=== PATIENT | male | born 1985 | race Caucasian/White ===

== ENCOUNTER → 2021-11-11 | Outpatient (CLI) | payer BC, SELFPAY ==
[2021-11-11 10:18] LABS: ALB/GLOB Ratio 0.9 RATIO (0.9-2.4); AST(SGOT) 18 U/L (15-37); Alanine Aminotransfer ALT/SGPT 27 U/L (16-61); Albumin, Serum 3.6 g/dL (3.2-5.0); Alkaline Phosphatase 80 U/L (45-117); Anion Gap 6 (5-15); BUN 15 mg/dL (7-18); BUN/Creat Ratio 17.6 RATIO (10-20); Calcium,Total 8.9 mg/dL (8.5-10.1); Chloride 100 mmol/L (98-107); Cholesterol 202 mg/dL (200); Creatinine, Serum 0.85 mg/dL (0.70-1.30); EST Glomerular Filtration Rate 107 mL/min (>60); Est Glom Filt Rate - Afr Amer 129 mL/min (>60); Globulin 3.8 g/dL (2.2-4.2); Glucose 151 mg/dL (74-106); High Density Lipoprotein 79 mg/dL; Potassium 4.4 mmol/L (3.5-5.1); Protein, Total 7.4 g/dL (6.4-8.2); Sodium Level 132 mmol/L (136-145); Thyroid Stim Hormone (TSH) 1.28 uIU/mL (0.358-3.74); Triglycerides 40 mg/dL; Very Low Density Lipoprotein 8 mg/dL (5-40)
[2021-11-11 10:22] LABS: Microalbumin,Random Urine 7.3 mg/L (NO RANGE EST.); Microalbumin:Creatinine Ratio 6.1 mg/g CRE (<30 mg/g CRE)
== END | disposition home or self-care (01) ==
DX: E10.65 Type 1 diabetes mellitus with hyperglycemia (principal); Z79.4 Long term (current) use of insulin
CPT/HCPCS: 80053; 80061; 82043; 82570; 84439; 84443

== ENCOUNTER → 2023-04-11 | Outpatient (CLI) | payer BC, SELFPAY ==
[2023-04-11 09:52] LABS: ALB/GLOB Ratio 0.9 RATIO (0.9-2.4); AST(SGOT) 49 U/L (15-37); Alanine Aminotransfer ALT/SGPT 36 U/L (16-61); Albumin, Serum 3.3 g/dL (3.2-5.0); Alkaline Phosphatase 86 U/L (45-117); Anion Gap 4 (5-15); BUN 17 mg/dL (7-18); BUN/Creat Ratio 20.7 RATIO (10-20); Chloride 110 mmol/L (98-107); Cholesterol 204 mg/dL (200); Creatinine, Serum 0.82 mg/dL (0.70-1.30); EST Glomerular Filtration Rate 110 mL/min (>60); Est Glom Filt Rate - Afr Amer 134 mL/min (>60); Globulin 3.5 g/dL (2.2-4.2); Glucose 125 mg/dL (74-106); High Density Lipoprotein 88 mg/dL; Potassium 4.2 mmol/L (3.5-5.1); Protein, Total 6.8 g/dL (6.4-8.2); Sodium Level 140 mmol/L (136-145); T4 Free Direct 0.96 ng/dL (0.76-1.46); Triglycerides 53 mg/dL; Very Low Density Lipoprotein 11 mg/dL (5-40)
[2023-04-11 11:39] LABS: Microalbumin,Random Urine 8.6 mg/L (NO RANGE EST.)
== END | disposition home or self-care (01) ==
DX: E10.65 Type 1 diabetes mellitus with hyperglycemia (principal); Z79.4 Long term (current) use of insulin
CPT/HCPCS: 80053; 80061; 82043; 82570; 84439; 84443

== ENCOUNTER → 2024-01-31 | Outpatient (CLI) | payer BC, SELFPAY ==
[2024-01-31 09:14] LABS: Hematocrit 43.7 % (40-54); Hemoglobin 14.6 g/dL (13.0-16.5); Mean Corp Hgb Conc 33.4 g/dL (32-36); Mean Corpuscular Volume 89.7 fL (80-94); Mean Platelet Vol. 9.9 fl (6.2-12.0); Platelet Count 200 K/mm3 (150-450); RBC Distribution Width SD 39.2 fl (35.1-43.9); Red Blood Count 4.87 M/mm3 (4.6-6.2); White Blood Count 7.8 K/mm3 (4.4-11.0)
[2024-01-31 09:36] LABS: AST(SGOT) 24 U/L (15-37); Alanine Aminotransfer ALT/SGPT 36 U/L (16-61); Albumin, Serum 3.2 g/dL (3.2-5.0); Alkaline Phosphatase 76 U/L (45-117); Anion Gap 2 (5-15); BUN 19 mg/dL (7-18); BUN/Creat Ratio 40.6 RATIO (10-20); Calcium,Total 9.1 mg/dL (8.5-10.1); Chloride 110 mmol/L (98-107); Creatinine, Serum 0.47 mg/dL (0.70-1.30); EST Glomerular Filtration Rate 211 mL/min (>60); Est Glom Filt Rate - Afr Amer 255 mL/min (>60); Globulin 3.2 g/dL (2.2-4.2); Glucose 108 mg/dL (74-106); PSA,Total - Annual Screen 0.95 ng/mL (0.00-4.00); Potassium 4.5 mmol/L (3.5-5.1); Protein, Total 6.4 g/dL (6.4-8.2); Sodium Level 139 mmol/L (136-145); T4 Free Direct 0.81 ng/dL (0.76-1.46)
--- OUTSIDE RECORDS SUMMARY | 2024-01-31 09:56 | XMS RPT_ITS | CCD ---
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 Name Role Phone REFERRING, PHY WO ID~[phone] Unavailable Unava ilable IEMMA, DOMINIC Unavailable Unavailable REFERRING, PHY WO ID~[phone] Unavailable Unava ilable IESCHUYLER, DOMINIC Unavailable Unavailable IEMMA, DOMINIC Unavailable Unavailable IEMMA, DOMINIC Unavailable Unavailable IEMMA, DOMINIC Unavailable Unavailable BERT PAUL Unavailable Unavailable JAYCE, DOMINIC Unavailable Unavailable Dominic Calloway Primary Care Provider Dominic Calloway Unavailable Unavailable Unavailable IeDominic payan MD Primary Care Provider IeDominic payan MD Primary Care Provider IeDominic payan MD Primary Care Provider IeDominic payan MD Primary Care Provider DOMINIC CALLOWAY Primary Care Unavailable ADEOLA BRONSON Referring Unavailable DOMINIC CALLOWAY Primary Care Unavailable Dominic Calloway MD Primary Care Provider MD DOMINIC CALLOWAY Referring Unavailable MD DOMINIC CALLOWAY Primary Care Unavailable MD DOMINIC CALLOWAY Attending Unavailable MD DOMINIC CALLOWAY Attending Unavailable Self, Referral Referring Unavailable MD DOMINIC CALLOWAY Primary Care Unavailable IeDominic payan MD Primary Care Provider Dominic Calloway MD Primary Care Provider NO GABRIELA CAREMD Primary Care Unavailable NO PRIMARY CAREMD Primary Care Unavailable ADEOLA BRONSON Attending Unavailable DOMINIC CALLOWAY Primary Care Unavailable ADEOLA BRONSON Attending Unavailable DOMINIC CALLOWAY Primary Care Unavailable GEORGINA CRAFT Attending Unavailable IEMMA, DOMINIC Cartwright Primary Care Unavailable ADEOLA BRONSON Attending Unavailable IEMMA, DOMINIC Cartwright Primary Care Unavailable ADEOLA BRONSON Attending Unavailable IEMMA, DOMINIC Cartwright Primary Care Unavailable IEMMA, DOMINIC Cartwright Attending Unavailable IEMMA, DOMINIC Cartwright Primary Care Unavailable DOMINIC TINOCO Attending Unavailable IEMMA, DOMINIC Cartwright Primary Care Unavailable SIVA ELLIS Referring Unavailable IEMMA, DOMINIC Cartwright Primary Care Unavailable HEINDEL DO~[id number], MATTHEW Gu Admitting Unavailable IEMMA, DOMINIC Cartwright Primary Care Unavailable HEINDEL DO~[id number], MATTHEW Gu Attending Unavailable IEMMA, DOMINIC Cartwright Primary Care Unavailable HEINDEL DO~[id number], MATTHEW Gu Attending Unavailable HEINDEL DO~[id number], MATTHEW Gu Admitting Unavailable Medications Current Medications Medication Drug Class(es) Dates Sig (Normalized) Sig (Original) Dexcom G6 Sensor device (3 sources) Start: 03-31-2023 Dexcom G6 Sensor device USE 1 EVERY 10 DAYS 03/31/2023 Active Start: 03-31-2023 Dexcom G6 Sens or device USE 1 EVERY 10 DAYS 0 03/31/2023 Active DEXCOM G7 SENSOR verna (11 sources) Start: 11-23-2023 DEXCOM G7 SENS OR verna Indications: Type 1 diabetes mellitus with hyperglycemia, with long-term current use of insulin (HCC) 1 Each every 10 days. 9 Each 3 11/23/2023 Active Start: 11-17-2023 End: 11-23-2023 DEXCOM G7 SENSOR verna Indica tions: Type 1 diabetes mellitus with hyperglycemia, with long-term current use of insulin (HCC) 1 Each every 10 days. 9 Each 3 11/17/2023 11/23/2023 Discontinued Start: 11-17-2023 DEXCOM G7 SENS OR verna Indications: Type 1 diabetes mellitus with hyperglycemia, with long-term current use of insulin (HCC) 1 Each every 10 days. 9 Each 3 11/17/2023 Active Start: 08-29-2023 End: 11-17-2023 DEXCOM G7 SENSOR verna Indica tions: Type 1 diabetes mellitus with hyperglycemia, with long-term current use of insulin (HCC) 1 Each every 10 days. 9 Each 3 08/29/2023 11/17/2023 Discontinued Start: 08-29-2023 DEXCOM G7 SENS OR verna Indications: Type 1 diabetes mellitus with hyperglycemia, with long-term current use of insulin (HCC) 1 Each every 10 days. 9 Each 3 08/29/2023 Active Start: 07-03-2023 End: 08-29-2023 DEXCOM G7 SENSOR verna Indica tions: Type 1 diabetes mellitus with hyperglycemia, with long-term current use of insulin ([facility]) 1 Each every 10 days. 9 Each 3 07/03/2023 08/29/2023 Discontinued Start: 07-03-2023 DEXCOM G7 SENS OR verna Indications: Type 1 diabetes mellitus with hyperglycemia, with long-term current use of insulin ([facility]) 1 Each every 10 days. 9 Each 3 07/03/2023 Active Comment on above: 1 Each every 10 days . FLUoxetine 20 mg oral tablet (20 sources) Serotonin Reuptake Inhibitor Start: 11-17-2019 FLUoxetine (PROzac) 20 mg tablet Take by mouth once daily. 11/17/2019 Active Comment on above: Take 20 mg by mouth once daily. glucagon 3 mg nasal powder (20 sources) Antihypoglycemic Agent Start: 08-22-2022 glucagon (BAQSIMI) 3 mg/actuation nasal spray Use 1 [place] in the nose as needed. May repeat after 15 minutes using a new device if there is no response. 2 Each 3 08/22/2022 Active Start: 10-02-2020 inject 1 mg by subcu taneous injection once glucagon (GLUCAGON EMERGENCY KIT, HUMAN,) 1 mg injection Inject 1 mg subcutaneously one time only for 1 dose. 1 Each 0 10/02/2020 Active Start: 11-18-2019 inject 1 mg by intra muscular injection once glucagon (GLUCAGON EMERGENCY KIT, HUMAN,) 1 mg solr Inject 1 mg intramuscularly one time only for 1 dose. 1 mg 2 11/18/2019 Active Comment on above: Inject 1 mg intramus cularly one time only for 1 dose. Inject 1 mg subcutan eously one time only for 1 dose. Use 1 [place] in the n ose as needed. May repeat after 15 minutes using a new device if there is no response. ibuprofen 800 mg oral tablet (15 sources) Nonsteroidal Anti-inflammatory Drug Start: 2 End: 3 take 1 tablet by mouth every eight hours as needed ibuprofen 800 mg tablet Take 1 tablet (800 mg) by mouth every 8 hours if needed. 07/06/2022 Active Comment on above: Take 1 tablet by irwin th every 8 hours as needed for pain. insulin lispro 100 unt/ml injectable solution (20 sources) Insulin Analog Start: insulin lispro (HUMALOG U-100 INSULIN) 100 unit/mL injection Indications: Type 1 diabetes mellitus with hyperglycemia, with long-term current use of insulin (HCC) FOR USE IN INSULIN PUMP, USING ABOUT 75 UNITS PER DAY 30 mL 1 08/24/2023 Active Start: 08-14-2023 End: 08-24-2023 insulin lispro (HUMALOG U-10 0 INSULIN) 100 unit/mL injection Indications: Type 1 diabetes mellitus with hyperglycemia, with long-term current use of insulin (HCC) Dose varies using up to 100 units per day 90 mL 1 08/14/2023 08/24/2023 Discontinued Start: 08-14-2023 End: 08-14-2023 insulin lispro (HUMALOG U-10 0 INSULIN) 100 unit/mL injection Indications: Type 1 diabetes mellitus with hyperglycemia, with long-term current use of insulin (HCC) To be filled by Provider 30 mL 1 08/14/2023 08/14/2023 Discontinued Start: 04-06-2023 End: 08-14-2023 insulin lispro (HUMALOG U-10 0 INSULIN) 100 unit/mL injection Indications: Type 1 diabetes mellitus with hyperglycemia, with long-term current use of insulin (HCC) FOR USE IN INSULIN PUMP, USING ABOUT 75 UNITS PER DAY 30 mL 3 04/06/2023 08/14/2023 Discontinued Start: 05-10-2021 End: 10-12-2022 insulin lispro (HUMALOG U-10 0 INSULIN) 100 unit/mL injection Indications: Type 1 diabetes mellitus with hyperglycemia, with long-term current use of insulin ([facility]) FOR USE IN INSULIN PUMP, USING ABOUT 75 UNITS PER DAY 30 mL 3 10/12/2022 Active Start: 11-14-2019 End: 01-30-2020 inject 6 [IU] by subcutaneous injection three times daily before mealtime HUMALOG KWIKPEN INSULIN 100 unit/mL Indications: Type 1 diabetes mellitus with hyperglycemia, with long-term current use of insulin ([facility]) Inject 6 Units subcutaneously three times daily before meals. 15 mL 3 01/30/2020 Active Start: 11-14-2019 HUMALOG KWIKPE N INSULIN 100 unit/mL HumaLOG U-100 In sulin 100 unit/mL injection FOR USE IN INSULIN PUMP, USING ABOUT 75 UNITS PER DAY 0 Active Comment on above: Inject 6 Units subcu taneously three times daily before meals. Sliding Scale FOR USE IN INSULIN P UMP, USING ABOUT 75 UNITS PER DAY lamoTRIgine 200 mg oral tablet (20 sources) Mood Stabilizer, Anti-epileptic Agent Start: 8 lamoTRIgine (LaMICtal) 200 mg tablet Take by mouth once daily. 07/17/2017 Active Comment on above: Take 200 mg by mouth once daily. meloxicam 15 mg oral tablet (2 sources) Nonsteroidal Anti-inflammatory Drug Start: End: 4 take 1 tablet by mouth once daily meloxicam (Mobic) 15 mg tablet Indications: Chronic left shoulder pain Take 1 tablet (15 mg) by mouth once daily for 10 days. 10 tablet 01/15/2024 01/25/2024 Active Completed/Discontinued Medications Medication Drug Class(es) Dates Sig (Normalized) Sig (Original) ACCU-CHEK GUIDE ME GLUCOSE MTR (20 sources) Start: 10-19-2019 End: 08-29-2023 ACCU-CHEK GUIDE ME GLUCOSE MTR CHECK GLUCOSE FOUR TIMES A DAY, BEFORE MEALS AND AT BEDTIME 0 10/19/2019 08/29/2023 Discontinued (Other) Start: 10-19-2019 ACCU-CHEK GUID E ME GLUCOSE MTR CHECK GLUCOSE FOUR TIMES A DAY, BEFORE MEALS AND AT BEDTIME 0 10/19/2019 Active Comment on above: CHECK GLUCOSE FOUR T IMES A DAY, BEFORE MEALS AND AT BEDTIME Blood-Glucose Sensor (DEXCOM G6 SENSOR) verna (17 sources) Start: 03-02-2023 Blood-Glucose Sensor (DEXCOM G6 SENSOR) verna Indications: Type 1 diabetes mellitus with hyperglycemia, with long-term current use of insulin (HCC) USE 1 EVERY 10 DAYS 3 Each 0 03/02/2023 Active Start: 11-21-2022 End: 03-02-2023 Blood-Glucose Sensor (DEXCOM G6 SENSOR) verna Indications: Type 1 diabetes mellitus with hyperglycemia, with long-term current use of insulin (HCC) USE 1 EVERY 10 DAYS 3 Each 11/21/2022 03/02/2023 Discontinued Start: 11-21-2022 Blood-Glucose Sensor (DEXCOM G6 SENSOR) verna Indications: Type 1 diabetes mellitus with hyperglycemia, with long-term current use of insulin (HCC) USE 1 EVERY 10 DAYS 3 Each 11 11/21/2022 Active Start: 06-14-2021 End: 05-03-2022 Blood-Glucose Sensor (DEXCOM G6 SENSOR) verna 1 Each every 10 days. 3 Each 06/14/2021 05/03/2022 Discontinued Start: 06-14-2021 Blood-Glucose Sensor (DEXCOM G6 SENSOR) verna 1 Each every 10 days. 3 Each 06/14/2021 Active Comment on above: 1 Each every 10 days . USE 1 EVERY 10 DAYS Blood-Glucose Transmitter (DEXCOM G6 TRANSMITTER) verna (18 sources) Start: 2 Blood-Glucose Transmitter (DEXCOM G6 TRANSMITTER) verna 1 Each every 3 months. 1 Each 06/14/2021 Active Comment on above: 1 Each every 3 month s. citalopram 20 mg oral tablet (1 source) Serotonin Reuptake Inhibitor Start: 4 take 0.5 tablet by mouth once daily, then take 1 tablet by mouth once daily Citalopram Hydrobromide 20 MG Oral Tablet take 1/2 tablet nightly for 10 nights then increase to one pill nightly Quantity: 30 Refills: 5 Ordered: 30-Jan-2014 Melissa Chang DO Start : 30-Jan-2014 Active clomiPHENE citrate 50 mg oral tablet (11 sources) Estrogen Agonist/Antagonist Start: 1 End: 2 take 1 capsule by mouth once clomiPHENe (SEROPHENE) 50 mg tablet TAKE 1 CAPSULE BY MOUTH EVERY MONDAY,MONDAY, AY. 40 tablet 5 01/01/2021 02/15/2022 Discontinued Comment on above: TAKE 1 CAPSULE BY MO UT EVERY MONDAY,MONDAY,MONDAY. DEXCOM G6 SENSOR verna (11 sources) Start: 3 End: 4 DEXCOM G6 SENSOR verna Indications: Type 1 diabetes mellitus with hyperglycemia, with long-term current use of insulin (HCC) USE 1 EVERY 10 DAYS 9 Each 1 03/28/2023 07/03/2023 Discontinued Start: 03-28-2023 DEXCOM G6 SENS OR verna Indications: Type 1 diabetes mellitus with hyperglycemia, with long-term current use of insulin (HCC) USE 1 EVERY 10 DAYS 9 Each 1 03/28/2023 Active Start: 05-03-2022 End: 11-21-2022 DEXCOM G6 SENSOR verna Indica tions: Type 1 diabetes mellitus with hyperglycemia, with long-term current use of insulin (HCC) USE 1 EVERY 10 DAYS 3 Each 11 05/03/2022 11/21/2022 Discontinued Start: 05-03-2022 DEXCOM G6 SENS OR verna Indications: Type 1 diabetes mellitus with hyperglycemia, with long-term current use of insulin (HCC) USE 1 EVERY 10 DAYS 3 Each 11 05/03/2022 Active Comment on above: USE 1 EVERY 10 DAYS DEXCOM G6 TRANSMITTER verna (8 sources) Start: 11-21-2022 End: 07-03-2023 DEXCOM G6 TRANSMITTER verna Indications: Type 1 diabetes mellitus with hyperglycemia, with long-term current use of insulin ([facility]) 1 Each every 3 months. 1 Each 11/21/2022 07/03/2023 Discontinued Start: 11-21-2022 DEXCOM G6 CHUA SMITTER verna Indications: Type 1 diabetes mellitus with hyperglycemia, with long-term current use of insulin ([facility]) 1 Each every 3 months. 1 Each 11/21/2022 Active Start: 08-22-2022 End: 11-21-2022 DEXCOM G6 TRANSMITTER verna I ndications: Type 1 diabetes mellitus with hyperglycemia, with long-term current use of insulin ([facility]) 1 Each every 3 months. 1 Each 08/22/2022 11/21/2022 Discontinued Start: 08-22-2022 DEXCOM G6 CHUA SMITTER verna Indications: Type 1 diabetes mellitus with hyperglycemia, with long-term current use of insulin ([facility]) 1 Each every 3 months. 1 Each 08/22/2022 Active Comment on above: 1 Each every 3 month s. 3 ml insulin glargine 100 unt/ml pen injector (20 sources) Insulin Analog Start: 05-26-2020 LANTUS SOLOSTAR U-100 INSULIN 100 unit/mL (3 mL) Inject 20 Units subcutaneously daily at bedtime. 5 Pen 2 05/26/2020 Active Start: 01-04-2020 End: 04-03-2020 inject 20 [IU] by subcutaneous injection once daily at bedtime, then inject 100 [IU] by subcutaneous injection LANTUS SOLOSTAR U-100 INSULIN 100 unit/mL (3 mL) Inject 20 Units subcutaneously daily at bedtime. 5 Pen 2 01/04/2020 Active Start: 10-19-2019 inject 20 [IU] by barton bcutaneous injection once daily at bedtime, then inject 100 [IU] by subcutaneous injection LANTUS SOLOSTAR U-100 INSULIN 100 unit/mL (3 mL) INJECT 20 UNITS SUBCUTANEOUSLY ONCE DAILY AT BEDTIME 0 10/19/2019 Active Comment on above: INJECT 20 UNITS SUBC UTANEOUSLY ONCE DAILY AT BEDTIME Inject 20 Units subc utaneously daily at bedtime. isopropyl alcohol 0.7 ml/ml medicated pad (20 sources) Start: 0 End: 4 alcohol swabs USE TO TEST BLOOD GLUCOSE 4 TIMES A DAY 0 10/19/2019 08/29/2023 Discontinued Comment on above: USE TO TEST BLOOD GL UCOSE 4 TIMES A DAY lithium carbonate 150 mg oral capsule (20 sources) Start: 1 End: 2 take 1 capsule by mouth twice daily lithium carbonate (ESKALITH) 150 mg capsule Take 150 mg by mouth twice daily. 0 04/21/2020 02/15/2022 Discontinued Start: 10-10-2019 take 0.5 tablet by m outh once daily in the morning, then take 1 tablet by mouth once daily at bedtime lithium carbonate 300 mg tablet TAKE 1/2 TABLET BY MOUTH EVERY MORNING AND 1 TABLET DAILY AT BEDTIME 0 10/10/2019 Active Comment on above: TAKE 1/2 TABLET BY M OUTH EVERY MORNING AND 1 TABLET DAILY AT BEDTIME Take 150 mg by mouth twice daily. ondansetron 4 mg oral tablet (17 sources) Serotonin-3 Receptor Antagonist Start: 0 take 1 tablet by mouth every eight hours as needed for nausea ondansetron (ZOFRAN) 4 mg tablet 1 TAB BY MOUTH EVERY 8 HOURS NEEDED NAUSEA. WATCH FOR SEDATION 0 10/15/2019 Active Comment on above: 1 TAB BY MOUTH EVERY 8 HOURS NEEDED NAUSEA. WATCH FOR SEDATION Problems Active Problems Problem Classification Problem Date Documented Da te Episodic/Chronic Abdominal pain (1 source) Right upper quadrant pain; Translations: [Right upper quadrant abdominal pain] Onset: 09-30-2023 Episodic Contraceptive and procreative management (3 sources) Patient encounter status; Translations: [Encounter for procreative management, unspecified] Episodic Diabetes mellitus with complications (20 sources) Hypoglycemia due to type 1 diabetes mellitus; Translations: [Type 1 diabetes mellitus with hypoglycemia without coma] Onset: 12-06-2019 01-30-2020 Chronic Diabetes mellitus without complication (20 sources) Type 1 diabetes mellitus; Translations: [Patient encounter status] Onset: 12-06-2019 12-06-2019 Chronic Headache; including migraine (1 source) Headache; Translations: [Headache] Episodic Mood disorders (7 sources) Dysthymic disorder; Translations: [Depressive disorder] Onset: 02-17-2017 05-31-2023 Chronic Mood disorders (2 sources) Mood disorders; Translations: [Depression, unspecified] Onset: 05-31-2023 Other nervous system disorders (2 sources) Other chronic pain; Translations: [Other chronic pain] Onset: 01-15-2024 Chronic Other non-traumatic joint disorders (5 sources) Pain in left shoulder; Translations: [Pain in joint, shoulder region] Onset: 01-15-2024 Episodic Other non-traumatic joint disorders (1 source) Chronic pain of left upper limb; Translations: [Pain in left shoulder] 01-15-2024 Episodic Other nutritional; endocrine; and metabolic disorders (20 sources) Obesity; Translations: [Obesity, unspecified] Onset: 05-23-2022 Chronic Other nutritional; endocrine; and metabolic disorders (1 source) Obesity, unspecified; Translations: [Class 1 obesity with serious comorbidity and body mass index (BMI) of 30.0 to 30.9 in adult, unspecified obesity type] Onset: 05-23-2022 Chronic Other nutritional; endocrine; and metabolic disorders (1 source) Body mass index (BMI) 30.0-30.9, adult; Translations: [Class 1 obesity with serious comorbidity and body mass index (BMI) of 30.0 to 30.9 in adult, unspecified obesity type] Onset: 05-23-2022 Chronic Residual codes; unclassified (2 sources) Obstructive sleep apnea syndrome; Translations: [Obstructive sleep apnea (adult)(pediatric)] Chronic Residual codes; unclassified (1 source) Disturbance in sleep behavior; Translations: [Sleep disturbance, unspecified] Episodic Residual codes; unclassified (12 sources) Taking high risk medication; Translations: [High risk medication use] Onset: 01-30-2020 01-30-2020 Unclassified (2 sources) Obstructive sleep apnea (adult) (pediatric); Translations: [Obstructive sleep apnea (adult) (pediatric)] Onset: 03-17-2017 Chronic Unclassified (1 source) Pain in left shoulder 01-24-2024 Past or Other Problems Problem Classification Problem Date Documented Da te Episodic/Chronic Diabetes mellitus without complication (20 sources) Insulin pump present; Translations: [Presence of insulin pump (external) (internal)] Onset: 05-23-2022 Episodic Medical examination/evaluation (2 sources) Encounter for general adult medical examination with abnormal findings; Translations: [Encounter for general adult medical examination with abnormal findings] Onset: 03-17-2017 Episodic Other aftercare (20 sources) Taking high risk medication; Translations: [Other termite exterminator helper (current) drug therapy] Onset: 01-30-2020 01-30-2020 Episodic Other male genital disorders (20 sources) Azoospermia; Translations: [Azoospermia] Onset: 11-10-2018 11-18-2019 Episodic Other male genital disorders (20 sources) Atrophy of testis; 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 INDICATION: Signs/Symptoms:PAIN. COMPARISON: None. ACCESSION NUMBER(S): [id number] ORDERING CLINICIAN: SIVA ELLIS FINDINGS: No acute fracture or malalignment. No significant degenerative changes. Soft tissues are unremarkable. IMPRESSION: 1. Unremarkable left shoulder radiographs. MACRO: None. Signed by: Danni Turner 01/26/2024 9:16 PM Dictation workstation: [id number] [facility] CNOVon 11-23-2023 CNOV Office Visit ([facility] Vince) BONNIE QUINTEROS ([id number]) 1985 M Date Time Provider Department 11/23/23 3:30 PM ADEOLA BRONSON During your visit today, we recorded the following information about you: Pulse Blood pressure Weight Height 83/minute 112/75 89.9 kg 1.702 m Adeola Bronson, [employer] STATION OPERATOR.[facility] 11/23/2023 3:57 PM Signed Subjective Bonnie Quinteros is a 38 year old male who presents for diabetes management. Timeline: Diagnosed with type 1 diabetes 10/2019. Established care with endocrinology 11/2019. Current medications for diabetes: Humalog via Tandem insulin pump Current pump settings: Basal rates: 0000 - 0600 1.2 0600 - 2000 0.8 1999 - 1.0 Active insulin time: 5 hours Carbohydrate ratio: 0000 - 0600 12 0600 - 2000 10 2000 - 0000 9.5 Insulin sensitivity/correction factor: 0000 - 0600 65 0600 - 1400 80 1400 - 0000 71 Blood glucose target: 110 Today's visit: Patient presents for management of his diabetes. CGM Data--Please see Lab tab and Scanned Docs tab for downloaded data from [employer] device on November 23, 2023: Pump is downloaded today: TIR: 78% High: 12% Low: 8% Patterns show glucose much more erratic on weekends. He has not been pre-bolusing for meals which causes hyperglycemia followed by hypoglycemia. He has no complaints or concerns today. 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 Diet: Typical breakfast: Sausage, bread, and eggs. Typical lunch: Salad with raisins and chicken. Typical dinner: Variable. Sweet potatoes, vegetables, chicken. Proficient in counting carbs. Exercise/activity: Walking. Denies frequent periods of hypoglycemia. Patient verbalized understanding of the signs and symptoms of hypoglycemia and its treatment options. Important Diabetes Lab History: HBA1C: 01/2020 6.4%. 06/2020 7.1%. 10/2020 6.9%. 04/2021 8.0%. 07/2021 7.7%. 11/2021 6.9%. 02/2022 6.6%. 05/2022 6.4%. 08/2022 6.6%. 11/2022 7.2%. 02/2023 6.6%. 05/2023 6.9%. 08/2023 6.5%. 11/2023 6.2%. Thyroid Function Testin01/2021 TSH 1.390, T4 1.1. 05/2022 TSH 1.190, T4 1.1. 04/2023 TSH 2.00, T4 0.96. Renal Function Testin10/2019 creatinine 0.7, GFR >60. 01/2021 creatinine 0.89, GFR >60. 05/2022 creatinine 0.88, GFR >60. 04/2023 creatinine 0.82, GFR >60. Urine for Microalbumin: 01/2021 orders placed. 05/2022 orders placed. 04/2023 Microalbumin : creatinine ratio 10. Lipid Profile: 01/2021 Cholesterol 178, triglycerides 37, HDL 79, LDL 191, VLDL 7. 05/2022 Cholesterol 189, triglycerides 37, HDL 86, LDL 96, VLDL 7. 04/2023 Cholesterol 204, triglycerides 53, HDL 88, LDL 105, VLDL 11. Liver Profile: 10/2019 AST 97, ALT 10, alk phos 97, total bili 0.4. 01/2021 AST 14, ALT 15, alk phos 56, total bili 0.4. 05/2022 AST 27, ALT 23, alk phos 84, total bili 0.5. 04/2023 AST 49, ALT 36, alk phos 86, total bili 0.5. C-peptide: 02/2020: 1.19 (0.8-3.9), glucose 108. 01/2021 0.3, glucose 122. Glutamic acid decarboxylase AB: 02/2020: POSITIVE >250 (<5.1). 01/2021 POSITIVE >120. Insulin antibody: 02/2020 <0.4 (<0.4). Important Diabetes Maintenance: Eye Exam: 10/19/2020 see scanned documents. 10/12/2021 see scanned documents. 10/14/2022 see scanned docs. Educated on importance of annual dilated eye exams. Instructed to fax me results. Diabetes Pertinent negatives for hypoglycemia include no dizziness, headaches, nervousness/anxiousnes s, seizures or tremors. Pertinent negatives for diabetes include no blurred vision, no chest pain, no polydipsia, no weakness and no weight loss. Review of Systems Constitutional: Negative for chills, fever, malaise/fatigue and weight loss. HENT: Negative for ear pain, hearing loss, nosebleeds and sore throat. Eyes: Negative for blurred vision and double vision. Respiratory: Negative for cough, hemoptysis, sputum production, shortness of breath and wheezing. Cardiovascular: Negative for chest pain, palpitations and leg swelling. Gastrointestinal: Negative for abdominal pain, blood in stool, constipation, diarrhea, heartburn, melena, nausea and vomiting. Genitourinary: Negative for dysuria, flank pain, frequency, hematuria and urgency. Musculoskeletal: Negative for back pain, falls, joint pain, myalgias and neck pain. Skin: Negative for itching and rash. Neurological: Negative for dizziness, tingling, tremors, sensory change, speech change, focal weakness, seizures, loss of consciousness, weakness and headaches. Endo/Heme/Allergies: Negative for environmental allergies and polydipsia. Does not bruise/bleed easily. Psychiatric/Behavioral : Negative for depression, hallucinations, memory loss, substance abuse and suicidal ideas. The patient is not nervous/anxious and does not have insomnia. PAST MEDICAL HISTORY No date: Depression 10/17/2019: Diabetes mellitus type 1 (HCC) No date: ROSCOE (obstructive sleep apnea) PAST SURGICAL HISTORY No date: PAST SURGI (more content not included)... Normal [facility] HEMOGLOBIN A1C (POC)on 11-22 HbA1c (Bld) [Mass fraction] 6.2 % Abnormal 4.3 - 5.6 % [facility] Comment on above: Location:[facility] [place], 1948 [facility] [address], [place], [address] Point of care (POC) Hemoglobin A1c (HGBA1C) testing is intended to assess glucose control and provide a management tool for patients known to have diabetes and their healthcare providers. Target HGBA1C levels may depend on specific clinical circumstances. POC HGBA1C is not intended for use as a diagnostic or screening test; laboratory-based testing should be used for diagnostic purposes. The following information is supplemental and may not be applicable to specific diabetes management situations: The POC device wool brusher provides a normal range of 4.2% to 6.5% for the HGBA1C POC test. However, the [place] Diabetes Association guidelines indicate that patients with HGBA1C in the range of 5.7% to 6.4% are at increased risk for development of diabetes and that intervention by lifestyle modification may be beneficial. A HGBA1C level greater than or equal to 6.5% is considered diagnostic of diabetes, pending confirmatory testing. Use of HGBA1C testing to evaluate glucose control may not be appropriate for patients with hemoglobin variants or other conditions (e.g. anemia) that alter red blood cell lifespan. Interpretation and review of laboratory results Abnormal [facility] 10-06-2023 CNPN Telephone (AGENDOG) BONNIE QUINTEROS ([id number]) 1985 Date Time Provider Department 10/06/23 ADEOLA BRONSON During your visit today, we recorded the following information about you: Shoshana Yates LPN 10/06/2023 1:23 PM Signed Pa for pt's Dexcom G6 Sensor was submitted via [employer] HAN : [id number] YOLANDA Garcia Jennifer, LPN 10/06/2023 1:44 PM Signed Received a fax from [employer] stating that pt's dexcom g6 sensor was approved and is valid from 10/06/2023-10/05/2024 and PA number is [id number] Shoshana Yates LPN Allergies As of Date: 10/06/2023 (No Known Allergies) Date Reviewed: 09/30/2023 Reviewed by: Grazyna Machado RN - Fully Assessed Reason for Visit: Insurance Authorization [[id number]] Cmt: Dexcom G6 Sensor -- APPROVED Prescriptions as of 10/06/2023 - DEXCOM G7 SENSOR verna 1 Each every 10 days. - insulin lispro (HUMALOG U-100 INSULIN) 100 unit/mL injection FOR USE IN INSULIN PUMP, USING ABOUT 75 UNITS PER DAY - BD INSULIN SYRINGE ULTRA-FINE 0.3 mL 31 gauge x /16 USE DAILY NEEDED FOR PUMP FAILURE - glucagon (BAQSIMI) 3 mg/actuation nasal spray Use 1 [place] in the nose as needed. May repeat after 15 minutes using a new device if there is no response. - FLUoxetine HCl 20 mg tablet Take 20 mg by mouth once daily. - lamoTRIgine (LAMICTAL) 200 mg tablet Take 200 mg by mouth once daily. 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 Author Type: Technologist Type: Allied Health Filed: 09/30/2023 17:01 Note Text: Radiology Service Progress Note PATIENT NAME: Bonnie Quinteros DATE OF SERVICE: September 30, 2023 TIME: 5:01 PM PATIENT IDENTITY VERIFICATION COMPLETED USING TWO (2) IDENTIFIERS: Name and Date of confirmed by patient verbally. FALL SCREENING: Has the patient had 2 falls in the last year or 1 fall with injury or currently using an Ambulatory Assistive Device (Walker, Cane, Wheelchair, Crutches, etc.)? No PATIENT GENDER DATA: Male PATIENT RELEVANT IMPLANT DATA REVIEWED: Not Applicable PATIENT PRESENTS WITH AN IMPLANTABLE OR ATTACHED BOOM TRUCK DRIVER: No RADIOLOGY DEPARTMENT: General X-ray: Exam(s) Completed: Chest X-Ray PERIPHERAL IV DATA: Not applicable SIGNED BY: Atif Machado RT(R) September 30, 2023 5:01 PM Normal [facility] CBC W Auto Differential pane l (Bld)on 09-30-2023 Basophils (Bld) [#/Vol] 0.04 10*3/uL Normal <0.11 [facility] Comment on above: Order Comment: Speci men Type: BLOOD SPECIMEN Ordering Facility: [facility] Address: [address] [place] [address] Performed By: #### 5 7021-8 #### [facility] CLIA [id number] [address] [place] [address] [place] Basophils/100 WBC (Bld) 0.5 % Normal [facility] Comment on above: Order Comment: Speci men Type: BLOOD SPECIMEN Ordering Facility: [facility] Address: [address] [place] [address] Performed By: #### 5 7021-8 #### [facility] CL[facility] [id number] [address] [place] [address] [place] Differential cell count method Nom (Bld) Auto Normal [facility] Comment on above: Order Comment: Speci men Type: BLOOD SPECIMEN Ordering Facility: [facility] Address: [address] [place] [address] Performed By: #### 5 7021-8 #### [facility] CLIA [id number] [address] [place], [place] [id number] [place] Eosinophils (Bld) [#/Vol] 0.17 10*3/uL Normal <0.46 [facility] Comment on above: Order Comment: Speci men Type: BLOOD SPECIMEN Ordering Facility: [facility] Address: [address] [place] [address] Performed By: #### 5 7021-8 #### [facility] CLIA [id number] [address] [place] [address] [place] Eosinophils/100 WBC (Bld) 2.1 % Normal [facility] Comment on above: Order Comment: Speci men Type: BLOOD SPECIMEN Ordering Facility: [facility] Address: [address] [place] [address] Performed By: #### 5 7021-8 #### [facility] CLIA [id number] [address] [place] [address] [place] Erythrocyte distribution width (RBC) [Ratio] 11.8 % Normal 11.5-15.0 [facility] Comment on above: Order Comment: Speci men Type: BLOOD SPECIMEN Ordering Facility: [facility] Address: [address] [place] [address] Performed By: #### 5 7021-8 #### [facility] CLIA [id number] [address] [place] [address] [place] Hematocrit (Bld) [Volume fraction] 43.2 % Normal 39.0-51.0 [facility] Comment on above: Order Comment: Speci men Type: BLOOD SPECIMEN Ordering Facility: [facility] Address: [address] [place] [address] Performed By: #### 5 7021-8 #### [facility] CLIA [id number] [address] [place] [address] [place] Hemoglobin (Bld) [Mass/Vol] 14.7 g/dL Normal 13.0-17.0 [facility] Comment on above: Order Comment: Speci men Type: BLOOD SPECIMEN Ordering Facility: [facility] Address: [address] [place] [address] Performed By: #### 5 7021-8 #### [facility] CLIA [id number] [address] [place] [address] [place] Immature granulocytes (Bld) [#/Vol] 10*3/uL Normal <0.10 [facility] Comment on above: Order Comment: Speci men Type: BLOOD SPECIMEN Ordering Facility: [facility] Address: [address] [place] [address] Performed By: #### 5 7021-8 #### [facility] CLIA [id number] [address] [place] [address] [place] Immature granulocytes/100 WBC (Bld) 0.2 % Normal [facility] Comment on above: Order Comment: Speci men Type: BLOOD SPECIMEN Ordering Facility: [facility] Address: [address] [place] [address] Performed By: #### 5 7021-8 #### [facility] CLIA [id number] [address] [place] [address] [place] Lymphocytes (Bld) [#/Vol] 2.36 10*3/uL Normal 1.00-4.00 [facility] Comment on above: Order Comment: Speci men Type: BLOOD SPECIMEN Ordering Facility: [facility] Address: [address] [place] [address] Performed By: #### 5 7021-8 #### [facility] CLIA [id number] [address] [place] [address] Lymphocytes/100 WBC (Bld) 29.3 % Normal [facility] Comment on above: Order Comment: Speci men Type: BLOOD SPECIMEN Ordering Facility: [facility] Address: [address] [place] [address] Performed By: #### 5 7021-8 #### [facility] CLIA [id number] [address] [place] [address] [place] MCH (RBC) [Entitic mass] 29.8 pg Normal 26.0-34.0 [facility] Comment on above: Order Comment: Speci men Type: BLOOD SPECIMEN Ordering Facility: [facility] Address: [address] [place] [address] Performed By: #### 5 7021-8 #### [facility] CLIA [id number] [address] [place] [address] [place] MCHC (RBC) [Mass/Vol] 34.0 g/dL Normal 30.5-36.0 [facility] Comment on above: Order Comment: Speci men Type: BLOOD SPECIMEN Ordering Facility: [facility] Address: [address] [place] [address] Performed By: #### 5 7021-8 #### [facility] CLIA [id number] [address] [place] [address] [place] MCV (RBC) [Entitic vol] 87.4 fL Normal 80.0-100.0 [facility] Comment on above: Order Comment: Speci men Type: BLOOD SPECIMEN Ordering Facility: [facility] Address: [address] [place] [address] Performed By: #### 5 7021-8 #### [facility] CLIA [id number] [address] [place] [address] [place] Monocytes (Bld) [#/Vol] 0.59 10*3/uL Normal <0.87 [facility] Comment on above: Order Comment: Speci men Type: BLOOD SPECIMEN Ordering Facility: [facility] Address: [address] [place] [address] Performed By: #### 5 7021-8 #### [facility] CLIA [id number] [address] [place] [address] [place] Monocytes/100 WBC (Bld) 7.3 % Normal [facility] Comment on above: Order Comment: Speci men Type: BLOOD SPECIMEN Ordering Facility: [facility] Address: [address] [place] [address] Performed By: #### 5 7021-8 #### [facility] CLIA [id number] [address] [place] [address] [place] Neutrophils (Bld) [#/Vol] 4.88 10*3/uL Normal 1.45-7.50 [facility] Comment on above: Order Comment: Speci men Type: BLOOD SPECIMEN Ordering Facility: [facility] Address: [address] [place] [address] Performed By: #### 5 7021-8 #### [facility] CLIA [id number] [address] [place] [address] [place] Neutrophils/100 WBC (Bld) 60.6 % Normal [facility] Comment on above: Order Comment: Speci men Type: BLOOD SPECIMEN Ordering Facility: [facility] Address: [address] [place] [address] Performed By: #### 5 7021-8 #### [facility] CLIA [id number] [address] [place] [address] [place] Nucleated RBC (Bld) [#/Vol] Normal [facility] Comment on above: Order Comment: Speci men Type: BLOOD SPECIMEN Ordering Facility: [facility] Address: [address] [place] [address] Performed By: #### 5 7021-8 #### [facility] CLIA [id number] [address] [place] [address] [place] Nucleated RBC/100 WBC (Bld) [Ratio] Normal [facility] Comment on above: Order Comment: Speci men Type: BLOOD SPECIMEN Ordering Facility: [facility] Address: [address] [place] [address] Performed By: #### 5 7021-8 #### [facility] CLIA [id number] [address] [place], [place] [id number] [place] Platelet mean volume (Bld) [Entitic vol] 9.5 fL Normal 9.0-12.7 [facility] Comment on above: Order Comment: Speci men Type: BLOOD SPECIMEN Ordering Facility: [facility] Address: [address] [place] [address] Performed By: #### 5 7021-8 #### [facility] CLIA [id number] [address] [place] [address] [place] Platelets (Bld) [#/Vol] 199 10*3/uL Normal 150-400 [facility] Comment on above: Order Comment: Speci men Type: BLOOD SPECIMEN Ordering Facility: [facility] Address: [address] [place] [address] Performed By: #### 5 7021-8 #### [facility] CLIA [id number] [address] [place] [address] [place] RBC (Bld) [#/Vol] 4.94 10*6/uL Normal 4.20-6.00 [facility] Comment on above: Order Comment: Speci men Type: BLOOD SPECIMEN Ordering Facility: [facility] Address: [address] [place] [address] Performed By: #### 5 7021-8 #### [facility] CLIA [id number] [address] [place] [address] WBC (Bld) [#/Vol] 8.06 10*3/uL Normal 3.70-11.00 [facility] Comment on above: Order Comment: Speci men Type: BLOOD SPECIMEN Ordering Facility: [facility] Address: [address] [place] [address] Performed By: #### 5 7021-8 #### [facility] CLIA [id number] [address] [place] [address] Comprehensive metabolic 2000 panelon 09-30-2023 Albumin [Mass/Vol] 4.0 g/dL Normal 3.9-4.9 [facility] Comment on above: Order Comment: Speci men Type: BLOOD SPECIMENOrdering Facility: [facility] Address: [address] [place] [address] Performed By: #### 2 4323-8, 3040-3 ####[facility]IA [id number] [address] OF [facility] ALP [Catalytic activity/Vol] 76 U/L Normal 38-113 [facility] Comment on above: Order Comment: Speci men Type: BLOOD SPECIMENOrdering Facility: [facility] Address: [address] [place] [address] Performed By: #### 2 4323-8, 3040-3 ####[facility] LABCLIA [id number] [place] [id number] [facility] ALT [Catalytic activity/Vol] 23 U/L Normal 10-54 [facility] Comment on above: Order Comment: Speci men Type: BLOOD SPECIMENOrdering Facility: [facility] Address: [address] [place] [address] Performed By: #### 2 4323-8, 3040-3 ####[facility] LABCLIA [id number] [place] [address] [place] Anion gap [Moles/Vol] 6 mmol/L Low 8-15 [facility] Comment on above: Order Comment: Speci men Type: BLOOD SPECIMENOrdering Facility: [facility] Address: [address] [place] [address] Performed By: #### 2 4323-8, 3040-3 ####[facility] LAB[facility]IA [id number] [place] [address] [place] AST [Catalytic activity/Vol] 20 U/L Normal 14-40 [facility] Comment on above: Order Comment: Speci men Type: BLOOD SPECIMENOrdering Facility: [facility] Address: [address] [place] [address] Performed By: #### 2 4323-8, 3039-3 ####[facility] LABCLIA [id number] [place] [address] [place] Bilirubin [Mass/Vol] 0.6 mg/dL Normal 0.2-1.3 [facility] Comment on above: Order Comment: Speci men Type: BLOOD SPECIMENOrdering Facility: [facility] Address: [address] [place] [address] Result Comment: Use of this assay is not recommended for patients undergoing treatment with eltrombopag due to the potential for falsely elevated results. Performed By: #### 2 4323-8, 0-3 ####[facility] LABCLIA [id number] [place] [address] [place] Calcium [Mass/Vol] 9.3 mg/dL Normal 8.5-10.2 [facility] Comment on above: Order Comment: Speci men Type: BLOOD SPECIMENOrdering Facility: [facility] Address: [address] [place] [address] Performed By: #### 2 4323-8, 3040-3 ####[facility] LABCLIA [id number] [place] [id number] [place] Chloride [Moles/Vol] 107 mmol/L Normal 98-107 [facility] Comment on above: Order Comment: Speci men Type: BLOOD SPECIMENOrdering Facility: [facility] Address: [address] [place] [address] Performed By: #### 2 4323-8, 0-3 ####[facility] LABIA [id number] [address] OF [facility] CO2 [Moles/Vol] 26 mmol/L Normal 22-30 [facility] Comment on above: Order Comment: Speci men Type: BLOOD SPECIMENOrdering Facility: [facility] Address: [address] [place] [address] Performed By: #### 2 4323-8, 3039-3 ####[facility] LABIA [id number] [address] Creatinine [Mass/Vol] 0.85 mg/dL Normal 0.73-1.22 [facility] Comment on above: Order Comment: Speci men Type: BLOOD SPECIMENOrdering Facility: [facility] Address: [address] [place] [address] Result Comment: Use of this assay is not recommended for patients undergoing treatment with phenindione, due to the potential for falsely depressed results. Performed By: #### 2 4323-8, 3039-3 ####[facility] LABIA [id number] [address] Creatinine and Glomerular filtration rate.predicted panel (S/P/Bld) 113 mL/min/1.73m??? Normal >=60 [facility] Comment on above: Order Comment: Speci men Type: BLOOD SPECIMENOrdering Facility: [facility] Address: [address] [place] [address] Result Comment: Deepthi mated Glomerular Filtration Rate (eGFR) is calculated using the 2020 CKD-EPI creatinine equation. This equation utilizes serum creatinine, sex, and age as parameters. The creatinine assay has traceable calibration to isotope dilution-mass spectrometry. Refer to KDIGO guidelines for clinical interpretation. In patients with unstable renal function, e.g. those with acute kidney injury, the eGFR may not accurately reflect actual GFR. Performed By: #### 2 4323-8, 3039-3 ####[facility] LABCLIA [id number] [place] [address] [place] Glucose [Mass/Vol] 141 mg/dL High 74-99 [facility] Comment on above: Order Comment: Speci men Type: BLOOD SPECIMENOrdering Facility: [facility] Address: [address] [place] [address] Result Comment: The [place] Diabetes Association (ADA) provides guidance for cutoff values for fasting glucose and random glucose. The ADA defines fasting as no caloric intake for at least 8 hours. Fasting plasma glucose results between 100 to 125 mg/dL indicate increased risk for diabetes (prediabetes). Fasting plasma glucose results greater than or equal to 126 mg/dL meet the criteria for diagnosis of diabetes. In the absence of unequivocal hyperglycemia, results should be confirmed by repeat testing. In a patient with classic symptoms of hyperglycemia or hyperglycemic crisis, random plasma glucose results greater than or equal to 200 mg/dL meet the criteria for diagnosis of diabetes. Reference: Standards of Medical Care in Diabetes 2016, [place] Diabetes Association. Diabetes Care. 2016.39(Suppl 1). Performed By: #### 2 4323-8, 3039-3 ####[facility] LABCLIA [id number] [place] [address] [place] Potassium [Moles/Vol] 4.0 mmol/L Normal 3.7-5.1 [facility] Comment on above: Order Comment: Speci men Type: BLOOD SPECIMENOrdering Facility: [facility] Address: [address] [place] [address] Performed By: #### 2 4323-8, 3039-3 ####[facility] LABCLIA [id number] [place] [address] [place] Protein [Mass/Vol] 6.8 g/dL Normal 6.3-8.0 [facility] Comment on above: Order Comment: Speci men Type: BLOOD SPECIMENOrdering Facility: [facility] Address: [address] [place] [address] Performed By: #### 2 4323-8, 3039-3 ####[facility] LABCLIA [id number] [place], [place] [address] [place] [address] Sodium [Moles/Vol] 139 mmol/L Normal 136-144 [facility] Comment on above: Order Comment: Speci men Type: BLOOD SPECIMENOrdering Facility: [facility] Address: [address] [place] [address] Performed By: #### 2 4323-8, 3040-3 ####[facility] LABCLIA [id number] [place] [id number] [facility] Urea nitrogen [Mass/Vol] 18 mg/dL Normal 9-24 [facility] Comment on above: Order Comment: Speci men Type: BLOOD SPECIMENOrdering Facility: [facility] Address: [address] [place] [address] Performed By: #### 2 4323-8, 3040-3 ####[facility] LABCLIA [id number] [place] [id number] [facility] ECG COMPLETEon 09-30-2023 ECG COMPLETE Ventricular Rate : 5 5 BPM Atrial Rate : 55 BPM P-R Interval : 168 ms QRS Duration : 104 ms Q-T Interval : 446 ms QTC Calculation(Bazett) : [address] [place] : 38 [address] R [address] [place] : [address] [place] : 26 degrees SINUS BRADYCARDIA OTHERWISE NORMAL ECG NO PREVIOUS ECGS AVAILABLE Confirmed by GEORGINA CRAFT MD ([id number]) on 10/03/2023 7:10:37 PM NAME : BONNIE QUINTEROS PID : [id number] : 1985 Gender : Male Race : ORD : [id number] Procedure Date : Sep 30 2023 16:14:43 Edit Date : Oct 03 2023 19:10:39 Diagnosis: SINUS BRADYCARDIA OTHERWISE NORMAL ECG NO PREVIOUS ECGS AVAILABLE Confirmed by GEORGINA CRAFT MD ([id number]) on 10/03/2023 7:10:37 PM Test Reason : Chest Pain Location : 144 : [facility]-ED ED Overread By : GEORGINA CRAFT MD Edited By : GEORGINA CRAFT MD Referred By : , Acquired by : CHRIS ROSALES [facility] ED NOTEon 09-30-2023 ED NOTE HNO ID: [id number] Author: ATIF MACHADO RT(Carmen) Service: ? Author Type: Technologist Type: ED Notes Filed: 09/30/2023 17:02 Note Text: XR Done Normal [facility] ED PROV NOTEon 09-30-2023 ED PROV NOTE HNO ID: [id number] Author: GEORGINA CRAFT MD Service: Emergency Medicine Author Type: Resident Type: ED Provider Notes Filed: 10/01/2023 15:14 Note Text: Attestation signed by Georgina Craft MD at 10/01/2023 3:14 PM Attending Note I evaluated the patient and personally participated in the han components. I agree with the resident's findings and plan as documented and have discussed the case and management of the patient's care with the resident. Signature: Georgina Craft MD Date: 10/01/2023 Time: 3:14 PM ED Provider Note Patient Name: Bonnie Quinteros : 1985 SERVICE DATE: 09/30/23 History Patient presents with: Abdominal Pain: RUQ abdominal pain started last night 38 y/o M presents to the ED with a CC of RUQ since yesterday evening. No hx of cholecystitis, GB stones, chronic abdominal pathology, previous surgeries. He has hx of T1DM which he is compliant with insulin. Drinks ETOh occasionally. Patient reports his pain began yesterday evening/afternoon. He describes it located RUQ; no exacerbating or alleviating factors. Describes sharp and constant. Does not wrap around back, abdomen, nor does it radiate to groin/chest. He denies associated nausea/vomiting. He denies change in BM or voiding. No pleuritic pain reported. No leg swelling or SOB reported. PAST MEDICAL HISTORY Diagnosis Date Depression Diabetes mellitus type 1 (HCC) 10/17/2019 [place] (obstructive sleep apnea) PAST SURGICAL HISTORY Procedure Laterality Date PAST SURGICAL HISTORY OF wisdom teeth TESTICULAR BIOPSY PREP 02/2022 FAMILY HISTORY Problem Relation Age of Onset Thyroid Mother Social History Tobacco Use Smoking status: Former Types: Cigarettes Quit date: 03/24/2000 Years since quittin.5 Smokeless tobacco: Never Vaping Use Vaping Use: Some days Substances: THC Substance and Sexual Activity Alcohol use: Yes Comment: rare wine Drug use: Yes Types: Marijuana Comment: daily Sexual activity: Not on file ALLERGIES No Known Allergies Review of Systems Negative unless listed above in HPI. Physical Exam Vitals [09/30/23 1531] BP Pulse Temp Temp src Resp SpO2 Weight Height 131/77 57 36.4 ?C (97.5 ?F) Temporal 18 98 % 86.2 kg (190 lb) -- Physical Exam Constitutional: Appearance: He is well-developed. HENT: Head: Normocephalic and atraumatic. Eyes: General: No scleral icterus. Pupils: Pupils are equal, round, and reactive to light. Cardiovascular: Rate and Rhythm: Normal rate and regular rhythm. Pulmonary: Effort: Pulmonary effort is normal. Breath sounds: Normal breath sounds. Abdominal: Palpations: Abdomen is soft. Tenderness: There is no abdominal tenderness. There is no guarding or rebound. Skin: General: Skin is warm and dry. Coloration: Skin is not jaundiced or pale. Neurological: Mental Status: He is alert and oriented to person, place, and time. Diagnostic Testing ED Labs Ordered and Reviewed - No data to display Procedures ED Course / Clinical Impression ED Course as of 09/30/23 1592 Maged Barnett's Documentation Sat Sep 30, 2023 1618 On my evaluation of the ECG obtained it appears Normal sinus rhythm. No signs of bradycardia, sick sinus, or tachydysrhythmias noted. No ectopic beats, signs of heart block, prolonged QT, or any other interval abnormalities noted. There are no VT depressions indicative of pericarditis. There are no ST segment elevations or depressions, new inverted T waves] suggestive of cardiac ischemia. No peaked T waves or u waves noted. Overall impression of this ECG is normal Sinus rhythm . 1619 WBC: 8.06 1619 Hemoglobin: 14.7 Clinical Impressions as of 09/30/23 2254 Right upper quadrant abdominal pain MDM / Disposition / Plan MDM This is a 38 y/o M who presents to the ED today with RUQ pain since yesterday. VS unremarkable. No tenderness , distension, cueto's sign on exam. No symptoms of GI related illness or GB pathology other than RUQ pain. My overall suspicion for acute cholecystitis is very low without reproducible tenderness, jaundice, nausea, vomiting, normal skin and sclera, no hx of GB stones/sludge. Also considered was right lower lung irritation but not very likely given no SOB, rales, or other evidence of PE. Patient PERCs out. Will obtain 2V CXR, CBC, lipase, CMP. If evidence of biliary stasis, transaminitis will consider advanced imaging otherwise will have OP f/u given benign presentation. CMP, CBC, and lipase all unremarkable. XR unremarkable for cardiopulmonary disease including infiltrates. Will dc with return precautions. The patient was DISCHARGED in stable condition from the Emergency Department and demonstrating stable vital signs at the time of discharge. I do not feel that the (more content not included)... Normal [facility] Lipase SerPl-cCncon 09-30-19 24 Lipase [Catalytic activity/Vol] 12 U/L Low 16-61 [facility] Comment on above: Order Comment: Speci men Type: BLOOD SPECIMENOrdering Facility: [facility] Address: [address] [place] [address] Performed By: #### 2 4323-8, 3040-3 ####[facility] LABCLIA [id number] [place] [address] [place] XR CHEST 2V FRONTAL/LATon XR CHEST 2V FRONTAL/LAT * * *Final Report* * * DATE OF EXAM: Sep 30 2023 5:03PM ANX [id number] - XR CHEST 2V FRONTAL/LAT / PROCEDURE REASON: Other * * * * Physician Interpretation * * * * EXAM: XR CHEST 2V FRONTAL/LAT CLINICAL HISTORY: Other Other, RUQ pain COMPARISON: No available prior. RESULT: Lines, tubes, and devices: None. Lungs and pleura: Bilateral lung cardenas are clear. No pneumothorax or suggestion for obvious/significant pleural effusions. Cardiomediastinal silhouette: Normal cardiomediastinal silhouette. IMPRESSION: No acute cardiopulmonary process. Metals Analyst: SAHARA Transcribe Date/Time: Sep 30 2023 6:06P Dictated by : CABRERA AYERS MD This examination was interpreted and the report reviewed and electronically signed by: CABRERA AYERS MD on Sep 30 2023 6:06PM EST [id number] Normal [facility] CNOVon 08-29-2023 CNOV Office Visit (AGENDO G) VANDANAMYLES ([id number]) 1985 Date Time Provider Department 08/29/23 3:30 PM ADEOLA BRONSON During your visit today, we recorded the following information about you: Pulse Blood pressure Weight Height 54/minute 148/88 89.8 kg 1.702 m Adeola Bronson, PUMP STATION OPERATOR.WAIST CUTTER 08/29/2023 4:11 PM Signed Subjective Bonnie Quinteros is a 38 year old male who presents for diabetes management. Timeline: Diagnosed with type 1 diabetes 10/2019. Established care with endocrinology 11/2019. Current medications for diabetes: Humalog via Tandem insulin pump Current pump settings: Basal rates: 0000 - 0600 1.2 0600 - 2000 0.8 1999 - 1.0 Active insulin time: 5 hours Carbohydrate ratio: 0000 - 0600 12 0600 - 2000 9.5 2000 - 0000 9.5 Insulin sensitivity/correction factor: 0000 - 0600 65 0600 - 1400 71 1400 - 0000 71 Blood glucose target: 110 Today's visit: Patient presents for management of his diabetes. Pump is downloaded today: TIR: 79% High: 16% Low: 4% Patterns show glucose much more erratic on weekends. More stable on weekdays. On weekdays, he has more hypoglycemia in the afternoons when he exercises. He has no complaints or concerns today. 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 Diet: Typical breakfast: Sausage, bread, and eggs. Typical lunch: Salad with raisins and chicken. Typical dinner: Variable. Sweet potatoes, vegetables, chicken. Proficient in counting carbs. Exercise/activity: Walking. Denies frequent periods of hypoglycemia. Patient verbalized understanding of the signs and symptoms of hypoglycemia and its treatment options. Important Diabetes Lab History: HBA1C: 01/2020 6.4%. 06/2020 7.1%. 10/2020 6.9%. 04/2021 8.0%. 07/2021 7.7%. 11/2021 6.9%. 02/2022 6.6%. 05/2022 6.4%. 08/2022 6.6%. 11/2022 7.2%. 02/2023 6.6%. 05/2023 6.9%. 08/2023 6.5%. Thyroid Function Testin01/2021 TSH 1.390, T4 1.1. 05/2022 TSH 1.190, T4 1.1. 04/2023 TSH 2.00, T4 0.96. Renal Function Testin10/2019 creatinine 0.7, GFR >60. 01/2021 creatinine 0.89, GFR >60. 05/2022 creatinine 0.88, GFR >60. 04/2023 creatinine 0.82, GFR >60. Urine for Microalbumin: 01/2021 orders placed. 05/2022 orders placed. 04/2023 Microalbumin : creatinine ratio 10. Lipid Profile: 01/2021 Cholesterol 178, triglycerides 37, HDL 79, LDL 191, VLDL 7. 05/2022 Cholesterol 189, triglycerides 37, HDL 86, LDL 96, VLDL 7. 04/2023 Cholesterol 204, triglycerides 53, HDL 88, LDL 105, VLDL 11. Liver Profile: 10/2019 AST 97, ALT 10, alk phos 97, total bili 0.4. 01/2021 AST 14, ALT 15, alk phos 56, total bili 0.4. 05/2022 AST 27, ALT 23, alk phos 84, total bili 0.5. 04/2023 AST 49, ALT 36, alk phos 86, total bili 0.5. C-peptide: 02/2020: 1.19 (0.8-3.9), glucose 108. 01/2021 0.3, glucose 122. Glutamic acid decarboxylase AB: 02/2020: POSITIVE >250 (<5.1). 01/2021 POSITIVE >120. Insulin antibody: 02/2020 <0.4 (<0.4). Important Diabetes Maintenance: Eye Exam: 10/19/2020 see scanned documents. 10/12/2021 see scanned documents. 10/14/2022 see scanned docs. Educated on importance of annual dilated eye exams. Instructed to fax me results. Diabetes Pertinent negatives for hypoglycemia include no dizziness, headaches, nervousness/anxiousnes s, seizures or tremors. Pertinent negatives for diabetes include no blurred vision, no chest pain, no polydipsia, no weakness and no weight loss. Review of Systems Constitutional: Negative for chills, fever, malaise/fatigue and weight loss. HENT: Negative for ear pain, hearing loss, nosebleeds and sore throat. Eyes: Negative for blurred vision and double vision. Respiratory: Negative for cough, hemoptysis, sputum production, shortness of breath and wheezing. Cardiovascular: Negative for chest pain, palpitations and leg swelling. Gastrointestinal: Negative for abdominal pain, blood in stool, constipation, diarrhea, heartburn, melena, nausea and vomiting. Genitourinary: Negative for dysuria, flank pain, frequency, hematuria and urgency. Musculoskeletal: Negative for back pain, falls, joint pain, myalgias and neck pain. Skin: Negative for itching and rash. Neurological: Negative for dizziness, tingling, tremors, sensory change, speech change, focal weakness, seizures, loss of consciousness, weakness and headaches. Endo/Heme/Allergies: Negative for environmental allergies and polydipsia. Does not bruise/bleed easily. Psychiatric/Behavioral : Negative for depression, hallucinations, memory loss, substance abuse and suicidal ideas. The patient is not nervous/anxious and does not have insomnia. PAST MEDICAL HISTORY Diagnosis Date Depression Diabetes mellitus type 1 (HCC) 10/17/2019 [place] (obstructive sleep apnea) PAST SURGICAL HISTORY Procedure Laterality Date PAST SURGICAL HISTORY OF wisdom teeth TESTICULAR BIOPSY PREP 02/2022 FAMILY HISTORY Problem Relation (more content not included)... Normal [facility] HEMOGLOBIN A1C (POC)on 08-28 HbA1c (Bld) [Mass fraction] 6.5 % Abnormal 4.3 - 5.6 % [facility] Comment on above: [facility] [place] [address] [facility] [address], [place], [place], [address] Point of care (POC) Hemoglobin A1c (HGBA1C) testing is intended to assess glucose control and provide a management tool for patients known to have diabetes and their healthcare providers. Target HGBA1C levels may depend on specific clinical circumstances. POC HGBA1C is not intended for use as a diagnostic or screening test; laboratory-based testing should be used for diagnostic purposes. The following information is supplemental and may not be applicable to specific diabetes management situations: The POC device wool brusher provides a normal range of 4.2% to 6.5% for the HGBA1C POC test. However, the [place] [employer] guidelines indicate that patients with HGBA1C in the range of 5.7% to 6.4% are at increased risk for development of diabetes and that intervention by lifestyle modification may be beneficial. A HGBA1C level greater than or equal to 6.5% is considered diagnostic of diabetes, pending confirmatory testing. Use of HGBA1C testing to evaluate glucose control may not be appropriate for patients with hemoglobin variants or other conditions (e.g. anemia) that alter red blood cell lifespan. Interpretation and review of laboratory results Abnormal [facility] CNOVon 05-25-2023 CNCHRISTIANO Office Visit (MARIO Clarke) BONNIE QUINTEROS ([id number]) 1985 M Date Time Provider Department 05/25/23 3:00 PM ADEOLA BRONSON During your visit today, we recorded the following information about you: Pulse Blood pressure Weight Height 55/minute 121/74 88.5 kg 1.702 m Adeola Bronson, JOSI.WAIST CUTTER 05/25/2023 3:16 PM Signed Subjective Bonnie Quinteros is a 37 year old male who presents for diabetes management. Timeline: Diagnosed with type 1 diabetes 10/2019. Established care with endocrinology 11/2019. Current medications for diabetes: Humalog via Tandem insulin pump Current pump settings: Basal rates: 0000 - 06 1.2 599 - 1999 0.8 1999 - 1.0 Active insulin time: 5 hours Carbohydrate ratio: 0000 - 0600 12 0600 - 2000 9.5 2000 - 9.5 Insulin sensitivity/correction factor: 0000 - 0600 65 0600 - 1400 71 1400 - 0000 71 Blood glucose target: 110 Today's visit: Patient presents for management of his diabetes. Pump is downloaded today: TIR: 85% High: 10% Low: 4% Patterns show hypoglycemia in the afternoon during and after exercise. He has no complaints or concerns today. 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 Diet: Typical breakfast: Sausage, bread, and eggs. Typical lunch: Salad with raisins and chicken. Typical dinner: Variable. Sweet potatoes, vegetables, chicken. Proficient in counting carbs. Exercise/activity: Walking. Denies frequent periods of hypoglycemia. Patient verbalized understanding of the signs and symptoms of hypoglycemia and its treatment options. Important Diabetes Lab History: HBA1C: 01/2020 6.4%. 06/2020 7.1%. 10/2020 6.9%. 04/2021 8.0%. 07/2021 7.7%. 11/2021 6.9%. 02/2022 6.6%. 05/2022 6.4%. 08/2022 6.6%. 11/2022 7.2%. 02/2023 6.6%. 05/2023 6.9%. Thyroid Function Testin01/2021 TSH 1.390, T4 1.1. 05/2022 TSH 1.190, T4 1.1. 04/2023 TSH 2.00, T4 0.96. Renal Function Testin10/2019 creatinine 0.7, GFR >60. 01/2021 creatinine 0.89, GFR >60. 05/2022 creatinine 0.88, GFR >60. 04/2023 creatinine 0.82, GFR >60. Urine for Microalbumin: 01/2021 orders placed. 05/2022 orders placed. 04/2023 Microalbumin : creatinine ratio 10. Lipid Profile: 01/2021 Cholesterol 178, triglycerides 37, HDL 79, LDL 191, VLDL 7. 05/2022 Cholesterol 189, triglycerides 37, HDL 86, LDL 96, VLDL 7. 04/2023 Cholesterol 204, triglycerides 53, HDL 88, LDL 105, VLDL 11. Liver Profile: 10/2019 AST 97, ALT 10, alk phos 97, total bili 0.4. 01/2021 AST 14, ALT 15, alk phos 56, total bili 0.4. 05/2022 AST 27, ALT 23, alk phos 84, total bili 0.5. 04/2023 AST 49, ALT 36, alk phos 86, total bili 0.5. C-peptide: 02/2020: 1.19 (0.8-3.9), glucose 108. 01/2021 0.3, glucose 122. Glutamic acid decarboxylase AB: 02/2020: POSITIVE >250 (<5.1). 01/2021 POSITIVE >120. Insulin antibody: 02/2020 <0.4 (<0.4). Important Diabetes Maintenance: Eye Exam: 10/19/2020 see scanned documents. 10/12/2021 see scanned documents. 10/14/2022 see scanned docs. Educated on importance of annual dilated eye exams. Instructed to fax me results. Diabetes Pertinent negatives for hypoglycemia include no dizziness, headaches, nervousness/anxiousnes s, seizures or tremors. Pertinent negatives for diabetes include no blurred vision, no chest pain, no polydipsia, no weakness and no weight loss. Review of Systems Constitutional: Negative for chills, fever, malaise/fatigue and weight loss. HENT: Negative for ear pain, hearing loss, nosebleeds and sore throat. Eyes: Negative for blurred vision and double vision. Respiratory: Negative for cough, hemoptysis, sputum production, shortness of breath and wheezing. Cardiovascular: Negative for chest pain, palpitations and leg swelling. Gastrointestinal: Negative for abdominal pain, blood in stool, constipation, diarrhea, heartburn, melena, nausea and vomiting. Genitourinary: Negative for dysuria, flank pain, frequency, hematuria and urgency. Musculoskeletal: Negative for back pain, falls, joint pain, myalgias and neck pain. Skin: Negative for itching and rash. Neurological: Negative for dizziness, tingling, tremors, sensory change, speech change, focal weakness, seizures, loss of consciousness, weakness and headaches. Endo/Heme/Allergies: Negative for environmental allergies and polydipsia. Does not bruise/bleed easily. Psychiatric/Behavioral : Negative for depression, hallucinations, memory loss, substance abuse and suicidal ideas. The patient is not nervous/anxious and does not have insomnia. PAST MEDICAL HISTORY Diagnosis Date Depression Diabetes mellitus type 1 (HCC) 10/17/2019 [place]E (obstructive sleep apnea) PAST SURGICAL HISTORY Procedure Laterality Date PAST SURGICAL HISTORY OF wisdom teeth TESTICULAR BIOPSY PREP 02/2022 FAMILY HISTORY Problem Relation Age of Onset Thyroid Mother Social History Tobacco Use Smoking status: Former Types: C (more content not included)... Normal [facility] HEMOGLOBIN A1C (POC)on 05-25 HbA1c (Bld) [Mass fraction] 6.9 % Abnormal 4.3 - 5.6 % [facility] CNOVon 03-02-2023 CNOV Office Visit (MARIO Clarke) VANDANABONNIE Morales J ([id number]) 1985 M Date Time Provider Department 03/02/23 3:30 PM ADEOLA BRONSON During your visit today, we recorded the following information about you: Pulse Blood pressure Weight Height 58/minute 131/80 88.5 kg 1.702 m Adeola Bronson, PUMP STATION OPERATOR.WAIST CUTTER 04/12/2023 12:28 PM Addendum Subjective Bonnie Quinteros is a 37 year old male who presents for diabetes management. Timeline: Diagnosed with type 1 diabetes 10/2019. Established care with endocrinology 11/2019. Current medications for diabetes: Humalog via Tandem insulin pump Current pump settings: Basal rates: 0000 - 06 1.2 599 - 1999 0.8 1999 - 1.0 Active insulin time: 5 hours Carbohydrate ratio: 0000 - 0600 12 0600 - 2000 9.5 1999 - 9.5 Insulin sensitivity/correction factor: 0000 - 0600 65 0600 - 1400 71 1400 - 0000 71 Blood glucose target: 110 Today's visit: Patient presents for management of his diabetes. Pump is downloaded today: TIR: 77% High: 15% Low: 7% Patterns show hypoglycemia in the afternoon during and after exercise. He is following with reproductive endocrinology. He has no complaints or concerns today. 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 Diet: Typical breakfast: Sausage, bread, and eggs. Typical lunch: Salad with raisins and chicken. Typical dinner: Variable. Sweet potatoes, vegetables, chicken. Proficient in counting carbs. Exercise/activity: Walking. Denies frequent periods of hypoglycemia. Patient verbalized understanding of the signs and symptoms of hypoglycemia and its treatment options. Important Diabetes Lab History: HBA1C: 01/2020 6.4%. 06/2020 7.1%. 10/2020 6.9%. 04/2021 8.0%. 07/2021 7.7%. 11/2021 6.9%. 02/2022 6.6%. 05/2022 6.4%. 08/2022 6.6%. 11/2022 7.2%. 02/2023 6.6%. Thyroid Function Testin01/2021 TSH 1.390, T4 1.1. 05/2022 TSH 1.190, T4 1.1. 04/2023 TSH 2.00, T4 0.96. Renal Function Testin10/2019 creatinine 0.7, GFR >60. 01/2021 creatinine 0.89, GFR >60. 05/2022 creatinine 0.88, GFR >60. 04/2023 creatinine 0.82, GFR >60. Urine for Microalbumin: 01/2021 orders placed. 05/2022 orders placed. 04/2023 Microalbumin : creatinine ratio 10. Lipid Profile: 01/2021 Cholesterol 178, triglycerides 37, HDL 79, LDL 191, VLDL 7. 05/2022 Cholesterol 189, triglycerides 37, HDL 86, LDL 96, VLDL 7. 04/2023 Cholesterol 204, triglycerides 53, HDL 88, LDL 105, VLDL 11. Liver Profile: 10/2019 AST 97, ALT 10, alk phos 97, total bili 0.4. 01/2021 AST 14, ALT 15, alk phos 56, total bili 0.4. 05/2022 AST 27, ALT 23, alk phos 84, total bili 0.5. 04/2023 AST 49, ALT 36, alk phos 86, total bili 0.5. C-peptide: 02/2020: 1.19 (0.8-3.9), glucose 108. 01/2021 0.3, glucose 122. Glutamic acid decarboxylase AB: 02/2020: POSITIVE >250 (<5.1). 01/2021 POSITIVE >120. Insulin antibody: 02/2020 <0.4 (<0.4). Important Diabetes Maintenance: Eye Exam: 10/19/2020 see scanned documents. 10/12/2021 see scanned documents. 10/14/2022 see scanned docs. Educated on importance of annual dilated eye exams. Instructed to fax me results. Diabetes Pertinent negatives for hypoglycemia include no dizziness, headaches, nervousness/anxiousnes s, seizures or tremors. Pertinent negatives for diabetes include no blurred vision, no chest pain, no polydipsia, no weakness and no weight loss. Review of Systems Constitutional: Negative for chills, fever, malaise/fatigue and weight loss. HENT: Negative for ear pain, hearing loss, nosebleeds and sore throat. Eyes: Negative for blurred vision and double vision. Respiratory: Negative for cough, hemoptysis, sputum production, shortness of breath and wheezing. Cardiovascular: Negative for chest pain, palpitations and leg swelling. Gastrointestinal: Negative for abdominal pain, blood in stool, constipation, diarrhea, heartburn, melena, nausea and vomiting. Genitourinary: Negative for dysuria, flank pain, frequency, hematuria and urgency. Musculoskeletal: Negative for back pain, falls, joint pain, myalgias and neck pain. Skin: Negative for itching and rash. Neurological: Negative for dizziness, tingling, tremors, sensory change, speech change, focal weakness, seizures, loss of consciousness, weakness and headaches. Endo/Heme/Allergies: Negative for environmental allergies and polydipsia. Does not bruise/bleed easily. Psychiatric/Behavioral : Negative for depression, hallucinations, memory loss, substance abuse and suicidal ideas. The patient is not nervous/anxious and does not have insomnia. PAST MEDICAL HISTORY Diagnosis Date Depression Diabetes mellitus type 1 (HCC) 10/17/2019 [place]COE (obstructive sleep apnea) PAST SURGICAL HISTORY Procedure Laterality Date PAST SURGICAL HISTORY OF wisdom teeth TESTICULAR BIOPSY PREP 02/2022 FAMILY HISTORY Problem Relation Age of Onset Thyroid Mother Social History Tobacco (more content not included)... Normal [facility] HEMOGLOBIN A1C (POC)on 03-02 HbA1c (Bld) [Mass fraction] 6.6 % Abnormal 4.2 - 5.6 % [facility] HEMOGLOBIN A1C (POC)on 11-21 HbA1c (Bld) [Mass fraction] 7.2 % Abnormal 4.2 - 5.6 % [facility] Comprehensive metabolic 2000 panelon 05-28-2022 Albumin [Mass/Vol] 4.0 g/dL Normal 3.9-4.9 [facility] Comment on above: Order Comment: Speci men Type: BLOOD SPECIMEN Ordering Facility: [facility] Address: [address] [address] Performed By: #### 2 4323-8, 3016-3, 3024-7, 73417-7 #### [facility] CLIA [id number] [address] [place] [address] [place] ALP [Catalytic activity/Vol] 84 U/L Normal 38-113 [facility] Comment on above: Order Comment: Speci men Type: BLOOD SPECIMEN Order[facility] Facility: [facility] Address: [address] [address] Performed By: #### 2 4323-8, 3016-3, 3024-7, 55684-7 #### [facility] CLIA [id number] [address] [place] [address] [place] ALT [Catalytic activity/Vol] 23 U/L Normal 10-54 [facility] Comment on above: Order Comment: Speci men Type: BLOOD SPECIMEN Ordering Facility: [facility] Address: [address] [id number] Performed By: #### 2 4323-8, 3016-3, 3024-7, 60288-8 #### [facility] CLIA [id number] [address] [place] [address] [place] Anion gap [Moles/Vol] 11 mmol/L Normal 9-18 [facility] Comment on above: Order Comment: Speci men Type: BLOOD SPECIMEN Ordering Facility: [facility] Address: [address] Performed By: #### 2 4323-8, 6-3, 3023-7, 01215-1 #### [facility] CLIA [id number] [address] [place] [address] [place] AST [Catalytic activity/Vol] 27 U/L Normal 14-40 [facility] Comment on above: Order Comment: Speci men Type: BLOOD SPECIMEN Ordering Facility: [facility] Address: [address] Performed By: #### 2 4323-8, 6-3, 3023-7, 72987-2 #### [facility] CLIA [id number] [address] [place] [address] [place] Bilirubin [Mass/Vol] 0.5 mg/dL Normal 0.2-1.3 [facility] Comment on above: Order Comment: Speci men Type: BLOOD SPECIMEN Ordering Facility: [facility] Address: [address] Performed By: #### 2 4323-8, 6-3, 7, 35136-4 #### [facility] CLIA [id number] [address] [place] [address] [place] Calcium [Mass/Vol] 9.9 mg/dL Normal 8.5-10.2 [facility] Comment on above: Order Comment: Speci men Type: BLOOD SPECIMEN Ordering Facility: [facility] Address: [address] [id number] Performed By: #### 2 4323-8, 6-3, 3023-7, 95793-5 #### [facility] CLIA [id number] [address] [place], [place] [id number] [place] Chloride [Moles/Vol] 104 mmol/L Normal 97-105 [facility] Comment on above: Order Comment: Speci men Type: BLOOD SPECIMEN Ordering Facility: [facility] Address: [address] [id number] Performed By: #### 2 4323-8, 3016-3, 3024-7, 74874-0 #### [facility] CLIA [id number] [address] [place] [address] [place] CO2 [Moles/Vol] 25 mmol/L Normal 22-30 [facility] Comment on above: Order Comment: Speci men Type: BLOOD SPECIMEN Ordering Facility: [facility] Address: [address] [phone] Performed By: #### 2 4323-8, 3016-3, 4-7, 21448-2 #### [facility] CLIA [id number] [address] [place] [address] [place] Creatinine [Mass/Vol] 0.88 mg/dL Normal 0.73-1.22 [facility] Comment on above: Order Comment: Speci men Type: BLOOD SPECIMEN Ordering Facility: [facility] Address: [address] [place] [address] Performed By: #### 2 4323-8, 3016-3, 3023-7, 52214-8 #### [facility] CLIA [id number] [address] [place] [address] [place] ESTIMATED GLOMERULAR FILTRATION RATE 113 mL/min/1.73m??? Normal >=60 [facility] Comment on above: Order Comment: Speci men Type: BLOOD SPECIMEN Ordering Facility: [facility] Address: [address] [place], [place] [address] Result Comment: Deepthi mated Glomerular Filtration Rate (eGFR) is calculated using the 2020 CKD-EPI creatinine equation. This equation utilizes serum creatinine, sex, and age as parameters. The creatinine assay has traceable calibration to isotope dilution-mass spectrometry. Refer to KDIGO guidelines for clinical interpretation. In patients with unstable renal function, e.g. those with acute kidney injury, the eGFR may not accurately reflect actual GFR. Performed By: #### 2 4323-8, 3016-3, 4-7, 63920-5 #### [facility] CLIA [id number] [address] [place] [address] [place] Glucose [Mass/Vol] 139 mg/dL High 74-99 [facility] Comment on above: Order Comment: John an Type: BLOOD SPECIMEN Ordering Facility: [facility] Address: [address] [phone] Result Comment: The [place] Diabetes Association (ADA) provides guidance for cutoff values for fasting glucose and random glucose. The ADA defines fasting as no caloric intake for at least 8 hours. Fasting plasma glucose results between 100 to 125 mg/dL indicate increased risk for diabetes (prediabetes). Fasting plasma glucose results greater than or equal to 126 mg/dL meet the criteria for diagnosis of diabetes. In the absence of unequivocal hyperglycemia, results should be confirmed by repeat testing. In a patient with classic symptoms of hyperglycemia or hyperglycemic crisis, random plasma glucose results greater than or equal to 200 mg/dL meet the criteria for diagnosis of diabetes. Reference: Standards of Medical Care in Diabetes 2016, [place] Diabetes Association. Diabetes Care. 2016.39(Suppl 1). Performed By: #### 2 4323-8, 3016-3, 3023-7, 11582-9 #### [facility] CLIA [id number] [address] [address] [place] Potassium [Moles/Vol] 4.6 mmol/L Normal 3.7-5.1 [facility] Comment on above: Order Comment: John an Type: BLOOD SPECIMEN Ordering Facility: [facility] Address: [address] [place] [address] Performed By: #### 2 4323-8, 6-3, 3023-7, 91518-6 #### [facility] CLIA [id number] [address] [address] [place] Protein [Mass/Vol] 6.8 g/dL Normal 6.3-8.0 [facility] Comment on above: Order Comment: Speci men Type: BLOOD SPECIMEN Ordering Facility: [facility] Address: [address] [place] [address] Performed By: #### 2 4323-8, 3016-3, 3024-7, 08518-1 #### [facility] CLIA [id number] [address] [address] [place] Sodium [Moles/Vol] 140 mmol/L Normal 136-144 [facility] Comment on above: Order Comment: Speci men Type: BLOOD SPECIMEN Ordering Facility: [facility] Address: [address] [place] [address] Performed By: #### 2 4323-8, 6-3, 3023-7, 59876-7 #### [facility] CLIA [id number] [address] [address] [place] Urea nitrogen [Mass/Vol] 18 mg/dL Normal 9-24 [facility] Comment on above: Order Comment: Speci men Type: BLOOD SPECIMEN Ordering Facility: [facility] Address: [address] [place] [address] Performed By: #### 2 4323-8, 6-3, 7, 76760-7 #### [facility] CLIA [id number] [address] [id number] [place] Lipid 1996 panelon 3 Cholesterol [Mass/Vol] 189 mg/dL Normal <200 [facility] Comment on above: Order Comment: Speci men Type: BLOOD SPECIMEN Ordering Facility: [facility] Address: [address] [place] [address] Result Comment: <200 mg/dL, Desirable 200-239 mg/dL, Borderline high >239 mg/dL, High Performed By: #### 2 4323-8, 3016-3, 302-7, 12107-9 #### [facility] CLIA [id number] [address] [address] [place] [facility] Cholesterol in HDL [Mass/Vol] 86 mg/dL Normal >39 [facility] Comment on above: Order Comment: John an Type: BLOOD SPECIMEN Ordering Facility: [facility] Address: [address] [phone] Result Comment: 40-5 9 mg/dL, Acceptable >59 mg/dL, High: Negative risk factor for coronary heart disease <40 mg/dL, Low: Positive risk factor for coronary heart disease Performed By: #### 2 4323-8, 3016-3, 3024-7, 30763-8 #### [facility] CLIA [id number] [address] [facility] [address] Cholesterol in LDL [Mass/Vol] 96 mg/dL Normal <100 [facility] Comment on above: Order Comment: John an Type: BLOOD SPECIMEN Ordering Facility: [facility] Address: [address] [place], [place] [phone] Result Comment: <100 mg/dL, Optimal 100-129 mg/dL, Near optimal/above optimal 130-159 mg/dL, Borderline high 160-189 mg/dL, High >189 mg/dL, Very high Secondary prevention optimal LDL Cholesterol levels are recommended to be < 70 mg/dL Performed By: #### 2 4323-8, 3016-3, 3024-7, 28280-9 #### [facility] CLIA [id number] [address] [facility] [address] [place] Cholesterol in LDL/Cholesterol in HDL [Mass ratio] 1.12 {ratio} Normal <2.54 [facility] Comment on above: Order Comment: John an Type: BLOOD SPECIMEN Ordering Facility: [facility] Address: [address] [place] [address] Result Comment: Cynthia still: 1. National Cholesterol Education Program ATP III Guideline At-A-Glance Quick Desk Reference: National Heart, Lung, and Blood [place]. National Institutes of Health. 2001: NIH Publication No. 01-3305. 2. An International Atherosclerosis Society position paper: global recommendations for the management of dyslipidemia: executive summary, Atherosclerosis. 2014: 232(2):410-413. Performed By: #### 2 4323-8, 3016-3, 3024-7, 68479-0 #### [facility] CLIA [id number] [address] [place] [address] [place] Cholesterol in VLDL [Mass/Vol] 7 mg/dL Normal <30 [facility] Comment on above: Order Comment: Speci men Type: BLOOD SPECIMEN Ordering Facility: [facility] Address: [address] [place] [address] Performed By: #### 2 4323-8, 3016-3, 3024-7, 71100-5 #### [facility] CLIA [id number] [address] [place] [address] [place] Cholesterol non HDL [Mass/Vol] 103 mg/dL Normal <130 [facility] Comment on above: Order Comment: Speci men Type: BLOOD SPECIMEN Ordering Facility: [facility] Address: [address] [place] [address] Result Comment: <130 mg/dL, Optimal 130-159 mg/dL, Near optimal/above optimal 160-189 mg/dL, Borderline high 190-219 mg/dL, High >219 mg/dL, Very high Secondary prevention optimal non HDL Cholesterol levels are recommended to be <100 mg/dL Performed By: #### 2 4323-8, 3016-3, 3024-7, 90392-9 #### [facility] CLIA [id number] [address] [place] [address] [place] Cholesterol.total/C holesterol in HDL [Mass ratio] 2.20 {ratio} Normal <5.10 [facility] Comment on above: Order Comment: Rohani men Type: BLOOD SPECIMEN Ordering Facility: [facility] Address: [address] [place] [address] Performed By: #### 2 4323-8, 3016-3, 3024-7, 10760-8 #### [facility] CLIA [id number] [address] [place] [address] [place] FASTING TIME 12 hrs Normal [facility] Comment on above: Order Comment: Speci men Type: BLOOD SPECIMEN Ordering Facility: [facility] Address: [address] [address] Performed By: #### 2 4323-8, 3016-3, 3024-7, 68520-9 #### [facility] CLIA [id number] [address] [place] [address] [place] Triglyceride [Mass/Vol] 37 mg/dL Normal <150 [facility] Comment on above: Order Comment: Speci men Type: BLOOD SPECIMEN Ordering Facility: [facility] Address: [place] [address] Result Comment: <150 mg/dL, Normal 150-199 mg/dL, Borderline high 200-499 mg/dL, High >499 mg/dL, Very high Performed By: #### 2 4323-8, 3016-3, 3024-7, 08400-0 #### [facility] CLIA [id number] [facility] [place] [address] [place] T4 Free SerPl-mCncon 023 Free T4 [Mass/Vol] 1.1 ng/dL Normal 0.9-1.7 [facility] Comment on above: Order Comment: Speci men Type: BLOOD SPECIMEN Ordering Facility: [facility] Address: [place] [address] Performed By: #### 2 4323-8, 3016-3, 3024-7, 76903-2 #### [facility] CLIA [id number] [address] [place] [address] [place] TSH SerPl-aCncon 05-28-2022 TSH Qn 1.190 m[IU]/L Normal 0.270-4.200 [facility] Comment on above: Order Comment: Speci men Type: BLOOD SPECIMEN Ordering Facility: [facility] Address: [place] [address] Performed By: #### 2 4323-8, 3016-3, 3024-7, 21145-9 #### [facility] CLIA [id number] [address] [place] [address] [place] HEMOGLOBIN A1C (POC)on 05-23 HbA1c (Bld) [Mass fraction] 6.4 % 4.2 - 5.6 % [facility] Rolando 02-21-2022 CNPN Telephone (UROLMD) BONNIE QUINTEROS ([id number]) 1985 M Date Time Provider Department 02/21/22 BIBIANA MELGAR During your visit today, we recorded the following information about you: Bibiana Melgar MD 02/21/2022 11:59 AM Signed S/p R testis biopsy Path - SCO Plan: Pt will discuss with Discussed very low likelihood of finding viable sperm during mTESE Bibiana Melgar MD Allergies As of Date: 02/21/2022 (No Known Allergies) Date Reviewed: 02/17/2022 Reviewed by: Shoshana Yates Ma - Fully Assessed Reason for Visit: Results [95] Prescriptions as of 02/21/2022 - ibuprofen (MOTRIN) 800 mg tablet Take 1 tablet by mouth every 8 hours as needed for pain. - insulin lispro (HUMALOG U-100 INSULIN) 100 unit/mL injection FOR USE IN INSULIN PUMP, USING ABOUT 75 UNITS PER DAY - Blood-Glucose Transmitter (DEXCOM G6 TRANSMITTER) verna 1 Each every 3 months. - Blood-Glucose Sensor (DEXCOM G6 SENSOR) evrna 1 Each every 10 days. - ACCU-CHEK FASTCLIX LANCET DRUM lancets CHECK GLUCOSE FOUR TIMES A DAY - ACCU-CHEK GUIDE TEST STRIPS test strip TEST 4 TIMES DAILY - BD INSULIN SYRINGE ULTRA-FINE 0.3 mL 31 gauge x 16 USE DAILY NEEDED FOR PUMP FAILURE - glucagon (GLUCAGON EMERGENCY KIT, HUMAN,) 1 mg injection Inject 1 mg subcutaneously one time only for 1 dose. - alcohol swabs USE TO TEST BLOOD GLUCOSE 4 TIMES A DAY - ACCU-CHEK GUIDE ME GLUCOSE MTR CHECK GLUCOSE FOUR TIMES A DAY, BEFORE MEALS AND AT BEDTIME - FLUoxetine HCl 20 mg tablet Take 20 mg by mouth once daily. - lamoTRIgine (LAMICTAL) 200 mg tablet Take 200 mg by mouth once daily. 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] 02/15/2022 Encounter Status:Closed by BIBIANA MELGAR on 02/21/22 Normal [facility] HEMOGLOBIN A1C (POC)on 02-17 HbA1c (Bld) [Mass fraction] 6.6 % Abnormal 4.2 - 5.6 % [facility] HEMOGLOBIN A1C (POC)on 11-09 HbA1c (Bld) [Mass fraction] 6.9 % Abnormal 4.2 - 5.6 % [facility] CNPNon 10-05-2021 EVONN Telephone (REIBD) BONNIE QUINTEROS ([id number]) 1985 M Date Time Provider Department 10/05/21 SOREN MARTELL During your visit today, we recorded the following information about you: Nata [facility] 10/05/2021 4:19 PM Signed Please order semen analysis order for patient, order required. Saundra Rivero APRN.[facility] 10/06/2021 2:34 PM Addendum spoke to patient, IDDM with retrograde ejaculation and azospermia on sperm counts at [facility] I do not see any labs on SA's in epic or scanned. patient said Dr. Fernandez was plannng lili Soto, ? fresh patient said his tolld him to needs SA. Plan- patient notified that I am waiting to hear from Dr. fernandez, if SA and retrograde urine is needed or not, if needed would it help to be on N B[place]arn before collecting? advised patient that I ira let patient know what Dr. Fernandez advises. Saundra Rivero APRN.CNP October 06, 2021 10:29 AM NOTE; couple needs to complete their Myriad testing for genetic carrier status, slaiva ks were sent according to Helveta protal. ira have nurse Dolores check. Saundra Rivero APRN.CNP October 06, 2021 10:42 AM message from MD Saundra Espitia APRN.[employer]; MD Frederick Garcia, This patient had all his semen testsing and REUA at [facility]. He was azoo on both his SA and post ejac UA. Most recent one is scanned in 02/16/2021. I do not expect any sperm even if he repeat it. Pt should schedule follow up with me if they are wanting to move forward with micro tese. I gave them the financial counselor info last visit as well. Does not look like they reached out to them either. THanks ? [facility], sent message back to Dr. Hung to make him aware of getting thorugh has been difficult, he can send me information for patient or have hsi scheduelrs get him appt and alos talk with financials for Tese. couple needs to do their Myriad testing, saliva kit was sent 09-13-21. can hav Jaja, , call to speak to the IVf nurse working with them, Dolores. Saundra Rivero APRN.CNP October 06, 2021 1:16 PM patient notified that Dr[address] Melgar office ira reach out to get him to review plans.etc for m TESE.''make certain to call them back if misses a call. Saundra Rivero APRN.CNP October 06, 2021 2:33 PM Allergies As of Date: 10/05/2021 (No Known Allergies) Date Reviewed: 07/12/2021 Reviewed by: Hernando Laws MA - Fully Assessed Reason for Visit: semen analysis for ivf/order required [Other] updated message from Dr. melgar [Other] Primary Visit Diagnosis:Procreative management [Z31.9] Prescriptions as of 10/06/2021 - Blood-Glucose Transmitter (DEXCOM G6 TRANSMITTER) verna 1 Each every 3 months. - Blood-Glucose Sensor (DEXCOM G6 SENSOR) verna 1 Each every 10 days. - insulin lispro (HUMALOG U-100 INSULIN) 100 unit/mL injection FOR USE IN INSULIN PUMP, USING ABOUT 75 UNITS PER DAY - ACCU-CHEK FASTCLIX LANCET DRUM lancets CHECK GLUCOSE FOUR TIMES A DAY - ACCU-CHEK GUIDE TEST STRIPS test strip TEST 4 TIMES DAILY - BD INSULIN SYRINGE ULTRA-FINE 0.3 mL 31 gauge x 5/16 USE DAILY NEEDED FOR PUMP FAILURE - clomiPHENe (SEROPHENE) 50 mg tablet TAKE 1 CAPSULE BY MOUTH EVERY MONDAY,MONDAY, Y. - BD INSULIN SYRINGE 1 mL 29 gauge x 1/2 USE 1 SYRINGE DAILY - glucagon (GLUCAGON EMERGENCY KIT, HUMAN,) 1 mg injection Inject 1 mg subcutaneously one time only for 1 dose. - lithium carbonate (ESKALITH) 150 mg capsule Take 150 mg by mouth twice daily. - Insulin Syringe-Needle U-100 (INSULIN SYRINGE) 0.5 mL 29 gauge x 1/2 1 Each once daily. - LANTUS SOLOSTAR U-100 INSULIN 100 unit/mL (3 mL) Inject 20 Units subcutaneously daily at bedtime. - BD INSULIN PEN NEEDLE UF 31 gauge x 5/16 Inject 1 Each subcutaneously four times daily. - alcohol swabs USE TO TEST BLOOD GLUCOSE 4 TIMES A DAY - ACCU-CHEK GUIDE ME GLUCOSE MTR CHECK GLUCOSE FOUR TIMES A DAY, BEFORE MEALS AND AT BEDTIME - FLUoxetine HCl 20 mg tablet Take 20 mg by mouth once daily. - lamoTRIgine (LAMICTAL) 200 mg tablet Take 200 mg by mouth once daily. Problem List As Of Date 10/05/2021 Noted Resolved Azoospermia [N46.01] 11/10/2018 Type 1 diabetes mellitus with hyperglycemia, wi*12/06/2019 High risk medication use - insulin [Z79.899] 01/30/2020 Hypoglycemia due to type 1 diabetes mellitus (H*01/30/2020 Encounter Status:Closed by SAUNDRA RIVERO on 10/06/21 Normal [facility] HEMOGLOBIN A1C (POC)on 07-12 HbA1c (Bld) [Mass fraction] 7.7 % Abnormal 4.2 - 5.6 % [facility] Office Visit (Urology)on Follow-up visit Patient Discussion/Summary 35yo M with nonobstructive azoospermia, genetics wnl. Here for 2nd opinion -We discussed micro-TESE in detail, including the risks, benefits, and alternatives to this procedure. The patient understands that sperm retrieval is not guaranteed, and that the amount of sperm found will likely be utilized for assisted reproductive technology, specifically IVF. -all questions answered pt will likely proceed with Dr. Melgar for fresh/combined microtese Chief Complaint An interactive audio and video telecommunication system which permits real time communications between the patient (at the originating site) and provider (at the distant site) was utilized to provide this telehealth service. Verbal consent was requested and obtained from BONNIE QUINTEROS on this date, 04/19/2021 03:00 PM , for a telehealth visit. infertility History of Present [age]co71 year old male referred to me by Dr. Calloway for infertility name: Jaja Quinteros Partner/ age: 36 Attempting for : 18 months Previous pregnancies for either partner: none seeing Dr. Martell (AMRIK) at [facility] Seeing Dr. Melgar at [facility] Previous Semen analysis / Labs: was on clomipehene T 482 to 822 FSH 38 YCM negative karyotype normal Scrotal US: Testicles atrophic PREVIOUS RISK FACTORS History of testicular exposure to chemicals, radiation, or toxins: None History of high fever, epididymitis, orchitis, prostatitis, sexually transmitted diseases, or trauma to the testicles: epididymitis in college History of a varicocele, testicular torsion, cryptorchidism, postpubertile mumps or a family history of infertility: None Problems with erections or ejaculation: yes when on psych medications Smoker? Previous Testosterone or anabolic steroid Use: none PRIOR Assisted Reproductive Technology: None Active Problems Problems Depression (311) (F32.A) Headache (784.0) (R51.9) ROSOCE (obstructive sleep apnea) (327.23) (G47.33) Sleep disturbances (780.50) (G47.9) Surgical History Problems History of Oral Surgery Family History Multiple Family Members Family history of liver disease (V18.59) (Z83.79) Social History Problems Former smoker (V15.82) (Z87.891) Sleep disturbances (780.50) (G47.9) Allergies Medication No Known Drug Allergies Recorded By: Clemencia Feldman; 01/01/2014 3:58:37 PM Current Meds Medication NameInstruction Citalopram Hydrobromide 20 MG Oral Tablettake 1/2 tablet nightly for 10 nights then increase to one pill nightly Physical Exam CONSTITUTIONAL: No acute distress HEAD: Normocephalic and atraumatic CHEST / RESPIRATORY no excess work of breathing, no respiratory distress, ABDOMEN / GASTROINTESTINAL: Abdomen nondistended PSYCH: Alert and cooperative; Signatures Electronically signed by : Ac Haywood MD; Apr 19 2021 3:21PM EST (Author) Normal Touchworks Otheron 02-15-2020 APOE gene alleles e2 and e3 and e4 Molgen Nom (Bld/Tiss) <5.4 <5.4 U/mL [facility] MAGGIE-65 AB >250 High <5 IU/mL [facility] Insulin Antibody <0.4 <0.4 U/mL [facility] Metabolic Panelon 02-11-2020 Glucose [Mass/Vol] 108 mg/dL High 65 - 99 mg/dL [facility] 02-11-2020 Gamma glutamyl transferase [Catalytic activity/Vol] 16 U/L 3 - 90 U/L [facility] 02-10-2020 C-Peptide 1.19 ng/mL 0.80 - 3.85 ng/mL [facility] LITH 03-24-2017 Akw[place]ne Level <0.20 Low 0.40-1.30 Jennifer vic [facility] ([place]) Comment on above: Result Comment: Lith iu Reference Ranges:Therapeutic range: 0.4 - 1.3 mEq/LOverlap Region: 1.2 - 1.5Potentially Toxic: greater than 1.5 Performed By: #### C RE, GFR, TSH ####[address] [place], [place] [address]#### LITH ####[facility] [place] [address] .GFRon 03-23-2017 eGFR (non-black) mL/min/{1.73_m2} Normal [facility] ([place]) Comment on above: Result Comment: GFR Population mean for , Non- Americans Ages 20-29 = 116 mL/min/1.73 sq.m. Ages 30-39 = 107 mL/min/1.73 sq.m. Ages 40-49 = 99 mL/min/1.73 sq.m. Ages 50-59 = 93 mL/min/1.73 sq.m. Ages 60-69 = 85 mL/min/1.73 sq.m. Ages 70+ = 75 mL/min/1.73 sq.m.Chronic Kidney Disease: Less than 60 mL/min/1.73 square metersEnd Stage Renal Disease: Less than 15 mL/min/1.73 square meters Performed By: #### C RE, GFR, TSH ####[address] [place], [place] [address]#### LITH ####[facility] [place] [address] eGFR (non-black) 103 ml/min/1.73sqm Normal [facility] ([place]) Comment on above: Result Comment: GFR Population mean for , Non- Americans Ages 20-29 = 116 mL/min/1.73 sq.m. Ages 30-39 = 107 mL/min/1.73 sq.m. Ages 40-49 = 99 mL/min/1.73 sq.m. Ages 50-59 = 93 mL/min/1.73 sq.m. Ages 60-69 = 85 mL/min/1.73 sq.m. Ages 70+ = 75 mL/min/1.73 sq.m.Chronic Kidney Disease: Less than 60 mL/min/1.73 square metersEnd Stage Renal Disease: Less than 15 mL/min/1.73 square meters Performed By: #### C RE, GFR, TSH ####[address] [place], [place] [address]#### LITH ####[place] [address] .Urinalysis Microscopic (AO) on 03-23-2017 UA CA Ox Crystal Trace Normal [facility] (MD) Comment on above: Performed By: #### U A, UAMICAO ####[address] [place] [address] UA Squam Epithelial None Seen Normal None Seen [facility] ([place]) Comment on above: Performed By: #### U A, UAMICAO ####[address] [place] [address] UA WBC None Seen Normal None Seen [facility] ([place]) Comment on above: Performed By: #### U A, UAMICAO ####[address] [place] [address] Urine, erythrocytes 0-5 Abnormal None Seen [facility] ([place]) Comment on above: Performed By: #### U A, UAMICAO ####[address] [place] [address] CREon 03-23-2017 Creatinine 1.0 mg/dL Normal 0.6-1.2 [facility] ([place]) Comment on above: Performed By: #### C RE, GFR, TSH ####[address] [place] [address]#### LITH ####[place] [address] TSHon 03-23-2017 Thyroid stimulating hormone (TSH) 1.57 mcIU/mL Normal 0.27-4.20 [facility] ([place]) Comment on above: Performed By: #### C RE, GFR, TSH ####[address] [place] [address]#### LITH ####[place] [address] UAon 03-23-2017 UA Appear CLEAR Normal [facility] ([place]) Comment on above: Performed By: #### U A, UAMICAO ####[address] [place] [address] UA Blood SMALL [facility] ([place]) Comment on above: Performed By: #### U A, UAMICAO ####[address] [place] [address] UA Leuk Est Negative [facility] ([place]) Comment on above: Performed By: #### U A, UAMICAO ####[address] [place] [address] UA Nitrite Negative [facility] ([place]) Comment on above: Performed By: #### U A, UAMICAO ####[address] [place] [address] UA pH 5.0 [facility] ([place]) Comment on above: Performed By: #### U A, UAMICAO ####[address] [place] [address] UA Protein Negative [facility] ([place]) Comment on above: Performed By: #### U A, UAMICAO ####[address] [place] [address] UA Spec Grav >=1.030 Abnormal [facility] (MD) Comment on above: Performed By: #### U A, UAMICAO ####Jennifer [address] [place] [address] UA Specimen Type Not Given [facility] (MD) Comment on above: Performed By: #### U A, UAMICAO ####Jennifer [address] [place] [address] UA Urobilinogen 0.2 E.U./dL [facility] (MD) Comment on above: Performed By: #### U A, UAMICAO ####Jennifer [address] [place] [address] Urine, color YELLOW [facility] (MD) Comment on above: Performed By: #### U A, UAMICAO ####Jennifer [address] [place] [id number] Urine, glucose Negative [facility] (MD) Comment on above: Performed By: #### U A, UAMICAO ####Jennifer [address] [place], [place] [address] Urine, ketones presence Negative Normal [facility] (MD) Comment on above: Performed By: #### U A, UAMICAO ####Jennifer [address] [place], [place] [address] Urine, urobilinogen Negative Normal [facility] (MD) Comment on above: Performed By: #### U A, UAMICAO ####Jennifer [address] [place], [place] [address] .Urinalysis Microscopic (AO) on 02-17-2017 UA CA Ox Crystal Trace Normal [facility] (MD) Comment on above: Performed By: #### U A, UAMICAO ####Jennifer [address] [place], [place] [address] UA Squam Epithelial None Seen Normal None Seen [facility] (MD) Comment on above: Performed By: #### U A, UAMICAO ####Jennifer [address] [place] [address] UA WBC None Seen Normal None Seen [facility] (MD) Comment on above: Performed By: #### U A, UAMICAO ####Jennifer [address] [place] [address] Urine, erythrocytes 0-5 Abnormal None Seen [facility] (MD) Comment on above: Performed By: #### U A, UAMICAO ####Jennifer [address] [place], [place] [address] UAon 02-17-2017 UA Appear CLEAR Normal [facility] (MD) Comment on above: Performed By: #### U A, UAMICAO ####Jennifer [address] [place] [id number] UA Blood SMALL Normal [facility] (MD) Comment on above: Performed By: #### U A, UAMICAO ####Jennifer [address] [place], [place] [address] UA Leuk Est Negative Normal [facility] (MD) Comment on above: Performed By: #### U A, UAMICAO ####Jennifer [address] [place], [place] [address] UA Nitrite Negative [facility] (MD) Comment on above: Performed By: #### U A, UAMICAO ####Jennifer [address] [place], [place] [address] UA pH 5.0 [facility] (MD) Comment on above: Performed By: #### U A, UAMICAO ####Jennifer [address] [place] [address] UA Protein Negative [facility] (MD) Comment on above: Performed By: #### U A, UAMICAO ####Jennifer [address] [place] [address] UA Spec Grav >=1.030 Abnormal [facility] (MD) Comment on above: Performed By: #### U A, UAMICAO ####Jennifer [address] [place] [address] UA Specimen Type Clean Catch [facility] (MD) Comment on above: Performed By: #### U A, UAMICAO ####Jennifer [address] [place] [address] UA Urobilinogen 0.2 E.U./dL [facility] (MD) Comment on above: Performed By: #### U A, UAMICAO ####Jennifer [address] [place] [address] Urine, color YELLOW Normal [facility] (MD) Comment on above: Performed By: #### U A, UAMICAO ####Jennifer [address] [place], [place] [address] Urine, glucose Negative [facility] (MD) Comment on above: Performed By: #### U A, UAMICAO ####Jennifer [address] [place] [id number] Urine, ketones presence 15 mg/dL Abnormal Negative [facility] (MD) Comment on above: Performed By: #### U A, UAMICAO ####Jennifer [address] [place], [place] [address] Urine, urobilinogen Negative Normal [facility] (MD) Comment on above: Performed By: #### U ZABRINA Mixon ####Jennifer [address] [place], [place] [address] Vital Signs Date Time Vital Sign Value Performing Clinician Facility 01-15-2024 08:46-0400 Body temperature 97 [degF] Dominic Tinoco MD Work Phone: [facility] 01-15-2024 08:46-0400 Diastolic blood pressure 76 mm[Hg] Dominic Tinoco MD Work Phone: [facility] 01-15-2024 08:46-0400 Heart rate 53 /min Dominic Tinoco MD Work Phone: [facility] 01-15-2024 08:46-0400 SaO2% (BldA) [Mass fraction] 94 % Dominic Tinoco MD Work Phone: [facility] 01-15-2024 08:46-0400 Systolic blood pressure 120 mm[Hg] Dominic Tinoco MD Work Phone: [facility] 11-23-2023 15:37-0400 Body height 170.2 cm Adeola Bronson APRN.WAIST CUTTER Work Phone: [facility] 11-23-2023 15:37-0400 Body mass index (BMI) [Ratio] 31.04 kg/m2 Adeola Bronson APRN.WAIST CUTTER Work Phone: [facility] 11-23-2023 15:37-0400 Body weight 89.9 kg Adeola Bronson APRN.WAIST CUTTER Work Phone: [facility] 11-23-2023 15:37-0400 Diastolic blood pressure 75 mm[Hg] Adeola Bronson APRN.WAIST CUTTER Work Phone: [facility] 11-23-2023 15:37-0400 Heart rate 83 /min Adeola Bronson APRN.WAIST CUTTER Work Phone: [facility] 11-23-2023 15:37-0400 SaO2% (BldA) [Mass fraction] 95 % Adeola Bronson APRN.WAIST CUTTER Work Phone: [facility] 11-23-2023 15:37-0400 Systolic blood pressure 112 mm[Hg] Adeola Bronson APRN.WAIST CUTTER Work Phone: [facility] 08-29-2023 15:47-0400 Body height 170.2 cm Adeola Bronson APRN.WAIST CUTTER Work Phone: [facility] 08-29-2023 15:47-0400 Body mass index (BMI) [Ratio] 31.01 kg/m2 Adeola Bronson APRN.WAIST CUTTER Work Phone: [facility] 08-29-2023 15:47-0400 Body weight 89.81 kg Adeola Bronson APRN.WAIST CUTTER Work Phone: [facility] 08-29-2023 15:47-0400 Diastolic blood pressure 88 mm[Hg] Adeola Bronson APRN.WAIST CUTTER Work Phone: [facility] 08-29-2023 15:47-0400 Heart rate 54 /min Adeola Bronson APRN.WAIST CUTTER Work Phone: [facility] 08-29-2023 15:47-0400 SaO2% (BldA) [Mass fraction] 99 % Adeola Bronson APRN.WAIST CUTTER Work Phone: [facility] 08-29-2023 15:47-0400 Systolic blood pressure 148 mm[Hg] Adeola Bronson APRN.WAIST CUTTER Work Phone: [facility] 05-31-2023 08:57-0500 Body height 170.2 cm Dominic Calloway MD Work Phone: [facility] 05-31-2023 08:57-0500 Body mass index (BMI) [Ratio] 30.7 kg/m2 Dominic Calloway MD Work Phone: [facility] 05-31-2023 08:57-0500 Body temperature 97.9 [degF] Dominic Calloway MD Work Phone: [facility] 05-31-2023 08:57-0500 Body weight 88.91 kg Dominic Calloway MD Work Phone: [facility] 05-31-2023 08:57-0500 Diastolic blood pressure 78 mm[Hg] Dominic Calloway MD Work Phone: [facility] 05-31-2023 08:57-0500 Heart rate 76 /min Dominic Calloway MD Work Phone: [facility] 05-31-2023 08:57-0500 Systolic blood pressure 116 mm[Hg] Dominic Calloway MD Work Phone: [facility] 05-25-2023 14:56-0500 Body height 170.2 cm Adeola Bronson APRN.WAIST CUTTER Work Phone: [facility] 05-25-2023 14:56-0500 Body weight 88.45 kg Adeola Bronson APRN.WAIST CUTTER Work Phone: [facility] 05-25-2023 14:56-0500 Diastolic blood pressure 74 mm[Hg] Adeola Bronson APRN.WAIST CUTTER Work Phone: [facility] 05-25-2023 14:56-0500 Heart rate 55 /min Adeola Bronson APRN.WAIST CUTTER Work Phone: [facility] 05-25-2023 14:56-0500 SaO2% (BldA) [Mass fraction] 96 % Adeola Bronson APRN.WAIST CUTTER Work Phone: [facility] 05-25-2023 14:56-0500 Systolic blood pressure 121 mm[Hg] Adeola Bronson APRN.WAIST CUTTER Work Phone: [facility] 03-02-2023 15:36-0500 Body height 170.2 cm Adeola Bronson APRN.WAIST CUTTER Work Phone: [facility] 03-02-2023 15:36-0500 Body weight 88.54 kg Adeola Bronson APRN.WAIST CUTTER Work Phone: [facility] 03-02-2023 15:36-0500 Diastolic blood pressure 80 mm[Hg] Adeola Bronson APRN.WAIST CUTTER Work Phone: [facility] 03-02-2023 15:36-0500 Heart rate 58 /min Adeola Bronson APRN.WAIST CUTTER Work Phone: [facility] 03-02-2023 15:36-0500 SaO2% (BldA) [Mass fraction] 98 % Adeola Bronson APRN.WAIST CUTTER Work Phone: [facility] 03-02-2023 15:36-0500 Systolic blood pressure 131 mm[Hg] Adeola Bronson APRN.WAIST CUTTER Work Phone: [facility] 11-21-2022 14:54-0400 Body height 170.2 cm Adeola Bronson APRN.WAIST CUTTER Work Phone: [facility] 11-21-2022 14:54-0400 Body weight 87.36 kg Adeola Bronson APRN.WAIST CUTTER Work Phone: [facility] 11-21-2022 14:54-0400 Diastolic blood pressure 72 mm[Hg] Adeola Bronson APRN.WAIST CUTTER Work Phone: [facility] 11-21-2022 14:54-0400 Heart rate 58 /min Adeola Bronson APRN.WAIST CUTTER Work Phone: [facility] 11-21-2022 14:54-0400 SaO2% (BldA) [Mass fraction] 97 % Adeola Bronson APRN.WAIST CUTTER Work Phone: [facility] 11-21-2022 14:54-0400 Systolic blood pressure 112 mm[Hg] Adeola Bronson APRN.WAIST CUTTER Work Phone: [facility] 05-23-2022 14:46-0500 Body height 170.2 cm Adeola Bronson APRN.WAIST CUTTER Work Phone: [facility] 05-23-2022 14:46-0500 Body weight 87.18 kg Adeola Bronson APRN.WAIST CUTTER Work Phone: [facility] 05-23-2022 14:46-0500 Diastolic blood pressure 80 mm[Hg] Adeola Bronson APRN.WAIST CUTTER Work Phone: [facility] 05-23-2022 14:46-0500 Heart rate 58 /min Adeola Bronson APRN.WAIST CUTTER Work Phone: [facility] 05-23-2022 14:46-0500 SaO2% (BldA) [Mass fraction] 97 % Adeola Bronson APRN.WAIST CUTTER Work Phone: [facility] 05-23-2022 14:46-0500 Systolic blood pressure 136 mm[Hg] Adeola Bronson APRN.WAIST CUTTER Work Phone: [facility] 02-17-2022 14:04-0500 Body height 170.2 cm Adeola Bronson APRN.WAIST CUTTER Work Phone: [facility] 02-17-2022 14:04-0500 Body weight 85.55 kg Adeola Bronson APRN.WAIST CUTTER Work Phone: [facility] 02-17-2022 14:04-0500 Diastolic blood pressure 80 mm[Hg] Adeola Bronson APRN.WAIST CUTTER Work Phone: [facility] 02-17-2022 14:04-0500 Heart rate 66 /min Adeola Bronson APRN.WAIST CUTTER Work Phone: [facility] 02-17-2022 14:04-0500 SaO2% (BldA) [Mass fraction] 97 % Adeola Bronson APRN.WAIST CUTTER Work Phone: [facility] 02-17-2022 14:04-0500 Systolic blood pressure 120 mm[Hg] Adeola Bronson APRN.WAIST CUTTER Work Phone: [facility] 02-15-2022 15:24-0500 Diastolic blood pressure 90 mm[Hg] Bibiana Melgar MD Work Phone: [facility] 02-15-2022 15:24-0500 Heart rate 62 /min Bibiana Melgar MD Work Phone: [facility] 02-15-2022 15:24-0500 Respiratory rate 16 /min Bibiana Melgar MD Work Phone: [facility] 02-15-2022 15:24-0500 SaO2% (BldA) [Mass fraction] 97 % Bibiana Melgar MD Work Phone: [facility] 02-15-2022 15:24-0500 Systolic blood pressure 144 mm[Hg] Bibiana Melgar MD Work Phone: [facility] 02-15-2022 14:24-0500 Body temperature 97.5 [degF] Bibiana Melgar MD Work Phone: [facility] 02-08-2022 12:59-0500 Body height 170.2 cm Bibiana Melgar MD Work Phone: [facility] 02-08-2022 12:59-0500 Body weight 87.09 kg Bibiana Melgar MD Work Phone: [facility] 11-09-2021 15:46-0400 Body height 170.2 cm Adeola Bronson APRN.WAIST CUTTER Work Phone: [facility] 11-09-2021 15:46-0400 Body weight 87.27 kg Adeola Bronson APRN.WAIST CUTTER Work Phone: [facility] 11-09-2021 15:46-0400 Diastolic blood pressure 80 mm[Hg] Adeola Bronson APRN.WAIST CUTTER Work Phone: [facility] 11-09-2021 15:46-0400 Heart rate 46 /min Adeola Bronson APRN.WAIST CUTTER Work Phone: [facility] 11-09-2021 15:46-0400 SaO2% (BldA) [Mass fraction] 94 % Adeola Bronson APRN.WAIST CUTTER Work Phone: [facility] 11-09-2021 15:46-0400 Systolic blood pressure 122 mm[Hg] Adeola Bronson APRN.WAIST CUTTER Work Phone: [facility] 07-12-2021 15:57-0400 Body height 170.2 cm Adeola Bronson APRN.WAIST CUTTER Work Phone: [facility] 07-12-2021 15:57-0400 Body weight 89.45 kg Adeola Bronson APRN.WAIST CUTTER Work Phone: [facility] 07-12-2021 15:57-0400 Diastolic blood pressure 79 mm[Hg] Adeola Bronson PUMP STATION OPERATOR.WAIST CUTTER Work Phone: [facility] 07-12-2021 15:57-0400 Heart rate 68 /min Adeola Bronson PUMP STATION OPERATOR.WAIST CUTTER Work Phone: [facility] 07-12-2021 15:57-0400 SaO2% (BldA) [Mass fraction] 96 % Adeola Bronson PUMP STATION OPERATOR.WAIST CUTTER Work Phone: [facility] 07-12-2021 15:57-0400 Systolic blood pressure 121 mm[Hg] Adeola Bronson APRN.WAIST CUTTER Work Phone: [facility] 03-24-2020 15:26-0500 Body weight 88.63 kg [facility] 03-24-2020 15:26-0500 BP Diastolic 86 mm[Hg] Adeola [facility] 03-24-2020 15:26-0500 BP Systolic 122 mm[Hg] Adeola [facility] 03-24-2020 15:26-0500 Height 170.2 cm Adeola [facility] 03-24-2020 15:26-0500 Pulse (Heart Rate) 55 /min [facility] 03-24-2020 15:26-0500 Pulse Oximetry 99 % [facility] 01-30-2020 15:49-0400 Body weight 86.64 [facility] 01-30-2020 15:49-0400 BP Diastolic 70 mm[Hg] Melvin [facility] 01-30-2020 15:49-0400 BP Systolic 102 mm[Hg] Melvin [facility] 01-30-2020 15:49-0400 Height 170.2 cm Melvin [facility] 01-30-2020 15:49-0400 Pulse (Heart Rate) 53 /min Melvin [facility] 01-30-2020 15:49-0400 Pulse Oximetry 97 % Melvin [facility] 11-18-2019 15:50-0400 Body weight 82.1 kg Adeola [facility] 11-18-2019 15:50-0400 BP Diastolic 86 mm[Hg] Adeola [facility] 11-18-2019 15:50-0400 BP Systolic 124 mm[Hg] Adeola [facility] 11-18-2019 15:50-0400 Height 170.2 cm Adeola [facility] 11-18-2019 15:50-0400 Pulse (Heart Rate) 59 /min Adeola [facility] margareth Encounters Encounter Date Encounter Type Care Provider Facility Start: 02-02-2024 ambulatory [facility] S[facility]A MCALLISTER DO~[id number] [facility] Start: 01-29-2024 ambulatory DOMINIC Dillon [facility] Start: 01-24-2024 End: 01-24-2024 ambulatory [facility] Start: 01-24-2024 End: 01-24-2024 Subsequent hospital visit by physician Maria Elena [id number] X-Ray 1 [facility] Comment on above: Pain in left shoulde r Start: 01-15-2024 End: 01-15-2024 ambulatory [facility] Start: 01-15-2024 End: 01-15-2024 Office outpatient visit 25 minutes Dominic Tinoco MD Work Phone: [facility] Comment on above: Chronic left shoulde r pain (Primary Dx) Start: 11-23-2023 End: 11-23-2023 ambulatory ADEOLA BRONSON Facility:[facility] Start: 11-23-2023 End: 11-23-2023 Patient encounter procedure Adeola Bronson APRN.WAIST CUTTER Work Phone: [facility] Comment on above: Type 1 diabetes bernabe itus with hyperglycemia, with long-term current use of insulin (HCC) (Primary Dx); Presence of insulin pump; Insulin pump titration; Class 1 obesity with serious comorbidity and body mass index (BMI) of 30.0 to 30.9 in adult, unspecified obesity type Start: 11-17-2023 Refill Adeola Bronson APRN.WAIST CUTTER Work Phone: [facility] Comment on above: Refill Request (Dexc om G7 Sensor ) Start: 10-06-2023 Telephone encounter Adeola hernandez APRN.WAIST CUTTER Work Phone: [facility] Comment on above: Insurance Authorizat ion (Dexcom G6 Sensor -- APPROVED ) Start: 09-30-2023 End: 09-30-2023 Emergency department patient visit GEORGINA CRAFT Facility:[facility] Start: 08-29-2023 End: 08-29-2023 ambulatory ADEOLA BRONSON Facility:[facility] Start: 08-29-2023 End: 08-29-2023 Patient encounter procedure Adeola Bronson APRN.WAIST CUTTER Work Phone: [facility] Comment on above: Type 1 diabetes bernabe itus with hyperglycemia, with long-term current use of insulin (HCC) (Primary Dx); Presence of insulin pump; Insulin pump titration; Class 1 obesity with serious comorbidity and body mass index (BMI) of 30.0 to 30.9 in adult, unspecified obesity type Start: 08-24-2023 Refill Adeola Bronson APRN.WAIST CUTTER Work Phone: [facility] Comment on above: Refill Request (Lisp ro ) Start: 08-16-2023 End: 08-16-2023 ambulatory [facility] Start: 08-14-2023 Refill Adeola Bronson APRN.WAIST CUTTER Work Phone: [facility] Comment on above: Med Change Request ( humalog) Start: 08-12-2023 Refill Adeola Bronson APRN.WAIST CUTTER Work Phone: [facility] Comment on above: Refill Request (Lisp ro ) Start: 07-03-2023 ambulatory Adeola Bronson APRN.WAIST CUTTER Work Phone: [facility] Comment on above: G7 sensor Start: 05-31-2023 End: 05-31-2023 ambulatory [facility] Start: 05-31-2023 End: 05-31-2023 Encounter for general adult medical examination without abnormal findings [facility] Start: 05-31-2023 End: 05-31-2023 Office outpatient visit 40 minutes Dominic Calloway MD Work Phone: [facility] Comment on above: Encounter for routin e history and physical examination of adult (Primary Dx); Type 2 diabetes mellitus without complication, without long-term current use of insulin ([facility]/HCC); Depression, unspecified depression type; Wellness examination; Prostate cancer screening Start: 05-31-2023 End: 05-31-2023 Patient encounter status Dominic Calloway MD Work Phone: [facility] Work Phone: Start: 05-31-2023 End: 05-31-2023 Physical examination Dominic Calloway MD Work Phone: [facility] Work Phone: Start: 05-25-2023 End: 05-25-2023 Patient encounter procedure Adeola Bronson APRN.WAIST CUTTER Work Phone: [facility] Comment on above: Type 1 diabetes bernabe itus with hyperglycemia, with long-term current use of insulin (HCC) (Primary Dx); Presence of insulin pump; Insulin pump titration Start: 05-25-2023 End: 05-25-2023 ambulatory ADEOLA BRONSON Facility:[facility] Start: 03-02-2023 End: 03-02-2023 ambulatory ADEOLA BRONSON Facility:[facility] Start: 03-02-2023 End: 03-02-2023 Patient encounter procedure Adeola Bronson APRN.WAIST CUTTER Work Phone: [facility] Comment on above: Type 1 diabetes bernabe itus with hyperglycemia, with long-term current use of insulin (HCC) (Primary Dx); Presence of insulin pump; Insulin pump titration Start: 03-01-2023 End: 03-01-2023 ambulatory MD [facility] Start: 11-23-2022 ambulatory MD DOMINIC CALLOWAY Facil [id number] Start: 11-21-2022 End: 11-21-2022 Patient encounter procedure Adeola Bronson APRN.WAIST CUTTER Work Phone: [facility] Comment on above: Type 1 diabetes bernabe itus with hyperglycemia, with long-term current use of insulin (HCC) (Primary Dx); Presence of insulin pump; Insulin pump titration Start: 11-11-2022 ambulatory Adeola Bronson APRN.WAIST CUTTER Work Phone: [facility] Comment on above: blood work Start: 10-12-2022 Refill Adeola Bronson APRN.WAIST CUTTER Work Phone: [facility] Comment on above: Refill Request (Lisp ro ) Start: 09-15-2022 E-mail encounter eduardo m caregiver Adeola Bronson APRN.WAIST CUTTER Work Phone: [facility] Start: 09-15-2022 Patient encounter procedure Adeola Bronson APRN.WAIST CUTTER Work Phone: [facility] Comment on above: Appointment Request (HM) Start: 06-01-2022 Refill Adeola Bronson APRN.WAIST CUTTER Work Phone: [facility] Comment on above: Refill Request Start: 05-31-2022 Telephone encounter Adeola hernandez APRN.WAIST CUTTER Work Phone: [facility] Comment on above: Results (Labs ) Start: 05-28-2022 End: 05-29-2022 ambulatory DOMINIC CALLOWAY Facility:[facility] Start: 05-23-2022 End: 05-23-2022 Patient encounter procedure Adeola Bronson APRN.WAIST CUTTER Work Phone: [facility] Comment on above: Type 1 diabetes bernabe itus with hyperglycemia, with long-term current use of insulin (HCC) (Primary Dx); Presence of insulin pump; Insulin pump titration; Class 1 obesity with serious comorbidity and body mass index (BMI) of 30.0 to 30.9 in adult, unspecified obesity type Start: 05-23-2022 Telephone encounter Adeola hernandez APRN.WAIST CUTTER Work Phone: [facility] Comment on above: Received Outside Med ical Records Start: 05-16-2022 ambulatory MD DOMINIC CALLOWAY Facil [id number] Start: 05-03-2022 Refill Adeola Bronson APRN.WAIST CUTTER Work Phone: [facility] Comment on above: Refill Request (Dexc om G6 Sensor ) Start: 02-21-2022 Telephone encounter Bibiana eid MD Work Phone: [facility] Comment on above: Results Start: 02-17-2022 End: 02-17-2022 Patient encounter procedure Adeola Bronson APRN.WAIST CUTTER Work Phone: [facility] Comment on above: Type 1 diabetes bernabe itus with hyperglycemia, with long-term current use of insulin (HCC) Start: 02-15-2022 End: 02-15-2022 Preprocedural examination done Bibiana Melgar MD Work Phone: [facility] Start: 02-15-2022 End: 02-15-2022 Subsequent hospital visit by physician Bibiana Melgar MD Work Phone: [facility] Comment on above: Atrophic testicle [N 50.0] Start: 02-11-2022 ambulatory Adeola Bronson APRN.WAIST CUTTER Work Phone: [facility] Comment on above: My transmitter Start: 12-22-2021 End: 12-22-2021 ambulatory Bibiana Melgar MD Work Phone: [facility] Comment on above: Atrophic testicle (P rimary Dx); Encounter for fertility testing Start: 12-22-2021 End: 12-22-2021 Telemedicine consultation with patient Bibiana Melgar MD Work Phone: [facility] Start: 11-29-2021 Refill Adeola Bronson APRN.WAIST CUTTER Work Phone: [facility] Comment on above: Refill Request (insu johnny lispro) Start: 11-09-2021 End: 11-09-2021 Patient encounter procedure Adeola Bronson APRN.WAIST CUTTER Work Phone: [facility] Comment on above: Type 1 diabetes bernabe itus with hyperglycemia, with long-term current use of insulin (HCC) (Primary Dx); Presence of insulin pump; Insulin pump titration; Class 1 obesity with serious comorbidity and body mass index (BMI) of 30.0 to 30.9 in adult, unspecified obesity type Start: 11-09-2021 Telephone encounter Adeola hernandez APRN.WAIST CUTTER Work Phone: [facility] Comment on above: Received Outside Med [facility] Records (DM eye exam ) Start: 10-06-2021 Telephone encounter Saundra A Tadeo austin APRN.WAIST CUTTER Work Phone: [facility] Comment on above: Opened In Error Recheck Start: 10-05-2021 Telephone encounter Soren Martell MD Work Phone: [facility] Comment on above: semen analysis for i vf/order required; updated message from Dr. melgar Start: 09-28-2021 End: 09-28-2021 ambulatory DOMINIC CALLOWAY Facility:[facility] Start: 09-06-2021 ambulatory Adeola Bronson APRN.WAIST CUTTER Work Phone: [facility] Comment on above: sensor damage Start: 07-12-2021 End: 07-12-2021 Patient encounter procedure Adeola Bronson APRN.WAIST CUTTER Work Phone: [facility] Comment on above: Presence of insulin pump (Primary Dx); Type 1 diabetes mellitus with hyperglycemia, with long-term current use of insulin (HCC); Insulin pump titration; Class 1 obesity with serious comorbidity and body mass index (BMI) of 31.0 to 31.9 in adult, unspecified obesity type Start: 04-19-2021 Office outpatient ne w 45 minutes Dominic Cartwright Iemma Work Phone: [id number] Work Phone: Start: 05-07-2020 End: 05-07-2020 Patient encounter procedure External Provider [facility] Start: 05-07-2020 Results Only External Provider [facility] Start: 03-24-2020 End: 03-24-2020 Patient encounter procedure Adeola Flores (Template Storage Clerk Garnishment Specialist) Gui Work Phone: [facility] Comment on above: Type 1 diabetes bernabe itus with hyperglycemia, with long-term current use of insulin (HCC) (Primary Dx) Start: 02-18-2020 End: 02-18-2020 Telephone encounter Melvin Kahn Work Phone: [facility] Comment on above: Results (Patient was not on insulin at time of blood draw) Start: 02-17-2020 End: 02-17-2020 Telephone encounter Adeola Bradford Cnp) Gui Work Phone: [facility] Comment on above: Patient Question Start: 02-07-2020 End: 02-07-2020 Patient encounter procedure Melvin Kahn Work Phone: [facility] Start: 02-07-2020 Results Only Melvin Brown carlajacob Work Phone: [facility] Start: 01-30-2020 End: 01-30-2020 Patient encounter procedure Melvin Kahn Work Phone: [facility] Comment on above: Type 1 diabetes bernabe itus with hyperglycemia, with long-term current use of insulin (HCC) (Primary Dx); Hypoglycemia due to type 1 diabetes mellitus (HCC); High risk medication use - insulin Start: 01-30-2020 End: 01-30-2020 Letter encounter Melvin Kahn Work Phone: [facility] Start: 01-30-2020 End: 01-30-2020 Telephone encounter Melvin Kahn Work Phone: [facility] Comment on above: Orders (Freestyle Li breana 2-----SOLARA) Start: 12-06-2019 End: 12-06-2019 Patient encounter procedure Adeola Sainz Work Phone: [facility] Comment on above: Initial Visit / RD D iab Educ Start: 11-27-2019 End: 11-27-2019 Refill Adeola Flores (Template Storage Clerk Evon) Gui Work Phone: [facility] Comment on above: Refill Request (Lanc ets) Start: 11-22-2019 End: 11-22-2019 Patient encounter procedure External Provider [facility] Start: 11-22-2019 Results Only External Provider [facility] Start: 11-18-2019 End: 11-18-2019 Patient encounter procedure Adeola Flores (Template Storage Clerk Evon) Gui Work Phone: [facility] Comment on above: Type 1 diabetes bernabe itus with hyperglycemia, with long-term current use of insulin (HCC) (Primary Dx) Start: 11-18-2019 End: 11-18-2019 Telephone encounter Adeola Flores (Template Storage Clerk Evon) Gui Work Phone: [facility] [place] Comment on above: Referral Request (Di abetes Education) update info Start: 09-18-2017 End: 09-19-2017 Ambulatory BERT PAUL [facility] Start: 03-23-2017 End: 03-28-2017 Ambulatory DOMINIC CALLOWAY Facility:[facility] Start: 03-17-2017 End: 03-22-2017 Ambulatory DOMINIC CALLOWAY [facility] Start: 02-17-2017 End: 02-22-2017 Ambulatory PHY WO ID~[id number] REFERRING Facility:[facility] Start: 02-16-2017 End: 02-17-2017 Ambulatory PHY WO ID~[id number] REFERRING Facility:[facility] Procedures Date Procedure Procedure Detail Performing Clinician Start: 11-23-2023 Hemoglobin A1c/Hemoglobin.total in Blood Adeola Bronson APRN.WAIST CUTTER Work Phone: Start: 08-29-2023 Hemoglobin A1c/Hemoglobin.total in Blood Adeola Bronson APRN.WAIST CUTTER Work Phone: Start: 05-31-2023 EXTRA URINE CHU TUBE J OSEPH IEMMA Start: 05-31-2023 URINALYSIS WITH REFL EX CULTURE AND MICROSCOPIC [facility] Start: 05-25-2023 Hemoglobin A1c/Hemoglobin.total in Blood Adeola Bronson APRN.WAIST CUTTER Work Phone: Start: 03-02-2023 Hemoglobin A1c/Hemoglobin.total in Blood Adeola Bronson APRN.WAIST CUTTER Work Phone: Start: 11-21-2022 Hemoglobin A1c/Hemoglobin.total in Blood Adeola Bronson APRN.WAIST CUTTER Work Phone: Start: 05-23-2022 Hemoglobin A1c/Hemoglobin.total in Blood Adeola Bronson APRN.WAIST CUTTER Work Phone: Start: 02-17-2022 Hemoglobin A1c/Hemoglobin.total in Blood Adeola Bronson PUMP STATION OPERATOR.WAIST CUTTER Work Phone: Start: 11-09-2021 Hemoglobin A1c/Hemoglobin.total in Blood Adeola Bronson PUMP STATION OPERATOR.WAIST CUTTER Work Phone: Start: 07-12-2021 Hemoglobin A1c/Hemoglobin.total in Blood Adeola Bronson PUMP STATION OPERATOR.WAIST CUTTER Work Phone: Start: 05-07-2020 EXTERNAL LAB External P rovider Start: 02-07-2020 C-PEPTIDE BLD Melvin Karoline tt Kahn Work Phone: Start: 02-07-2020 GGT BLD Melvin cartwright Kahn Work Phone: Start: 02-07-2020 GLUCOSE RANDOM BLD Marli alexander Fercho Kahn Work Phone: Start: 02-07-2020 INSULINOMA ASSOCIATE D ANTIBODY 2 Melvin Brantley Kahn Work Phone: Start: 11-22-2019 EXTERNAL LAB External P rovider Start: 09-21-2018 Lipid 1996 panel - S gloria or Plasma Dominic Calloway MD Work Phone: Oral Surgery Dominic Calloway Work Phone: Plan of Treatment Date Care Activity Detail Author Start: 08-02-2033 Zoster Vaccines (1 o f 2) Zoster Vaccines (1 of 2) [facility] Start: 11-23-2032 DTaP/Tdap/Td Vaccine s (3 - Td or Tdap) DTaP/Tdap/Td Vaccines (3 - Td or Tdap) [facility] Start: 11-23-2032 Urine microalbumin profile DTaP,Tdap,Td Vaccine (3 - Td or Tdap) [facility] Start: 06-03-2024 End: 06-03-2024 Patient encounter procedure 06/03/2024 8:00 AM EST Office Visit [facility] [address] [place] [address] Dominic Calloway MD [address] [place] [address] [facility] Start: 06-01-2024 Yearly Adult Physical Yearly Adult P hysical [facility] Start: 05-27-2024 End: 05-27-2024 Patient encounter procedure 05/27/2024 3:30 PM EST Office Visit [facility] [address] [place] [id number] Adeola Bronson APRN.WAIST CUTTER [address] [place] [address] diabetes 3 months follow-up [facility] Comment on above: diabetes 3 months fo llow-up Start: 05-25-2024 Diabetic foot examination Diabetic Foot Exam [facility] Start: 05-25-2024 Hemoglobin A1c measurement HbA1C [facility] Start: 02-29-2024 Hemoglobin A1c measurement HbA1C [facility] Start: 02-27-2024 End: 02-27-2024 Patient encounter procedure 02/27/2024 3:30 PM EST Office Visit [facility] [address] [place] [phone] Adeola Bronson, PUMP STATION OPERATOR.WAIST CUTTER [address] [place] [address] 3 months follow-up [facility] Comment on above: 3 months follow-up Start: 02-23-2024 Hemoglobin A1c measurement Diabetes: Hemoglobin A1C [facility] Start: 12-03-2023 COVID-19 Vaccine ( season) COVID-19 Vaccine ( season) [facility] Start: 12-03-2023 COVID-19 Vaccine ( season) COVID-19 Vaccine ( season) [facility] Start: 12-03-2023 Influenza vaccination [facility] [place] [facility] Start: 11-24-2023 Pneumococcal vaccination [facility] Start: 11-24-2023 Pneumococcal Vaccine : Pediatrics (0 to 5 Years) and At-Risk Patients (6 to 64 Years) (2 of 2 - PCV) Pneumococcal Vaccine: Pediatrics (0 to 5 Years) and At-Risk Patients (6 to 64 Years) (2 of 2 - PCV) [facility] Start: 11-23-2023 End: 11-23-2023 Patient encounter procedure 11/23/2023 3:30 PM EDT Office Visit [facility] [address] [place] [address] Adeola Bronson, PUMP STATION OPERATOR.WAIST CUTTER [address] [place] [address] DIABETES FOLLOW UP [facility] Comment on above: DIABETES FOLLOW UP Start: 11-23-2023 Hemoglobin A1c measurement HbA1C [facility] Start: 10-15-2023 Glaucoma screening Dilated Retinal E xam [facility] Start: 10-15-2023 Hepatitis C antibody , confirmatory test DILATED RETINAL EXAM [facility] Start: 09-22-2023 Lipid panel Lipid Panel [facility] Start: 08-31-2023 Hemoglobin A1c/Hemoglobin.total in Blood HbA1C [facility] Start: 08-29-2023 End: 08-29-2023 Patient encounter procedure [facility] Comment on above: 3 month follow up diabetes Start: 05-31-2023 End: 05-31-2024 CBC panel - Blood by Automated count CBC Lab Routine Wellness examination Expected: 05/31/2023 (Approximate), Expires: 05/31/2024 [facility] Work Phone: Comment on above: Expected: 05/31/2023 (Approximate), Expires: 05/31/2024 Start: 05-31-2023 End: 05-31-2024 Comprehensive metabolic 2000 panel - Serum or Plasma Comprehensive Metabolic Panel Lab Routine Wellness examination Expected: 05/31/2023 (Approximate), Expires: 05/31/2024 [facility] Service [facility] Work Phone: Comment on above: Expected: 05/31/2023 (Approximate), Expires: 05/31/2024 Start: 05-31-2023 Hepatitis B screening URINE ALBUMIN:CREATININE RATIO [facility] Start: 05-31-2023 End: 05-31-2024 Prostate specific Ag [Mass/volume] in Serum or Plasma Prostate Specific Antigen, Screen Lab Routine Prostate cancer screening Expected: 05/31/2023 (Approximate), Expires: 05/31/2024 [facility] Work Phone: Comment on above: Expected: 05/31/2023 (Approximate), Expires: 05/31/2024 Start: 05-31-2023 End: 05-31-2024 TSH with reflex to Free T4 if abnormal TSH with reflex to Free T4 if abnormal Lab Routine Encounter for routine history and physical examination of adult Type 2 diabetes mellitus without complication, without long-term current use of insulin (CMS/HCC) Depression, unspecified depression type Wellness examination Prostate cancer screening Expected: 05/31/2023 (Approximate), Expires: 05/31/2024 [facility] Work Phone: Comment on above: Expected: 05/31/2023 (Approximate), Expires: 05/31/2024 Start: 05-28-2023 Hepatitis B surface antibody level LDL CHOLESTEROL [facility] Start: 05-26-2023 Hepatitis B Vaccine (3 of 3 - 19+ 3-dose series) Hepatitis B Vaccine (3 of 3 - 19+ 3-dose series) [facility] Start: 05-26-2023 Hepatitis B Vaccines (3 of 3 - 19+ 3-dose series) Hepatitis B Vaccines (3 of 3 - 19+ 3-dose series) [facility] Start: 05-24-2023 Hemoglobin A1c/Hemoglobin.total in Blood HBA1C [facility] Start: 05-23-2023 3 comp foot exam completed DIABETIC FOOT EXAM [facility] Start: 04-04-2023 COVID-19 Vaccine ( season) COVID-19 Vaccine () [facility] Start: 04-03-2023 Behavioral Health Screening Behavioral Health Screening [facility] Start: 04-03-2023 Depression Assessment Depression Ass essment [facility] Start: 03-02-2023 End: 06-01-2023 ALBUMIN/CREAT RATIO RND UR ALBUMIN/CREAT RATIO RND UR Lab Routine Type 1 diabetes mellitus with hyperglycemia, with long-term current use of insulin (HCC) Expected: 03/02/2023, Expires: 06/01/2023 [facility] Work Phone: Comment on above: Expected: 03/02/2023 , Expires: 06/01/2023 Start: 03-02-2023 End: 06-01-2023 Comprehensive metabolic 2000 panel - Serum or Plasma COMP METABOLIC PANEL Lab Routine Type 1 diabetes mellitus with hyperglycemia, with long-term current use of insulin (HCC) Expected: 03/02/2023, Expires: 06/01/2023 [facility] Work Phone: Comment on above: Expected: 03/02/2023 , Expires: 06/01/2023 Start: 03-02-2023 End: 06-01-2023 Lipid 1996 panel - Serum or Plasma LIPID PANEL BASIC Lab Routine Type 1 diabetes mellitus with hyperglycemia, with long-term current use of insulin (HCC) Expected: 03/02/2023, Expires: 06/01/2023 [facility] Work Phone: Comment on above: Expected: 03/02/2023 , Expires: 06/01/2023 Start: 03-02-2023 End: 06-01-2023 Thyrotropin [Units/volume] in Serum or Plasma TSH BLD Lab Routine Type 1 diabetes mellitus with hyperglycemia, with long-term current use of insulin (HCC) Expected: 03/02/2023, Expires: 06/01/2023 [facility] Work Phone: Comment on above: Expected: 03/02/2023 , Expires: 06/01/2023 Start: 03-02-2023 End: 06-01-2023 Thyroxine (T4) free [Mass/volume] in Serum or Plasma T4 FREE/FREE THYROX Lab Routine Type 1 diabetes mellitus with hyperglycemia, with long-term current use of insulin (HCC) Expected: 03/02/2023, Expires: 06/01/2023 [facility] Work Phone: Comment on above: Expected: 03/02/2023 , Expires: 06/01/2023 Start: 02-22-2023 Hemoglobin A1c/Hemoglobin.total in Blood HBA1C [facility] Start: 12-02-2022 Covid-19 Vaccine () Covid-19 Vaccine () [facility] Start: 12-02-2022 Influenza vaccination [facility] [place] [facility] Start: 11-20-2022 Hemoglobin A1c/Hemoglobin.total in Blood HBA1C [facility] Start: 10-12-2022 Hepatitis C antibody , confirmatory test DILATED RETINAL EXAM [facility] Start: 08-17-2022 Hemoglobin A1c/Hemoglobin.total in Blood HBA1C [facility] Start: 05-24-2022 End: 07-24-2022 ALBUMIN/CREAT RATIO RND UR ALBUMIN/CREAT RATIO RND UR Lab Routine Type 1 diabetes mellitus with hyperglycemia, with long-term current use of insulin (HCC) Expected: 05/24/2022, Expires: 07/24/2022 [facility] Work Phone: Comment on above: Expected: 05/24/2022 , Expires: 07/24/2022 Start: 05-24-2022 End: 07-24-2022 Comprehensive metabolic 2000 panel - Serum or Plasma COMP METABOLIC PANEL Lab Routine Type 1 diabetes mellitus with hyperglycemia, with long-term current use of insulin (HCC) Expected: 05/24/2022, Expires: 07/24/2022 [facility] Work Phone: Comment on above: Expected: 05/24/2022 , Expires: 07/24/2022 Start: 05-24-2022 End: 07-24-2022 Lipid 1996 panel - Serum or Plasma LIPID PANEL BASIC Lab Routine Type 1 diabetes mellitus with hyperglycemia, with long-term current use of insulin (HCC) Expected: 05/24/2022, Expires: 07/24/2022 [facility] Work Phone: Comment on above: Expected: 05/24/2022 , Expires: 07/24/2022 Start: 05-24-2022 End: 07-24-2022 Thyrotropin [Units/volume] in Serum or Plasma TSH BLD Lab Routine Type 1 diabetes mellitus with hyperglycemia, with long-term current use of insulin (HCC) Expected: 05/24/2022, Expires: 07/24/2022 [facility] Work Phone: Comment on above: Expected: 05/24/2022 , Expires: 07/24/2022 Start: 05-24-2022 End: 07-24-2022 Thyroxine (T4) free [Mass/volume] in Serum or Plasma T4 FREE/FREE THYROX Lab Routine Type 1 diabetes mellitus with hyperglycemia, with long-term current use of insulin (HCC) Expected: 05/24/2022, Expires: 07/24/2022 [facility] Work Phone: Comment on above: Expected: 05/24/2022 , Expires: 07/24/2022 Start: 05-12-2022 Hemoglobin A1c/Hemoglobin.total in Blood HBA1C [facility] Start: 04-12-2022 3 comp foot exam completed DIABETIC FOOT EXAM [facility] Start: 04-03-2022 DEPRESSION ASSESSMENT DEPRESSION ASS ESSMENT [facility] Start: 01-16-2022 Hepatitis B surface antibody level LDL CHOLESTEROL [facility] Start: 01-11-2022 Hemoglobin A1c/Hemoglobin.total in Blood HBA1C [facility] Start: 12-02-2021 [facility] Start: 11-09-2021 End: 01-09-2022 ALBUMIN/CREAT RATIO RND UR ALBUMIN/CREAT RATIO RND UR Lab Routine Type 1 diabetes mellitus with hyperglycemia, with long-term current use of insulin ([facility]) Expected: 11/09/2021, Expires: 01/09/2022 [facility] Work Phone: Comment on above: Expected: 11/09/2021 , Expires: 01/09/2022 Start: 11-09-2021 End: 01-09-2022 Comprehensive metabolic 2000 panel - Serum or Plasma COMP METABOLIC PANEL Lab Routine Type 1 diabetes mellitus with hyperglycemia, with long-term current use of insulin (HCC) Expected: 11/09/2021, Expires: 01/09/2022 [facility] Work Phone: Comment on above: Expected: 11/09/2021 , Expires: 01/09/2022 Start: 11-09-2021 End: 01-09-2022 Lipid 1996 panel - Serum or Plasma LIPID PANEL BASIC Lab Routine Type 1 diabetes mellitus with hyperglycemia, with long-term current use of insulin (HCC) Expected: 11/09/2021, Expires: 01/09/2022 [facility] Work Phone: Comment on above: Expected: 11/09/2021 , Expires: 01/09/2022 Start: 11-09-2021 End: 01-09-2022 Thyrotropin [Units/volume] in Serum or Plasma TSH BLD Lab Routine Type 1 diabetes mellitus with hyperglycemia, with long-term current use of insulin (HCC) Expected: 11/09/2021, Expires: 01/09/2022 [facility] Work Phone: Comment on above: Expected: 11/09/2021 , Expires: 01/09/2022 Start: 11-09-2021 End: 01-09-2022 Thyroxine (T4) free [Mass/volume] in Serum or Plasma T4 FREE/FREE THYROX Lab Routine Type 1 diabetes mellitus with hyperglycemia, with long-term current use of insulin (HCC) Expected: 11/09/2021, Expires: 01/09/2022 [facility] Work Phone: Comment on above: Expected: 11/09/2021 , Expires: 01/09/2022 Start: 10-19-2021 Hepatitis C antibody , confirmatory test DILATED RETINAL EXAM [facility] Start: 04-03-2021 DEPRESSION ASSESSMENT DEPRESSION ASS ESSMENT [facility] Start: 03-24-2021 [object Object] [facility] Start: 03-04-2021 COVID-19 VACCINE (4 - Booster for Pfizer series) COVID-19 VACCINE (4 - Booster for Pfizer series) [facility] Start: 07-30-2020 HbA1c (Bld) [Mass fraction] HBA1C [facility] Start: 12-03-2019 Influenza vaccination INFLUENZA (#1) [facility] Start: 09-22-2019 Lipid panel Lipid Panel [facility] Start: 08-02-2018 LIPID SCREEN LIPID SCREEN [facility] Start: 08-02-2002 HEPATITIS B (1 of 3 - Risk 3-dose series) HEPATITIS B (1 of 3 - Risk 3-dose series) [facility] Start: 08-02-2002 Urine microalbumin profile DTAP,TDAP,TD (1 - Tdap) [facility] Start: 08-02-2002 Urine screening for protein Diabetes: Urine Protein Screening [facility] Start: 08-02-2001 ANNUAL PCP TEAM 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 ADMINISTRATOR MARGARETH DISEASE VISIT ANNUAL PCP TEAM CHRONIC DISEASE VISIT [facility] Start: 08-02-2001 Anxiety Screening Anxiety Screening [facility] Start: 08-02-2001 Depression Screening Depression Scre ening [facility] Start: 08-02-2001 Diabetes mellitus screening Diabetes Screening [facility] Start: 08-02-2001 Hepatitis B surface antibody level LDL CHOLESTEROL [facility] Start: 08-02-2001 HEPATITIS C SCREENING HEPATITIS C [facility] Start: 08-02-2001 Hepatitis C screening Hepatitis C [facility] Start: 08-02-2001 HIV SCREENING HIV SCREENING [facility] Start: 1999 ONE PNEUMOVAX PRIOR TO AGE 65 ONE PNEUMOVAX PRIOR TO AGE 65 [facility] Start: 08-02-1996 Varicella vaccination Varicell a Vaccines (1 of 2 - 13+ 2-dose series) [facility] Start: 1995 Adult depression screening assessment DEPRESSION SCREENING [facility] Start: 08-02-1993 [object Object] [facility] Start: 08-02-1993 Glaucoma screening Diabetes: R etinopathy Screening [facility] Start: 08-02-1993 Hepatitis B screening URINE ALBUMIN:CREATININE RATIO [facility] Start: 08-02-1993 Hepatitis C antibody , confirmatory test DILATED RETINAL EXAM [facility] Start: 08-02-1989 PNEUMOCOCCAL (1 - PCV) PNEUMOCOCCAL (1 - PCV) [facility] Start: 08-02-1988 HbA1c (Bld) [Mass fraction] HBA1C [facility] Start: 08-02-1984 MMR Vaccines (1 of 1 - Standard series) MMR Vaccines (1 of 1 - Standard series) [facility] Start: 08-02-1984 Varicella vaccination Varicell a Vaccines (1 of 2 - 2-dose childhood series) [facility] Start: 1983 HEPATITIS B (1 of 3 - 3-dose series) HEPATITIS B (1 of 3 - 3-dose series) [facility] Start: 1983 HIV screening HIV Screening [facility] Start: 1983 Yearly Adult Physical Yearly Adult P hysical [facility] End: 01-29-2021 C-PEPTIDE BLD C-PEPTIDE BLD Lab Routine Type 1 diabetes mellitus with hyperglycemia, with long-term current use of insulin (HCC) 1 Occurrences starting 01/30/2020 until 01/29/2021 [facility] Comment on above: 1 Occurrences starti ng 01/30/2020 until 01/29/2021 Extra Urine Chu Tube Extra Urin e Chu Tube Lab Routine Encounter for routine history and physical examination of adult Type 2 diabetes mellitus without complication, without long-term current use of insulin (CMS/HCC) Depression, unspecified depression type Wellness examination Prostate cancer screening Ordered: 05/31/2023 [facility] Work Phone: Comment on above: Ordered: 05/31/2023 End: 01-29-2021 GLUCOSE RANDOM BLD GLUCOSE RANDOM BLD Lab Routine Type 1 diabetes mellitus with hyperglycemia, with long-term current use of insulin (HCC) 1 Occurrences starting 01/30/2020 until 01/29/2021 [facility] Comment on above: 1 Occurrences starti ng 01/30/2020 until 01/29/2021 End: 01-29-2021 Glutamate decarboxylase 65 Ab Qn (S) GLUTAMIC AC DECARBOXYLASE AB Lab Routine Type 1 diabetes mellitus with hyperglycemia, with long-term current use of insulin (HCC) 1 Occurrences starting 01/30/2020 until 01/29/2021 [facility] Comment on above: 1 Occurrences starti ng 01/30/2020 until 01/29/2021 End: 01-29-2021 HB A1C B/O HB A1C B/O Lab Routine Type 1 diabetes mellitus with hyperglycemia, with long-term current use of insulin (HCC) Every 3 months for 4 Occurrences starting 01/30/2020 until 01/29/2021 [facility] Comment on above: Every 3 months for 4 Occurrences starting 01/30/2020 until 01/29/2021 End: 05-23-2023 Hemoglobin A1c/Hemoglobin.total in Blood HEMOGLOBIN A1C (POC) Lab Routine Type 1 diabetes mellitus with hyperglycemia, with long-term current use of insulin (HCC) Every 3 months for 4 Occurrences starting 05/23/2022 until 05/23/2023 [facility] Work Phone: Comment on above: Every 3 months for 4 Occurrences starting 05/23/2022 until 05/23/2023 End: 05-25-2024 Hemoglobin A1c/Hemoglobin.total in Blood HEMOGLOBIN A1C (POC) Lab Routine Type 1 diabetes mellitus with hyperglycemia, with long-term current use of insulin (HCC) Every 3 months for 4 Occurrences starting 05/25/2023 until 05/25/2024 [facility] Work Phone: Comment on above: Every 3 months for 4 Occurrences starting 05/25/2023 until 05/25/2024 SURGICAL PATHOLOGY [facility] Work Phone: Comment on above: Release Upon Orderin g for 1 Occurrences starting 02/15/2022 Urinalysis complete W Reflex Culture panel - Urine Urinalysis with Reflex Culture and Microscopic Lab Routine Encounter for routine history and physical examination of adult Type 2 diabetes mellitus without complication, without long-term current use of insulin (CMS/HCC) Depression, unspecified depression type Wellness examination Prostate cancer screening Ordered: 05/31/2023 [facility] Work Phone: Comment on above: Ordered: 05/31/2023 End: 01-24-2024 XR Shoulder - left 2 Views [facility] Service Area Work Phone: Comment on above: Once for 1 Occurrenc es starting 01/24/2024 until 01/24/2024 [facility] Immunizations Immunization Date Immunization Notes Care Provider Fa [facility] 11-23-2022 hepatitis B vaccine, adult dosage Dominic Calloway MD Work Phone: [facility] 11-23-2022 pneumococcal polysaccharide vaccine, 23 valent Dominic Calloway MD Work Phone: [facility] Work Phone: 11-23-2022 tetanus toxoid, redu lety diphtheria toxoid, and acellular pertussis vaccine, adsorbed Dominic Calloway MD Work Phone: [facility] Work Phone: 05-16-2022 Pfizer Purple Cap SARS-CoV-2 Dominic Calloway MD Work Phone: [facility] Work Phone: 01-07-2021 Pfizer-BioNTech COVI D-19 Vacc 30 MCG/0.3ML Intramuscular Suspension Dominic Calloway Work Phone: [id number] Work Phone: 07-02-2020 Pfizer-BioNTech COVI D-19 Vacc 30 MCG/0.3ML Intramuscular Suspension Dominic Calloway Work Phone: [facility] 06-11-2020 Pfizer-BioNTech COVI D-19 Vacc 30 MCG/0.3ML Intramuscular Suspension Dominic Calloway Work Phone: [facility] 11-20-2019 tetanus toxoid, redu lety diphtheria toxoid, and acellular pertussis vaccine, adsorbed Dominic Calloway MD Work Phone: [facility] Work Phone: Payers Date Payer Category Payer [employer] Man[employer] [facility] [id number] 2019 Unknown [id number] 2019 Unknown 2019 Unknown [id number] 2017 Unknown [id number] 2017 Self-pay 1983 Unknown [id number] 1983 Unknown [id number] 356 1983 Unknown [id number] 479 1983 Unknown [id number] [id number] 479 1983 Unknown [id number] 1983 Unknown [id number] 1983 Unknown [id number] 1983 Unknown [id number] 598 1983 Unknown [id number] 1959 Unknown [id number] Social History Date Type Detail Facility Tobacco smoking status [facility] Unknown if ever smoked [facility] Start: 1985 Sex Assigned At Not on file [facility] Start: 07-02-2021 End: 01-24-2024 Exposure to SARS-CoV-2 (event) Not sure [facility] Start: 01-30-2020 End: 11-09-2021 Tobacco smoking status UTIS Former smoker [facility] Start: 01-30-2020 End: 05-31-2023 Tobacco use and exposure Never used [facility] Start: 01-30-2020 End: 02-08-2022 Alcohol intake Ex-drinker (finding) [facility] End: 03-24-2000 History of tobacco use Current smoker [facility] End: 03-24-2000 History of tobacco use Cigarette Smoker [facility] Start: 08-22-2022 End: 01-15-2024 Former smoker Former smoker [id number] Work Phone: Start: 1985 Sex Assigned At Male [facility] Start: 02-15-2022 End: 11-23-2023 Alcohol intake Current drinker of alcohol (finding) [facility] Start: 02-15-2022 Alcohol Comment [facility] Start: 08-22-2022 End: 01-15-2024 Tobacco use panel [facility] National Score (1-100), lower number is lower risk 74 [facility] Start: 03-25-2021 Gender identity Identifies as male gender (finding) [facility] Start: 03-25-2021 Sexual orientation Heterosexual (sheng cuello) [facility] Start: 05-31-2023 Tobacco smoking status NHIS Never smoked tobacco [facility] Work Phone: NEGATED: Highlighted rowStart: NINF History of tobacco use Passive smoker [facility] Work Phone: Medical Equipment Procedure Code Equipment Code Equipment Original Text Equipment Identifier Dates [id number], [id number], [id number], [id number], [id number] Start: 11-09-2019 End: 11-23-2023 Comment on above: CHECK GLUCOSE FOUR T IMES A DAY Inject 1 Each subcut aneously four times daily. USE TO INJECT INSULI N LISPRO AND LANTUS TEST 4 TIMES DAILY USE 1 SYRINGE DAILY USE DAILY NEEDED FOR PUMP FAILURE 1 Each once daily. Clinical Notes 04-19-2021 to 01-15-2024 Dominic Tinoco MD - 01/15/2024 8:40 AM EDAdeola Howell, PUMP STATION OPERATOR.WAIST CUTTER - 11/23/2023 3:39 PM EDTTelephone Encounter - Shoshana Yates LPN - 11/17/2023 3:14 PM Martha Corrales RN - 02/15/2022 3:35 PM EST Note Date & Type Note Facility 01-15-2024 History of Present illness Narrative Subjective Patient ID: Bonnie Quinteros is a 38 y.o. male who presents for Arm Pain (Left arm pain and starts in the shoulder). 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 This has been going most of the year. Thought that it will get better. Bit it is not. Not taking any over the counter medication. It is also weak. He thinks it can be from weights. Review of Systems History reviewed. No pertinent past medical history. Past Surgical History: Procedure Laterality Date OTHER SURGICAL HISTORY 01/01/2014 Oral Surgery Social History Socioeconomic History Marital status: Tobacco Use Smoking status: Never Passive exposure: Never Smokeless tobacco: Never No family history on file. MEDICATIONS AND ALLERGIES: ALLERGIES Patient has no known allergies. MEDICATIONS Current Outpatient Medications on File Prior to Visit Medication Sig Dispense Refill FLUoxetine (PROzac) 20 mg tablet Take by mouth once daily. HumaLOG U-100 Insulin 100 unit/mL injection FOR USE IN INSULIN PUMP, USING ABOUT 75 UNITS PER DAY lamoTRIgine (LaMICtal) 200 mg tablet Take by mouth once daily. BD Insulin Syringe Ultra-Fine 0.3 mL 31 gauge x 5/16 syringe Dexcom G6 Sensor device USE 1 EVERY 10 DAYS ibuprofen 800 mg tablet Take 1 tablet (800 mg) by mouth every 8 hours if needed. No current facility-administered medications on file prior to visit. Objective Visit Vitals BP 120/76 Pulse 53 Temp 36.1 C (97 F) SpO2 94% Smoking Status Never 05/31/2023 8:57 AM 01/15/2024 8:46 AM Vitals Systolic 116 120 Diastolic 78 76 Heart Rate 76 53 Temp 36.6 C (97.9 F) 36.1 C (97 F) Height (in) 1.702 m (5' 7 ) Weight (lb) 196 BMI 30.7 kg/m2 BSA (m2) 2.05 m2 Visit Report Report Report Physical Exam Tendrenss on palpating the AV joint He has pain on active flexion and extension of the shoulder. 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 Orders: meloxicam (Mobic) 15 mg tablet; Take 1 tablet (15 mg) by mouth once daily for 10 days. Referral to Orthopaedic Surgery; Future documented in this encounter [facility] Work Phone: 11-23-2023 Note HNO ID: [id number] Author: ADEOLA BRONSON APRN.WAIST CUTTER Service: ? Author Type: Nurse Practitioner Type: Progress Notes Filed: 11/23/2023 15:57 Note Text: Subjective Bonnie Quinteros is a 38 year old male who presents for diabetes management. Timeline: Diagnosed with type 1 diabetes 10/2019. Established care with endocrinology 11/2019. Current medications for diabetes: Humalog via Tandem insulin pump Current pump settings: Basal rates: 0000 - 0600 1.2 0600 - 2000 0.8 1999 - 0000 1.0 Active insulin time: 5 hours Carbohydrate ratio: 0000 - 0600 12 0600 - 2000 10 2000 - 0000 9.5 Insulin sensitivity/correction factor: 0000 - 0600 65 0600 - 1400 80 1400 - 0000 71 Blood glucose target: 110 Today's visit: Patient presents for management of his diabetes. CGM Data--Please see Lab tab and Scanned Docs tab for downloaded data from [employer] device on November 23, 2023: Pump is downloaded today: TIR: 78% High: 12% Low: 8% Patterns show glucose much more erratic on weekends. He has not been pre-bolusing for meals which causes hyperglycemia followed by hypoglycemia. He has no complaints or concerns today. 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 Diet: Typical breakfast: Sausage, bread, and eggs. Typical lunch: Salad with raisins and chicken. Typical dinner: Variable. Sweet potatoes, vegetables, chicken. Proficient in counting carbs. Exercise/activity: Walking. Denies frequent periods of hypoglycemia. Patient verbalized understanding of the signs and symptoms of hypoglycemia and its treatment options. Important Diabetes Lab History: HBA1C: 01/2020 6.4%. 06/2020 7.1%. 10/2020 6.9%. 04/2021 8.0%. 07/2021 7.7%. 11/2021 6.9%. 02/2022 6.6%. 05/2022 6.4%. 08/2022 6.6%. 11/2022 7.2%. 02/2023 6.6%. 05/2023 6.9%. 08/2023 6.5%. 11/2023 6.2%. Thyroid Function Testin01/2021 TSH 1.390, T4 1.1. 05/2022 TSH 1.190, T4 1.1. 04/2023 TSH 2.00, T4 0.96. Renal Function Testin10/2019 creatinine 0.7, GFR >60. 01/2021 creatinine 0.89, GFR >60. 05/2022 creatinine 0.88, GFR >60. 04/2023 creatinine 0.82, GFR >60. Urine for Microalbumin: 01/2021 orders placed. 05/2022 orders placed. 04/2023 Microalbumin : creatinine ratio 10. Lipid Profile: 01/2021 Cholesterol 178, triglycerides 37, HDL 79, LDL 191, VLDL 7. 05/2022 Cholesterol 189, triglycerides 37, HDL 86, LDL 96, VLDL 7. 04/2023 Cholesterol 204, triglycerides 53, HDL 88, LDL 105, VLDL 11. Liver Profile: 10/2019 AST 97, ALT 10, alk phos 97, total bili 0.4. 01/2021 AST 14, ALT 15, alk phos 56, total bili 0.4. 05/2022 AST 27, ALT 23, alk phos 84, total bili 0.5. 04/2023 AST 49, ALT 36, alk phos 86, total bili 0.5. C-peptide: 02/2020: 1.19 (0.8-3.9), glucose 108. 01/2021 0.3, glucose 122. Glutamic acid decarboxylase AB: 02/2020: POSITIVE >250 (<5.1). 01/2021 POSITIVE >120. Insulin antibody: 02/2020 <0.4 (<0.4). Important Diabetes Maintenance: Eye Exam: 10/19/2020 see scanned documents. 10/12/2021 see scanned documents. 10/14/2022 see scanned docs. Educated on importance of annual dilated eye exams. Instructed to fax me results. Diabetes Pertinent negatives for hypoglycemia include no dizziness, headaches, nervousness/anxiousness, seizures or tremors. Pertinent negatives for diabetes include no blurred vision, no chest pain, no polydipsia, no weakness and no weight loss. Review of Systems Constitutional: Negative for chills, fever, malaise/fatigue and weight loss. HENT: Negative for ear pain, hearing loss, nosebleeds and sore throat. Eyes: Negative for blurred vision and double vision. Respiratory: Negative for cough, hemoptysis, sputum production, shortness of breath and wheezing. Cardiovascular: Negative for chest pain, palpitations and leg swelling. Gastrointestinal: Negative for abdominal pain, blood in stool, constipation, diarrhea, heartburn, melena, nausea and vomiting. Genitourinary: Negative for dysuria, flank pain, frequency, hematuria and urgency. Musculoskeletal: Negative for back pain, falls, joint pain, myalgias and neck pain. Skin: Negative for itching and rash. Neurological: Negative for dizziness, tingling, tremors, sensory change, speech change, focal weakness, seizures, loss of consciousness, weakness and headaches. Endo/Heme/Allergies: Negative for environmental allergies and polydipsia. Does not bruise/bleed easily. Psychiatric/Behavioral: Negative for depression, hallucinations, memory loss, substance abuse and suicidal ideas. The patient is not nervous/anxious and does not have insomnia. PAST MEDICAL HISTORY No date: Depression 10/17/2019: Diabetes mellitus type 1 (HCC) No date: ROSCOE (obstructive sleep apnea) PAST SURGICAL HISTORY No date: PAST SURGICAL HISTORY OF Comment: wisdom teeth No date: TESTICULAR BIOPSY PREP Comment: 02/2022 FAMILY HISTORY Problem Relation Age of Onset Thyroid Mother Social History Tobacco Use Smoking status: Former Current packs/day: 0.00 Types: Cigarettes Quit (more content not included)... [facility] 11-23-2023 History of Present illness Narrative Subjective Bonnie Quinteros is a 38 year old male who presents for diabetes management. Timeline: Diagnosed with type 1 diabetes 10/2019. Established care with endocrinology 11/2019. Current medications for diabetes: Humalog via Tandem insulin pump Current pump settings: Basal rates: 0000 - 0600 1.2 0600 - 2000 0.8 1999 - 1.0 Active insulin time: 5 hours Carbohydrate ratio: 0000 - 0600 12 0600 - 2000 10 2000 - 0000 9.5 Insulin sensitivity/correction factor: 0000 - 0600 65 0600 - 1400 80 1400 - 0000 71 Blood glucose target: 110 Today's visit: Patient presents for management of his diabetes. CGM Data--Please see Lab tab and Scanned Docs tab for downloaded data from [employer] device on November 23, 2023: Pump is downloaded today: TIR: 78% High: 12% Low: 8% Patterns show glucose much more erratic on weekends. He has not been pre-bolusing for meals which causes hyperglycemia followed by hypoglycemia. He has no complaints or concerns today. 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 Diet: Typical breakfast: Sausage, bread, and eggs. Typical lunch: Salad with raisins and chicken. Typical dinner: Variable. Sweet potatoes, vegetables, chicken. Proficient in counting carbs. Exercise/activity: Walking. Denies frequent periods of hypoglycemia. Patient verbalized understanding of the signs and symptoms of hypoglycemia and its treatment options. Important Diabetes Lab History: HBA1C: 01/2020 6.4%. 06/2020 7.1%. 10/2020 6.9%. 04/2021 8.0%. 07/2021 7.7%. 11/2021 6.9%. 02/2022 6.6%. 05/2022 6.4%. 08/2022 6.6%. 11/2022 7.2%. 02/2023 6.6%. 05/2023 6.9%. 08/2023 6.5%. 11/2023 6.2%. Thyroid Function Testin01/2021 TSH 1.390, T4 1.1. 05/2022 TSH 1.190, T4 1.1. 04/2023 TSH 2.00, T4 0.96. Renal Function Testin10/2019 creatinine 0.7, GFR >60. 01/2021 creatinine 0.89, GFR >60. 05/2022 creatinine 0.88, GFR >60. 04/2023 creatinine 0.82, GFR >60. Urine for Microalbumin: 01/2021 orders placed. 05/2022 orders placed. 04/2023 Microalbumin : creatinine ratio 10. Lipid Profile: 01/2021 Cholesterol 178, triglycerides 37, HDL 79, LDL 191, VLDL 7. 05/2022 Cholesterol 189, triglycerides 37, HDL 86, LDL 96, VLDL 7. 04/2023 Cholesterol 204, triglycerides 53, HDL 88, LDL 105, VLDL 11. Liver Profile: 10/2019 AST 97, ALT 10, alk phos 97, total bili 0.4. 01/2021 AST 14, ALT 15, alk phos 56, total bili 0.4. 05/2022 AST 27, ALT 23, alk phos 84, total bili 0.5. 04/2023 AST 49, ALT 36, alk phos 86, total bili 0.5. C-peptide: 02/2020: 1.19 (0.8-3.9), glucose 108. 01/2021 0.3, glucose 122. Glutamic acid decarboxylase AB: 02/2020: POSITIVE >250 (<5.1). 01/2021 POSITIVE >120. Insulin antibody: 02/2020 <0.4 (<0.4). Important Diabetes Maintenance: Eye Exam: 10/19/2020 see scanned documents. 10/12/2021 see scanned documents. 10/14/2022 see scanned docs. Educated on importance of annual dilated eye exams. Instructed to fax me results. Diabetes Pertinent negatives for hypoglycemia include no dizziness, headaches, nervousness/anxiousness, seizures or tremors. Pertinent negatives for diabetes include no blurred vision, no chest pain, no polydipsia, no weakness and no weight loss. Review of Systems Constitutional: Negative for chills, fever, malaise/fatigue and weight loss. HENT: Negative for ear pain, hearing loss, nosebleeds and sore throat. Eyes: Negative for blurred vision and double vision. Respiratory: Negative for cough, hemoptysis, sputum production, shortness of breath and wheezing. Cardiovascular: Negative for chest pain, palpitations and leg swelling. Gastrointestinal: Negative for abdominal pain, blood in stool, constipation, diarrhea, heartburn, melena, nausea and vomiting. Genitourinary: Negative for dysuria, flank pain, frequency, hematuria and urgency. Musculoskeletal: Negative for back pain, falls, joint pain, myalgias and neck pain. Skin: Negative for itching and rash. Neurological: Negative for dizziness, tingling, tremors, sensory change, speech change, focal weakness, seizures, loss of consciousness, weakness and headaches. Endo/Heme/Allergies: Negative for environmental allergies and polydipsia. Does not bruise/bleed easily. Psychiatric/Behavioral: Negative for depression, hallucinations, memory loss, substance abuse and suicidal ideas. The patient is not nervous/anxious and does not have insomnia. PAST MEDICAL HISTORY No date: Depression 10/17/2019: Diabetes mellitus type 1 (HCC) No date: ROSCOE (obstructive sleep apnea) PAST SURGICAL HISTORY No date: PAST SURGICAL HISTORY OF Comment: wisdom teeth No date: TESTICULAR BIOPSY PREP Comment: 02/2022 FAMILY HISTORY Problem Relation Age of Onset Thyroid Mother Social History Tobacco Use Smoking status: Former Current packs/day: 0.00 Types: Cigarettes Quit date: 03/24/2000 Years since quittin.6 Smokeless tobacco: Never Vaping Use Vaping status: Some Days Substances: THC Substance Use Topics Alcohol use: Yes Comment: rare wine Drug use: Yes Types: Marijuana Comment: daily Current Meds DEXCOM G7 SENSOR verna 1 Each every 10 days. insulin lispro (HUMALOG U-100 INSULIN) 100 unit/mL injection FOR USE IN INSULIN PUMP, USING ABOUT 75 UNITS PER DAY BD INSULIN SYRINGE ULTRA-FINE 0.3 mL 31 gauge x 5/16 USE DAILY NEEDED FOR PUMP FAILURE glucagon (BAQSIMI) 3 mg/actuation nasal spray Use 1 [place] in the nose as needed. May repeat after 15 minutes using a new device if there is no response. FLUoxetine HCl 20 mg tablet Take 20 mg by mouth once daily. lamoTRIgine (LAMICTAL) 200 mg tablet Take 200 mg by mouth once daily. Objective Ht 170.2 cm (5' 7 ) BMI 29.76 kg/m Physical Exam HENT: Head: Normocephalic and atraumatic. Cardiovascular: Rate and Rhythm: Normal rate and regular rhythm. Pulmonary: Effort: Pulmonary effort is normal. Breath sounds: Normal breath sounds. Musculoskeletal: Cervical back: Normal range of motion and neck supple. Skin: General: Skin is warm and dry. Neurological: Mental Status: He is alert and oriented to person, place, and time. Plan ASSESSMENT/PLAN: 1. Type 1 diabetes mellitus with hyperglycemia, with long-term current use of insulin ([facility]) - ICD9: 250.01, 790.29, ICD10: E10.65 2. Presence of insulin pump - ICD9: V45.85, ICD10: Z96.41 (primary diagnosis) 3. Insulin pump titration - ICD9: V53.91, ICD10: Z46.81 Insulin: Humalog Plan of care: 1. HbA1C 6.2%. 2. Medication changes: CONTINUE Humalog via Tandem insulin pump. See below. Your new insulin regimen: Basal rates: - 06 1.2 599 - 1999 0.8 1999 - 1.0 Active insulin time: 5:00 hours Carbohydrate ratio: 0000 - 0600 12 599 - 1999 10 1999 - 9.5 Insulin sensitivity/correction factor: 0000 - 0600 65 --> change to 75 0600 - 1400 80 --> change to 95 1400 - 0000 71 Blood glucose target: 110 4. Continue Dexcom G6. 5. Answered all questions. 6. Educated patient on therapeutic lifestyle changes. 7. Patient verbalized understanding of all the above instructions. 8. Patient has multiple other questions, all of which are answered. 9. Has Rx for Baqsimi 4. Class 1 obesity with serious comorbidity and body mass index (BMI) of 31.0 to 31.9 in adult, unspecified obesity type - ICD9: 278.00, V85.30, ICD10: E66.9, Z68.30 - Weight increasing. - Last 2 Encounter Wt Readings: Date: Wt: 11/23/2023 89.9 kg (198 lb 3.2 oz) 09/30/2023 86.2 kg (190 lb) - We reviewed diet and exercise goals. Follow up: Return in about 3 months (around 02/23/2024) for Diabetes follow-up. Adeola Bronson CNP 11/23/2023 3:40 PM documented in this encounter [facility] 11-17-2023 Telephone encounter Note Patient called requesting the following refill. Requested Prescriptions Pending Prescriptions Disp Refills DEXCOM G7 SENSOR verna 9 Each 3 Si Each every 10 days. Patient last appointment: 08/29/2023 Next Appointment: 11/23/2023 Patient Phone numbers: [phone] (home) [phone] (work) Request is for script(s) to be escript to pharmacy. Shoshana Yates LPN [facility] 11-17-2023 Miscellaneous Notes Patient called requesting the following refill. Requested Prescriptions Pending Prescriptions Disp Refills DEXCOM G7 SENSOR verna 9 Each 3 Si Each every 10 days. Patient last appointment: 08/29/2023 Next Appointment: 11/23/2023 Patient Phone numbers: [phone] (home) [phone] (work) Request is for script(s) to be escript to pharmacy. Shoshana Yates LPN documented in this encounter [facility] 10-06-2023 Telephone encounter Note Received a fax from [employer] stating that pt's dexcom g6 sensor was approved and is valid from 10/06/2023-10/05/2024 and PA number is [id number] Shoshana Yates LPN [facility] 10-06-2023 Miscellaneous Notes Received a fax from [employer] stating that pt's dexcom g6 sensor was approved and is valid from 10/06/2023-10/05/2024 and PA number is [id number] Shoshana Yates LPN Pa for pt's Dexcom G6 Sensor was submitted via covermymeds HAN : [id number] Shoshana Yates LPN documented in this encounter [facility] 10-06-2023 Telephone encounter Note Pa for pt's Dexcom G6 Sensor was submitted via covermymeds HAN : [id number] Shoshana Yates LPN [facility] 08-29-2023 Note HNO ID: [id number] Author: ADEOLA BRONSON APRN.WAIST CUTTER Service: ? Author Type: Nurse Practitioner Type: Progress Notes Filed: 08/29/2023 16:11 Note Text: Subjective Bonnie Quinteros is a 38 year old male who presents for diabetes management. Timeline: Diagnosed with type 1 diabetes 10/2019. Established care with [facility] end[facility]inology 11/2019. Current medications for diabetes: Humalog via Tandem insulin pump Current pump settings: Basal rates: 0000 - 0600 1.2 599 - 1999 0.8 1999 - 1.0 Active insulin time: 5 hours Carbohydrate ratio: 0000 - 0600 12 0600 - 2000 9.5 2000 - 9.5 Insulin sensitivity/correction factor: 0000 - 0600 65 0600 - 1400 71 1400 - 0000 71 Blood glucose target: 110 Today's visit: Patient presents for management of his diabetes. Pump is downloaded today: TIR: 79% High: 16% Low: 4% Patterns show glucose much more erratic on weekends. More stable on weekdays. On weekdays, he has more hypoglycemia in the afternoons when he exercises. He has no complaints or concerns today. 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 Diet: Typical breakfast: Sausage, bread, and eggs. Typical lunch: Salad with raisins and chicken. Typical dinner: Variable. Sweet potatoes, vegetables, chicken. Proficient in counting carbs. Exercise/activity: Walking. Denies frequent periods of hypoglycemia. Patient verbalized understanding of the signs and symptoms of hypoglycemia and its treatment options. Important Diabetes Lab History: HBA1C: 01/2020 6.4%. 06/2020 7.1%. 10/2020 6.9%. 04/2021 8.0%. 07/2021 7.7%. 11/2021 6.9%. 02/2022 6.6%. 05/2022 6.4%. 08/2022 6.6%. 11/2022 7.2%. 02/2023 6.6%. 05/2023 6.9%. 08/2023 6.5%. Thyroid Function Testin01/2021 TSH 1.390, T4 1.1. 05/2022 TSH 1.190, T4 1.1. 04/2023 TSH 2.00, T4 0.96. Renal Function Testin10/2019 creatinine 0.7, GFR >60. 01/2021 creatinine 0.89, GFR >60. 05/2022 creatinine 0.88, GFR >60. 04/2023 creatinine 0.82, GFR >60. Urine for Microalbumin: 01/2021 orders placed. 05/2022 orders placed. 04/2023 Microalbumin : creatinine ratio 10. Lipid Profile: 01/2021 Cholesterol 178, triglycerides 37, HDL 79, LDL 191, VLDL 7. 05/2022 Cholesterol 189, triglycerides 37, HDL 86, LDL 96, VLDL 7. 04/2023 Cholesterol 204, triglycerides 53, HDL 88, LDL 105, VLDL 11. Liver Profile: 10/2019 AST 97, ALT 10, alk phos 97, total bili 0.4. 01/2021 AST 14, ALT 15, alk phos 56, total bili 0.4. 05/2022 AST 27, ALT 23, alk phos 84, total bili 0.5. 04/2023 AST 49, ALT 36, alk phos 86, total bili 0.5. C-peptide: 02/2020: 1.19 (0.8-3.9), glucose 108. 01/2021 0.3, glucose 122. Glutamic acid decarboxylase AB: 02/2020: POSITIVE >250 (<5.1). 01/2021 POSITIVE >120. Insulin antibody: 02/2020 <0.4 (<0.4). Important Diabetes Maintenance: Eye Exam: 10/19/2020 see scanned documents. 10/12/2021 see scanned documents. 10/14/2022 see scanned docs. Educated on importance of annual dilated eye exams. Instructed to fax me results. Diabetes Pertinent negatives for hypoglycemia include no dizziness, headaches, nervousness/anxiousness, seizures or tremors. Pertinent negatives for diabetes include no blurred vision, no chest pain, no polydipsia, no weakness and no weight loss. Review of Systems Constitutional: Negative for chills, fever, malaise/fatigue and weight loss. HENT: Negative for ear pain, hearing loss, nosebleeds and sore throat. Eyes: Negative for blurred vision and double vision. Respiratory: Negative for cough, hemoptysis, sputum production, shortness of breath and wheezing. Cardiovascular: Negative for chest pain, palpitations and leg swelling. Gastrointestinal: Negative for abdominal pain, blood in stool, constipation, diarrhea, heartburn, melena, nausea and vomiting. Genitourinary: Negative for dysuria, flank pain, frequency, hematuria and urgency. Musculoskeletal: Negative for back pain, falls, joint pain, myalgias and neck pain. Skin: Negative for itching and rash. Neurological: Negative for dizziness, tingling, tremors, sensory change, speech change, focal weakness, seizures, loss of consciousness, weakness and headaches. Endo/Heme/Allergies: Negative for environmental allergies and polydipsia. Does not bruise/bleed easily. Psychiatric/Behavioral: Negative for depression, hallucinations, memory loss, substance abuse and suicidal ideas. The patient is not nervous/anxious and does not have insomnia. PAST MEDICAL HISTORY Diagnosis Date Depression Diabetes mellitus type 1 (HCC) 10/17/2019 [place] (obstructive sleep apnea) PAST SURGICAL HISTORY Procedure Laterality Date PAST SURGICAL HISTORY OF wisdom teeth TESTICULAR BIOPSY PREP 02/2022 FAMILY HISTORY Problem Relation Age of Onset Thyroid Mother Social History Tobacco Use Smoking status: Former Types: Cigarettes Quit date: 03/24/2000 Years since quittin.4 Smokeless tobacco: Never Vaping Use Vaping Use: Some days Substances: THC Substance Use Topics (more content not included)... [facility] 08-29-2023 History of Present illness Narrative Subjective Bonnie Quinteros is a 38 year old male who presents for diabetes management. Timeline: Diagnosed with type 1 diabetes 10/2019. Established care with endocrinology 11/2019. Current medications for diabetes: Humalog via Tandem insulin pump Current pump settings: Basal rates: 0000 - 0600 1.2 0600 - 2000 0.8 2000 - 0000 1.0 Active insulin time: 5 hours Carbohydrate ratio: 0000 - 0600 12 0600 - 2000 9.5 2000 - 0000 9.5 Insulin sensitivity/correction factor: 0000 - 0600 65 0600 - 1400 71 1400 - 0000 71 Blood glucose target: 110 Today's visit: Patient presents for management of his diabetes. Pump is downloaded today: TIR: 79% High: 16% Low: 4% Patterns show glucose much more erratic on weekends. More stable on weekdays. On weekdays, he has more hypoglycemia in the afternoons when he exercises. He has no complaints or concerns today. 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 Diet: Typical breakfast: Sausage, bread, and eggs. Typical lunch: Salad with raisins and chicken. Typical dinner: Variable. Sweet potatoes, vegetables, chicken. Proficient in counting carbs. Exercise/activity: Walking. Denies frequent periods of hypoglycemia. Patient verbalized understanding of the signs and symptoms of hypoglycemia and its treatment options. Important Diabetes Lab History: HBA1C: 01/2020 6.4%. 06/2020 7.1%. 10/2020 6.9%. 04/2021 8.0%. 07/2021 7.7%. 11/2021 6.9%. 02/2022 6.6%. 05/2022 6.4%. 08/2022 6.6%. 11/2022 7.2%. 02/2023 6.6%. 05/2023 6.9%. 08/2023 6.5%. Thyroid Function Testin01/2021 TSH 1.390, T4 1.1. 05/2022 TSH 1.190, T4 1.1. 04/2023 TSH 2.00, T4 0.96. Renal Function Testin10/2019 creatinine 0.7, GFR >60. 01/2021 creatinine 0.89, GFR >60. 05/2022 creatinine 0.88, GFR >60. 04/2023 creatinine 0.82, GFR >60. Urine for Microalbumin: 01/2021 orders placed. 05/2022 orders placed. 04/2023 Microalbumin : creatinine ratio 10. Lipid Profile: 01/2021 Cholesterol 178, triglycerides 37, HDL 79, LDL 191, VLDL 7. 05/2022 Cholesterol 189, triglycerides 37, HDL 86, LDL 96, VLDL 7. 04/2023 Cholesterol 204, triglycerides 53, HDL 88, LDL 105, VLDL 11. Liver Profile: 10/2019 AST 97, ALT 10, alk phos 97, total bili 0.4. 01/2021 AST 14, ALT 15, alk phos 56, total bili 0.4. 05/2022 AST 27, ALT 23, alk phos 84, total bili 0.5. 04/2023 AST 49, ALT 36, alk phos 86, total bili 0.5. C-peptide: 02/2020: 1.19 (0.8-3.9), glucose 108. 01/2021 0.3, glucose 122. Glutamic acid decarboxylase AB: 02/2020: POSITIVE >250 (<5.1). 01/2021 POSITIVE >120. Insulin antibody: 02/2020 <0.4 (<0.4). Important Diabetes Maintenance: Eye Exam: 10/19/2020 see scanned documents. 10/12/2021 see scanned documents. 10/14/2022 see scanned docs. Educated on importance of annual dilated eye exams. Instructed to fax me results. Diabetes Pertinent negatives for hypoglycemia include no dizziness, headaches, nervousness/anxiousness, seizures or tremors. Pertinent negatives for diabetes include no blurred vision, no chest pain, no polydipsia, no weakness and no weight loss. Review of Systems Constitutional: Negative for chills, fever, malaise/fatigue and weight loss. HENT: Negative for ear pain, hearing loss, nosebleeds and sore throat. Eyes: Negative for blurred vision and double vision. Respiratory: Negative for cough, hemoptysis, sputum production, shortness of breath and wheezing. Cardiovascular: Negative for chest pain, palpitations and leg swelling. Gastrointestinal: Negative for abdominal pain, blood in stool, constipation, diarrhea, heartburn, melena, nausea and vomiting. Genitourinary: Negative for dysuria, flank pain, frequency, hematuria and urgency. Musculoskeletal: Negative for back pain, falls, joint pain, myalgias and neck pain. Skin: Negative for itching and rash. Neurological: Negative for dizziness, tingling, tremors, sensory change, speech change, focal weakness, seizures, loss of consciousness, weakness and headaches. Endo/Heme/Allergies: Negative for environmental allergies and polydipsia. Does not bruise/bleed easily. Psychiatric/Behavioral: Negative for depression, hallucinations, memory loss, substance abuse and suicidal ideas. The patient is not nervous/anxious and does not have insomnia. PAST MEDICAL HISTORY Diagnosis Date Depression Diabetes mellitus type 1 (HCC) 10/17/2019 [place] (obstructive sleep apnea) PAST SURGICAL HISTORY Procedure Laterality Date PAST SURGICAL HISTORY OF wisdom teeth TESTICULAR BIOPSY PREP 02/2022 FAMILY HISTORY Problem Relation Age of Onset Thyroid Mother Social History Tobacco Use Smoking status: Former Types: Cigarettes Quit date: 03/24/2000 Years since quittin.4 Smokeless tobacco: Never Vaping Use Vaping Use: Some days Substances: THC Substance Use Topics Alcohol use: Yes Comment: rare wine Drug use: Yes Types: Marijuana Comment: daily Current Meds insulin lispro (HUMALOG U-100 INSULIN) 100 unit/mL injection FOR USE IN INSULIN PUMP, USING ABOUT 75 UNITS PER DAY DEXCOM G7 SENSOR verna 1 Each every 10 days. BD INSULIN SYRINGE ULTRA-FINE 0.3 mL 31 gauge x 5/16 USE DAILY NEEDED FOR PUMP FAILURE ACCU-CHEK GUIDE TEST STRIPS test strip TEST 4 TIMES DAILY glucagon (BAQSIMI) 3 mg/actuation nasal spray Use 1 [place] in the nose as needed. May repeat after 15 minutes using a new device if there is no response. ACCU-CHEK FASTCLIX LANCET DRUM lancets CHECK GLUCOSE FOUR TIMES A DAY alcohol swabs USE TO TEST BLOOD GLUCOSE 4 TIMES A DAY ACCU-CHEK GUIDE ME GLUCOSE MTR CHECK GLUCOSE FOUR TIMES A DAY, BEFORE MEALS AND AT BEDTIME FLUoxetine HCl 20 mg tablet Take 20 mg by mouth once daily. lamoTRIgine (LAMICTAL) 200 mg tablet Take 200 mg by mouth once daily. Objective Ht 170.2 cm (5' 7 ) BMI 30.54 kg/m Physical Exam HENT: Head: Normocephalic and atraumatic. Cardiovascular: Rate and Rhythm: Normal rate and regular rhythm. Pulmonary: Effort: Pulmonary effort is normal. Breath sounds: Normal breath sounds. Musculoskeletal: Cervical back: Normal range of motion and neck supple. Skin: General: Skin is warm and dry. Neurological: Mental Status: He is alert and oriented to person, place, and time. Plan ASSESSMENT/PLAN: 1. Type 1 diabetes mellitus with hyperglycemia, with long-term current use of insulin ([facility]) - ICD9: 250.01, 790.29, ICD10: E10.65 2. Presence of insulin pump - ICD9: V45.85, ICD10: Z96.41 (primary diagnosis) 3. Insulin pump titration - ICD9: V53.91, ICD10: Z46.81 Insulin: Humalog Plan of care: 1. HbA1C 6.5%. 2. Medication changes: CONTINUE Humalog via Tandem insulin pump. See below. Your new insulin regimen: Basal rates: - 06 1.2 599 - 1999 0.8 1999 - 1.0 Active insulin time: 5:00 hours Carbohydrate ratio: - 06 12 599 - 1999 9.5 --> change to 10 1999 - 9.5 Insulin sensitivity/correction factor: 0000 - 0600 65 0600 - 1400 71 --> change to 80 1400 - 0000 71 Blood glucose target: 110 4. Continue Dexcom G6. 5. Answered all questions. 6. Educated patient on therapeutic lifestyle changes. 7. Patient verbalized understanding of all the above instructions. 8. Patient has multiple other questions, all of which are answered. 9. Has Rx for Baqsimi 4. Class 1 obesity with serious comorbidity and body mass index (BMI) of 30.0 to 30.9 in adult, unspecified obesity type - ICD9: 278.00, V85.30, ICD10: E66.9, Z68.30 - Weight stable. - Last 2 Encounter Wt Readings: Date: Wt: 08/29/2023 89.8 kg (198 lb) 05/25/2023 88.5 kg (195 lb) - We reviewed diet and exercise goals. Follow up: Return in about 3 months (around 11/29/2023) for Diabetes follow-up. Adeola Bronson CNP 08/29/2023 3:49 PM documented in this encounter [facility] 08-24-2023 Telephone encounter Note Pharmacy interfaced requesting the following refill. Requested Prescriptions Pending Prescriptions Disp Refills insulin lispro (HUMALOG U-100 INSULIN) 100 unit/mL injection [Pharmacy Med Name: HUMALOG 100 UNIT/ML VIAL] 30 mL 1 Sig: FOR USE IN INSULIN PUMP, USING ABOUT 75 UNITS PER DAY Patient last appointment: 05/25/2023 Next Appointment: 08/29/2023 Patient Phone numbers: [phone] (home) [phone] (work) Request is for script(s) to be escript to pharmacy. Shoshana Yates LPN [facility] 08-24-2023 Miscellaneous Notes Pharmacy interfaced requesting the following refill. Requested Prescriptions Pending Prescriptions Disp Refills insulin lispro (HUMALOG U-100 INSULIN) 100 unit/mL injection [Pharmacy Med Name: HUMALOG 100 UNIT/ML VIAL] 30 mL 1 Sig: FOR USE IN INSULIN PUMP, USING ABOUT 75 UNITS PER DAY Patient last appointment: 05/25/2023 Next Appointment: 08/29/2023 Patient Phone numbers: [phone] (home) [phone] (work) Request is for script(s) to be escript to pharmacy. Shoshana Yates LPN documented in this encounter [facility] 08-14-2023 Telephone encounter Note Pharmacy interfaced requesting the following refill. Requested Prescriptions Pending Prescriptions Disp Refills insulin lispro (HUMALOG U-100 INSULIN) 100 unit/mL injection [Pharmacy Med Name: HUMALOG 100 UN/ML 10 ML VIAL] Patient last appointment: 05/25/2023 Next Appointment: 08/29/2023 Patient Phone numbers: [phone] (home) [phone] (work) Request is for script(s) to be escript to pharmacy. Mike Johnson CMA [facility] 08-14-2023 Miscellaneous Notes Pharmacy interfaced requesting the following refill. Requested Prescriptions Pending Prescriptions Disp Refills insulin lispro (HUMALOG U-100 INSULIN) 100 unit/mL injection [Pharmacy Med Name: HUMALOG 100 UN/ML 10 ML VIAL] Patient last appointment: 05/25/2023 Next Appointment: 08/29/2023 Patient Phone numbers: [phone] (home) [phone] (work) Request is for script(s) to be escript to pharmacy. Mike Johnson CMA documented in this encounter [facility] 08-14-2023 Telephone encounter Note Pharmacy interfaced requesting the following refill. Requested Prescriptions Pending Prescriptions Disp Refills insulin lispro (HUMALOG U-100 INSULIN) 100 unit/mL injection [Pharmacy Med Name: HUMALOG 100 UN/ML 10 ML VIAL] 30 mL 0 Sig: To be filled by Provider Patient last appointment: 05/25/2023 Next Appointment: 08/29/2023 Patient Phone numbers: [phone] (home) [phone] (work) Request is for script(s) to be escript to pharmacy. Shoshana Yates LPN [facility] 08-14-2023 Miscellaneous Notes Pharmacy interfaced requesting the following refill. Requested Prescriptions Pending Prescriptions Disp Refills insulin lispro (HUMALOG U-100 INSULIN) 100 unit/mL injection [Pharmacy Med Name: HUMALOG 100 UN/ML 10 ML VIAL] 30 mL 0 Sig: To be filled by Provider Patient last appointment: 05/25/2023 Next Appointment: 08/29/2023 Patient Phone numbers: [phone] (home) [phone] (work) Request is for script(s) to be escript to pharmacy. Shoshana Yates LPN documented in this encounter [facility] 07-03-2023 Miscellaneous Notes Pharmacy interfaced requesting the following refill. Requested Prescriptions Pending Prescriptions Disp Refills DEXCOM G7 SENSOR verna 9 Each 3 Si Each every 10 days. Patient last appointment: 05/25/2023 Next Appointment: 08/29/2023 Patient Phone numbers: [phone] (home) [phone] (work) Request is for script(s) to be escript to pharmacy. Shoshana Yates LPN documented in this encounter [facility] 05-31-2023 History of Present illness Narrative Subjective Patient ID: Bonnie Quinteros is a 37 y.o. male who presents for Annual Exam. HPI DM MORE SWEETS SEES ENDO URINE IS GOOD VACCINES DONE NO HEART SX VISION IS GOOD Review of Systems Constitutional: Negative for activity change, appetite change, chills, diaphoresis, fatigue, fever and unexpected weight change. HENT: Negative. Eyes: Negative for photophobia, pain, discharge, redness, itching and visual disturbance. Respiratory: Negative for apnea, cough, choking, chest tightness, shortness of breath, wheezing and stridor. Cardiovascular: Negative for chest pain, palpitations and leg swelling. Gastrointestinal: Negative. Endocrine: Negative. Genitourinary: Negative. Musculoskeletal: Negative for arthralgias. Skin: Negative. Allergic/Immunologic: Negative. Neurological: Negative for dizziness, facial asymmetry, light-headedness, numbness and headaches. Hematological: Negative. Psychiatric/Behavioral: Negative. Objective BP 116/78 Pulse 76 Temp 36.6 C (97.9 F) Ht 1.702 m (5' 7 ) Wt 88.9 kg (196 lb) BMI 30.70 kg/m Physical Exam Constitutional: Appearance: Normal appearance. HENT: Head: Normocephalic and atraumatic. Right Ear: Tympanic membrane normal. Left Ear: Tympanic membrane normal. Nose: Nose normal. Eyes: Extraocular Movements: Extraocular movements intact. Conjunctiva/sclera: Conjunctivae normal. Pupils: Pupils are equal, round, and reactive to light. Cardiovascular: Rate and Rhythm: Normal rate and regular rhythm. Pulses: Normal pulses. Heart sounds: Normal heart sounds. Pulmonary: Effort: Pulmonary effort is normal. Breath sounds: Normal breath sounds. Abdominal: General: Abdomen is flat. Bowel sounds are normal. Palpations: Abdomen is soft. Genitourinary: Penis: Normal. Testes: Normal. Prostate: Normal. Musculoskeletal: General: Normal range of motion. Cervical back: Normal range of motion and neck supple. Skin: General: Skin is warm and dry. Neurological: General: No focal deficit present. Mental Status: Mental status is at baseline. Psychiatric: Mood and Affect: Mood normal. Thought Content: Thought content normal. Judgment: Judgment normal. Assessment/Plan Diagnoses and all orders for this visit: Encounter for routine history and physical examination of adult - Urinalysis with Reflex Culture and Microscopic Type 2 diabetes mellitus without complication, without long-term current use of insulin ([facility]) Comments: SEES ENDO Orders: - Urinalysis with Reflex Culture and Microscopic Depression, unspecified depression type Comments: GOOD Orders: - Urinalysis with Reflex Culture and Microscopic Wellness examination - Comprehensive Metabolic Panel; Future - Urinalysis with Reflex Culture and Microscopic - CBC; Future Prostate cancer screening - Prostate Specific Antigen, Screen; Future - Urinalysis with Reflex Culture and Microscopic documented in this encounter [facility] Work Phone: 05-25-2023 Note HNO ID: [id number] Author: ADEOLA BRONSON APRN.[employer] Service: ? Author Type: Nurse Practitioner Type: Progress Notes Filed: 05/25/2023 15:16 Note Text: Subjective Bonnie Quinteros is a 37 year old male who presents for diabetes management. Timeline: Diagnosed with type 1 diabetes 10/2019. Established care with endocrinology 11/2019. Current medications for diabetes: Humalog via Tandem insulin pump Current pump settings: Basal rates: 0000 - 0600 1.2 0600 - 2000 0.8 2000 - 0000 1.0 Active insulin time: 5 hours Carbohydrate ratio: 0000 - 0600 12 0600 - 2000 9.5 2000 - 0000 9.5 Insulin sensitivity/correction factor: 0000 - 0600 65 0600 - 1400 71 1400 - 0000 71 Blood glucose target: 110 Today's visit: Patient presents for management of his diabetes. Pump is downloaded today: TIR: 85% High: 10% Low: 4% Patterns show hypoglycemia in the afternoon during and after exercise. He has no complaints or concerns today. 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 Diet: Typical breakfast: Sausage, bread, and eggs. Typical lunch: Salad with raisins and chicken. Typical dinner: Variable. Sweet potatoes, vegetables, chicken. Proficient in counting carbs. Exercise/activity: Walking. Denies frequent periods of hypoglycemia. Patient verbalized understanding of the signs and symptoms of hypoglycemia and its treatment options. Important Diabetes Lab History: HBA1C: 01/2020 6.4%. 06/2020 7.1%. 10/2020 6.9%. 04/2021 8.0%. 07/2021 7.7%. 11/2021 6.9%. 02/2022 6.6%. 05/2022 6.4%. 08/2022 6.6%. 11/2022 7.2%. 02/2023 6.6%. 05/2023 6.9%. Thyroid Function Testin01/2021 TSH 1.390, T4 1.1. 05/2022 TSH 1.190, T4 1.1. 04/2023 TSH 2.00, T4 0.96. Renal Function Testin10/2019 creatinine 0.7, GFR >60. 01/2021 creatinine 0.89, GFR >60. 05/2022 creatinine 0.88, GFR >60. 04/2023 creatinine 0.82, GFR >60. Urine for Microalbumin: 01/2021 orders placed. 05/2022 orders placed. 04/2023 Microalbumin : creatinine ratio 10. Lipid Profile: 01/2021 Cholesterol 178, triglycerides 37, HDL 79, LDL 191, VLDL 7. 05/2022 Cholesterol 189, triglycerides 37, HDL 86, LDL 96, VLDL 7. 04/2023 Cholesterol 204, triglycerides 53, HDL 88, LDL 105, VLDL 11. Liver Profile: 10/2019 AST 97, ALT 10, alk phos 97, total bili 0.4. 01/2021 AST 14, ALT 15, alk phos 56, total bili 0.4. 05/2022 AST 27, ALT 23, alk phos 84, total bili 0.5. 04/2023 AST 49, ALT 36, alk phos 86, total bili 0.5. C-peptide: 02/2020: 1.19 (0.8-3.9), glucose 108. 01/2021 0.3, glucose 122. Glutamic acid decarboxylase AB: 02/2020: POSITIVE >250 (<5.1). 01/2021 POSITIVE >120. Insulin antibody: 02/2020 <0.4 (<0.4). Important Diabetes Maintenance: Eye Exam: 10/19/2020 see scanned documents. 10/12/2021 see scanned documents. 10/14/2022 see scanned docs. Educated on importance of annual dilated eye exams. Instructed to fax me results. Diabetes Pertinent negatives for hypoglycemia include no dizziness, headaches, nervousness/anxiousness, seizures or tremors. Pertinent negatives for diabetes include no blurred vision, no chest pain, no polydipsia, no weakness and no weight loss. Review of Systems Constitutional: Negative for chills, fever, malaise/fatigue and weight loss. HENT: Negative for ear pain, hearing loss, nosebleeds and sore throat. Eyes: Negative for blurred vision and double vision. Respiratory: Negative for cough, hemoptysis, sputum production, shortness of breath and wheezing. Cardiovascular: Negative for chest pain, palpitations and leg swelling. Gastrointestinal: Negative for abdominal pain, blood in stool, constipation, diarrhea, heartburn, melena, nausea and vomiting. Genitourinary: Negative for dysuria, flank pain, frequency, hematuria and urgency. Musculoskeletal: Negative for back pain, falls, joint pain, myalgias and neck pain. Skin: Negative for itching and rash. Neurological: Negative for dizziness, tingling, tremors, sensory change, speech change, focal weakness, seizures, loss of consciousness, weakness and headaches. Endo/Heme/Allergies: Negative for environmental allergies and polydipsia. Does not bruise/bleed easily. Psychiatric/Behavioral: Negative for depression, hallucinations, memory loss, substance abuse and suicidal ideas. The patient is not nervous/anxious and does not have insomnia. PAST MEDICAL HISTORY Diagnosis Date Depression Diabetes mellitus type 1 (HCC) 10/17/2019 [place] (obstructive sleep apnea) PAST SURGICAL HISTORY Procedure Laterality Date PAST SURGICAL HISTORY OF wisdom teeth TESTICULAR BIOPSY PREP 02/2022 FAMILY HISTORY Problem Relation Age of Onset Thyroid Mother Social History Tobacco Use Smoking status: Former Types: Cigarettes Quit date: 03/24/2000 Years since quittin.1 Smokeless tobacco: Never Vaping Use Vaping Use: Some days Substances: THC Substance Use Topics Alcohol use: Yes Comment: rare wine Drug use: Yes Types: Marijuana Comment: daily Curr (more content not included)... [facility] 05-25-2023 History of Present illness Narrative Subjective Bonnie Quinteros is a 37 year old male who presents for diabetes management. Timeline: Diagnosed with type 1 diabetes 10/2019. Established care with endocrinology 11/2019. Current medications for diabetes: Humalog via Tandem insulin pump Current pump settings: Basal rates: 0000 - 0600 1.2 0600 - 2000 0.8 1999 - 1.0 Active insulin time: 5 hours Carbohydrate ratio: 0000 - 0600 12 0600 - 2000 9.5 2000 - 0000 9.5 Insulin sensitivity/correction factor: 0000 - 0600 65 0600 - 1400 71 1400 - 0000 71 Blood glucose target: 110 Today's visit: Patient presents for management of his diabetes. Pump is downloaded today: TIR: 85% High: 10% Low: 4% Patterns show hypoglycemia in the afternoon during and after exercise. He has no complaints or concerns today. 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 Diet: Typical breakfast: Sausage, bread, and eggs. Typical lunch: Salad with raisins and chicken. Typical dinner: Variable. Sweet potatoes, vegetables, chicken. Proficient in counting carbs. Exercise/activity: Walking. Denies frequent periods of hypoglycemia. Patient verbalized understanding of the signs and symptoms of hypoglycemia and its treatment options. Important Diabetes Lab History: HBA1C: 01/2020 6.4%. 06/2020 7.1%. 10/2020 6.9%. 04/2021 8.0%. 07/2021 7.7%. 11/2021 6.9%. 02/2022 6.6%. 05/2022 6.4%. 08/2022 6.6%. 11/2022 7.2%. 02/2023 6.6%. 05/2023 6.9%. Thyroid Function Testin01/2021 TSH 1.390, T4 1.1. 05/2022 TSH 1.190, T4 1.1. 04/2023 TSH 2.00, T4 0.96. Renal Function Testin10/2019 creatinine 0.7, GFR >60. 01/2021 creatinine 0.89, GFR >60. 05/2022 creatinine 0.88, GFR >60. 04/2023 creatinine 0.82, GFR >60. Urine for Microalbumin: 01/2021 orders placed. 05/2022 orders placed. 04/2023 Microalbumin : creatinine ratio 10. Lipid Profile: 01/2021 Cholesterol 178, triglycerides 37, HDL 79, LDL 191, VLDL 7. 05/2022 Cholesterol 189, triglycerides 37, HDL 86, LDL 96, VLDL 7. 04/2023 Cholesterol 204, triglycerides 53, HDL 88, LDL 105, VLDL 11. Liver Profile: 10/2019 AST 97, ALT 10, alk phos 97, total bili 0.4. 01/2021 AST 14, ALT 15, alk phos 56, total bili 0.4. 05/2022 AST 27, ALT 23, alk phos 84, total bili 0.5. 04/2023 AST 49, ALT 36, alk phos 86, total bili 0.5. C-peptide: 02/2020: 1.19 (0.8-3.9), glucose 108. 01/2021 0.3, glucose 122. Glutamic acid decarboxylase AB: 02/2020: POSITIVE >250 (<5.1). 01/2021 POSITIVE >120. Insulin antibody: 02/2020 <0.4 (<0.4). Important Diabetes Maintenance: Eye Exam: 10/19/2020 see scanned documents. 10/12/2021 see scanned documents. 10/14/2022 see scanned docs. Educated on importance of annual dilated eye exams. Instructed to fax me results. Diabetes Pertinent negatives for hypoglycemia include no dizziness, headaches, nervousness/anxiousness, seizures or tremors. Pertinent negatives for diabetes include no blurred vision, no chest pain, no polydipsia, no weakness and no weight loss. Review of Systems Constitutional: Negative for chills, fever, malaise/fatigue and weight loss. HENT: Negative for ear pain, hearing loss, nosebleeds and sore throat. Eyes: Negative for blurred vision and double vision. Respiratory: Negative for cough, hemoptysis, sputum production, shortness of breath and wheezing. Cardiovascular: Negative for chest pain, palpitations and leg swelling. Gastrointestinal: Negative for abdominal pain, blood in stool, constipation, diarrhea, heartburn, melena, nausea and vomiting. Genitourinary: Negative for dysuria, flank pain, frequency, hematuria and urgency. Musculoskeletal: Negative for back pain, falls, joint pain, myalgias and neck pain. Skin: Negative for itching and rash. Neurological: Negative for dizziness, tingling, tremors, sensory change, speech change, focal weakness, seizures, loss of consciousness, weakness and headaches. Endo/Heme/Allergies: Negative for environmental allergies and polydipsia. Does not bruise/bleed easily. Psychiatric/Behavioral: Negative for depression, hallucinations, memory loss, substance abuse and suicidal ideas. The patient is not nervous/anxious and does not have insomnia. PAST MEDICAL HISTORY Diagnosis Date Depression Diabetes mellitus type 1 (HCC) 10/17/2019 [place] (obstructive sleep apnea) PAST SURGICAL HISTORY Procedure Laterality Date PAST SURGICAL HISTORY OF wisdom teeth TESTICULAR BIOPSY PREP 02/2022 FAMILY HISTORY Problem Relation Age of Onset Thyroid Mother Social History Tobacco Use Smoking status: Former Types: Cigarettes Quit date: 03/24/2000 Years since quittin.1 Smokeless tobacco: Never Vaping Use Vaping Use: Some days Substances: THC Substance Use Topics Alcohol use: Yes Comment: rare wine Drug use: Yes Types: Marijuana Comment: daily Current Meds insulin lispro (HUMALOG U-100 INSULIN) 100 unit/mL injection FOR USE IN INSULIN PUMP, USING ABOUT 75 UNITS PER DAY DEXCOM G6 SENSOR verna USE 1 EVERY 10 DAYS DEXCOM G6 TRANSMITTER verna 1 Each every 3 months. BD INSULIN SYRINGE ULTRA-FINE 0.3 mL 31 gauge x 5/16 USE DAILY NEEDED FOR PUMP FAILURE ACCU-CHEK GUIDE TEST STRIPS test strip TEST 4 TIMES DAILY glucagon (BAQSIMI) 3 mg/actuation nasal spray Use 1 [place] in the nose as needed. May repeat after 15 minutes using a new device if there is no response. ACCU-CHEK FASTCLIX LANCET DRUM lancets CHECK GLUCOSE FOUR TIMES A DAY alcohol swabs USE TO TEST BLOOD GLUCOSE 4 TIMES A DAY ACCU-CHEK GUIDE ME GLUCOSE MTR CHECK GLUCOSE FOUR TIMES A DAY, BEFORE MEALS AND AT BEDTIME FLUoxetine HCl 20 mg tablet Take 20 mg by mouth once daily. lamoTRIgine (LAMICTAL) 200 mg tablet Take 200 mg by mouth once daily. Objective BP 121/74 (BP Site: Right Arm, BP Position: Sitting, BP Cuff Size: Regular Adult) Pulse (!) 55 Ht 170.2 cm (5' 7 ) Wt 88.5 kg (195 lb) SpO2 96% BMI 30.54 kg/m Physical Exam HENT: Head: Normocephalic and atraumatic. Cardiovascular: Rate and Rhythm: Normal rate and regular rhythm. Pulmonary: Effort: Pulmonary effort is normal. Breath sounds: Normal breath sounds. Musculoskeletal: Cervical back: Normal range of motion and neck supple. Skin: General: Skin is warm and dry. Neurological: Mental Status: He is alert and oriented to person, place, and time. Plan ASSESSMENT/PLAN: 1. Type 1 diabetes mellitus with hyperglycemia, with long-term current use of insulin (HCC) - ICD9: 250.01, 790.29, ICD10: E10.65 2. Presence of insulin pump - ICD9: V45.85, ICD10: Z96.41 (primary diagnosis) 3. Insulin pump titration - ICD9: V53.91, ICD10: Z46.81 Insulin: Humalog Plan of care: 1. HbA1C 6.9%. 2. Medication changes: CONTINUE Humalog via Tandem insulin pump. Use Exercise Mode while exercising to avoid hypoglycemia. See below. Your new insulin regimen: Basal rates: 0000 - 0600 1.2 0600 - 1999 0.8 1999 - 1.0 Active insulin time: 5:00 hours Carbohydrate ratio: 0000 - 0600 12 0600 - 2000 9.5 2000 - 0000 9.5 Insulin sensitivity/correction factor: 0000 - 0600 65 0600 - 1400 71 1400 - 0000 71 Blood glucose target: 110 4. Continue Dexcom G6. 5. Answered all questions. 6. Educated patient on therapeutic lifestyle changes. 7. Patient verbalized understanding of all the above instructions. 8. Patient has multiple other questions, all of which are answered. 9. Has Rx for Baqsimi 4. Class 1 obesity with serious comorbidity and body mass index (BMI) of 30.0 to 30.9 in adult, unspecified obesity type - ICD9: 278.00, V85.30, ICD10: E66.9, Z68.30 - Weight stable. - Last 2 Encounter Wt Readings: Date: Wt: 05/25/2023 88.5 kg (195 lb) 03/02/2023 88.5 kg (195 lb 3.2 oz) - We reviewed diet and exercise goals. Follow up: Return in about 3 months (around 08/23/2023) for Diabetes follow-up. Adeola Bronson CNP 05/25/2023 3:04 PM documented in this encounter [facility] 03-02-2023 Note HNO ID: [id number] Author: ADEOLA BRONSON APRN.EVON Service: ? Author Type: Nurse Practitioner Type: Progress Notes Filed: 04/12/2023 12:28 Note Text: Hilda Quinteros is a 37 year old male who presents for diabetes management. Timeline: Diagnosed with type 1 diabetes 10/2019. Established care with endocrinology 11/2019. Current medications for diabetes: Humalog via Tandem insulin pump Current pump settings: Basal rates: 0000 - 0600 1.2 0600 - 1999 0.8 1999 - 1.0 Active insulin time: 5 hours Carbohydrate ratio: 0000 - 0600 12 0600 - 1999 9.5 1999 - 9.5 Insulin sensitivity/correction factor: 0000 - 0600 65 0600 - 1400 71 1400 - 0000 71 Blood glucose target: 110 Today's visit: Patient presents for management of his diabetes. Pump is downloaded today: TIR: 77% High: 15% Low: 7% Patterns show hypoglycemia in the afternoon during and after exercise. He is following with reproductive endocrinology. He has no complaints or concerns today. 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 Diet: Typical breakfast: Sausage, bread, and eggs. Typical lunch: Salad with raisins and chicken. Typical dinner: Variable. Sweet potatoes, vegetables, chicken. Proficient in counting carbs. Exercise/activity: Walking. Denies frequent periods of hypoglycemia. Patient verbalized understanding of the signs and symptoms of hypoglycemia and its treatment options. Important Diabetes Lab History: HBA1C: 01/2020 6.4%. 06/2020 7.1%. 10/2020 6.9%. 04/2021 8.0%. 07/2021 7.7%. 11/2021 6.9%. 02/2022 6.6%. 05/2022 6.4%. 08/2022 6.6%. 11/2022 7.2%. 02/2023 6.6%. Thyroid Function Testin01/2021 TSH 1.390, T4 1.1. 05/2022 TSH 1.190, T4 1.1. 04/2023 TSH 2.00, T4 0.96. Renal Function Testin10/2019 creatinine 0.7, GFR >60. 01/2021 creatinine 0.89, GFR >60. 05/2022 creatinine 0.88, GFR >60. 04/2023 creatinine 0.82, GFR >60. Urine for Microalbumin: 01/2021 orders placed. 05/2022 orders placed. 04/2023 Microalbumin : creatinine ratio 10. Lipid Profile: 01/2021 Cholesterol 178, triglycerides 37, HDL 79, LDL 191, VLDL 7. 05/2022 Cholesterol 189, triglycerides 37, HDL 86, LDL 96, VLDL 7. 04/2023 Cholesterol 204, triglycerides 53, HDL 88, LDL 105, VLDL 11. Liver Profile: 10/2019 AST 97, ALT 10, alk phos 97, total bili 0.4. 01/2021 AST 14, ALT 15, alk phos 56, total bili 0.4. 05/2022 AST 27, ALT 23, alk phos 84, total bili 0.5. 04/2023 AST 49, ALT 36, alk phos 86, total bili 0.5. C-peptide: 02/2020: 1.19 (0.8-3.9), glucose 108. 01/2021 0.3, glucose 122. Glutamic acid decarboxylase AB: 02/2020: POSITIVE >250 (<5.1). 01/2021 POSITIVE >120. Insulin antibody: 02/2020 <0.4 (<0.4). Important Diabetes Maintenance: Eye Exam: 10/19/2020 see scanned documents. 10/12/2021 see scanned documents. 10/14/2022 see scanned docs. Educated on importance of annual dilated eye exams. Instructed to fax me results. Diabetes Pertinent negatives for hypoglycemia include no dizziness, headaches, nervousness/anxiousness, seizures or tremors. Pertinent negatives for diabetes include no blurred vision, no chest pain, no polydipsia, no weakness and no weight loss. Review of Systems Constitutional: Negative for chills, fever, malaise/fatigue and weight loss. HENT: Negative for ear pain, hearing loss, nosebleeds and sore throat. Eyes: Negative for blurred vision and double vision. Respiratory: Negative for cough, hemoptysis, sputum production, shortness of breath and wheezing. Cardiovascular: Negative for chest pain, palpitations and leg swelling. Gastrointestinal: Negative for abdominal pain, blood in stool, constipation, diarrhea, heartburn, melena, nausea and vomiting. Genitourinary: Negative for dysuria, flank pain, frequency, hematuria and urgency. Musculoskeletal: Negative for back pain, falls, joint pain, myalgias and neck pain. Skin: Negative for itching and rash. Neurological: Negative for dizziness, tingling, tremors, sensory change, speech change, focal weakness, seizures, loss of consciousness, weakness and headaches. Endo/Heme/Allergies: Negative for environmental allergies and polydipsia. Does not bruise/bleed easily. Psychiatric/Behavioral: Negative for depression, hallucinations, memory loss, substance abuse and suicidal ideas. The patient is not nervous/anxious and does not have insomnia. PAST MEDICAL HISTORY Diagnosis Date Depression Diabetes mellitus type 1 (HCC) 10/17/2019 [place] (obstructive sleep apnea) PAST SURGICAL HISTORY Procedure Laterality Date PAST SURGICAL HISTORY OF wisdom teeth TESTICULAR BIOPSY PREP 02/2022 FAMILY HISTORY Problem Relation Age of Onset Thyroid Mother Social History Tobacco Use Smoking status: Former Types: Cigarettes Quit date: 03/24/2000 Years since quittin.9 Smokeless tobacco: Never Vaping Use Vaping Use: Some days Substances: THC Substance Use Topics Alcohol use: Yes Comment: rare wine Drug use: Yes Type (more content not included)... [facility] 03-02-2023 History of Present illness Narrative Subjective Bonnie Quinteros is a 37 year old male who presents for diabetes management. Timeline: Diagnosed with type 1 diabetes 10/2019. Established care with endocrinology 11/2019. Current medications for diabetes: Humalog via Tandem insulin pump Current pump settings: Basal rates: 0000 - 0600 1.2 0600 - 1999 0.8 1999 - 0000 1.0 Active insulin time: 5 hours Carbohydrate ratio: 0000 - 0600 12 0600 - 2000 9.5 2000 - 0000 9.5 Insulin sensitivity/correction factor: 0000 - 0600 65 0600 - 1400 71 1400 - 0000 71 Blood glucose target: 110 Today's visit: Patient presents for management of his diabetes. Pump is downloaded today: TIR: 77% High: 15% Low: 7% Patterns show hypoglycemia in the afternoon during and after exercise. He is following with reproductive endocrinology. He has no complaints or concerns today. 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 Diet: Typical breakfast: Sausage, bread, and eggs. Typical lunch: Salad with raisins and chicken. Typical dinner: Variable. Sweet potatoes, vegetables, chicken. Proficient in counting carbs. Exercise/activity: Walking. Denies frequent periods of hypoglycemia. Patient verbalized understanding of the signs and symptoms of hypoglycemia and its treatment options. Important Diabetes Lab History: HBA1C: 01/2020 6.4%. 06/2020 7.1%. 10/2020 6.9%. 04/2021 8.0%. 07/2021 7.7%. 11/2021 6.9%. 02/2022 6.6%. 05/2022 6.4%. 08/2022 6.6%. 11/2022 7.2%. 02/2023 6.6%. Thyroid Function Testin01/2021 TSH 1.390, T4 1.1. 05/2022 TSH 1.190, T4 1.1. Renal Function Testin10/2019 creatinine 0.7, GFR >60. 01/2021 creatinine 0.89, GFR >60. 05/2022 creatinine 0.88, GFR >60. Urine for Microalbumin: 01/2021 orders placed. 05/2022 orders placed. Lipid Profile: 01/2021 Cholesterol 178, triglycerides 37, HDL 79, LDL 191, VLDL 7. 05/2022 Cholesterol 189, triglycerides 37, HDL 86, LDL 96, VLDL 7. Liver Profile: 10/2019 AST 97, ALT 10, alk phos 97, total bili 0.4. 01/2021 AST 14, ALT 15, alk phos 56, total bili 0.4. 05/2022 AST 27, ALT 23, alk phos 84, total bili 0.5. C-peptide: 02/2020: 1.19 (0.8-3.9), glucose 108. 01/2021 0.3, glucose 122. Glutamic acid decarboxylase AB: 02/2020: POSITIVE >250 (<5.1). 01/2021 POSITIVE >120. Insulin antibody: 02/2020 <0.4 (<0.4). Important Diabetes Maintenance: Eye Exam: 10/19/2020 see scanned documents. 10/12/2021 see scanned documents. 10/14/2022 see scanned docs. Educated on importance of annual dilated eye exams. Instructed to fax me results. Diabetes Pertinent negatives for hypoglycemia include no dizziness, headaches, nervousness/anxiousness, seizures or tremors. Pertinent negatives for diabetes include no blurred vision, no chest pain, no polydipsia, no weakness and no weight loss. Review of Systems Constitutional: Negative for chills, fever, malaise/fatigue and weight loss. HENT: Negative for ear pain, hearing loss, nosebleeds and sore throat. Eyes: Negative for blurred vision and double vision. Respiratory: Negative for cough, hemoptysis, sputum production, shortness of breath and wheezing. Cardiovascular: Negative for chest pain, palpitations and leg swelling. Gastrointestinal: Negative for abdominal pain, blood in stool, constipation, diarrhea, heartburn, melena, nausea and vomiting. Genitourinary: Negative for dysuria, flank pain, frequency, hematuria and urgency. Musculoskeletal: Negative for back pain, falls, joint pain, myalgias and neck pain. Skin: Negative for itching and rash. Neurological: Negative for dizziness, tingling, tremors, sensory change, speech change, focal weakness, seizures, loss of consciousness, weakness and headaches. Endo/Heme/Allergies: Negative for environmental allergies and polydipsia. Does not bruise/bleed easily. Psychiatric/Behavioral: Negative for depression, hallucinations, memory loss, substance abuse and suicidal ideas. The patient is not nervous/anxious and does not have insomnia. PAST MEDICAL HISTORY Diagnosis Date Depression Diabetes mellitus type 1 (HCC) 10/17/2019 [place] (obstructive sleep apnea) PAST SURGICAL HISTORY Procedure Laterality Date PAST SURGICAL HISTORY OF wisdom teeth TESTICULAR BIOPSY PREP 02/2022 FAMILY HISTORY Problem Relation Age of Onset Thyroid Mother Social History Tobacco Use Smoking status: Former Types: Cigarettes Quit date: 03/24/2000 Years since quittin.9 Smokeless tobacco: Never Vaping Use Vaping Use: Some days Substances: THC Substance Use Topics Alcohol use: Yes Comment: rare wine Drug use: Yes Types: Marijuana Comment: daily Current Meds DEXCOM G6 TRANSMITTER verna 1 Each every 3 months. BD INSULIN SYRINGE ULTRA-FINE 0.3 mL 31 gauge x /16 USE DAILY NEEDED FOR PUMP FAILURE ACCU-CHEK GUIDE TEST STRIPS test strip TEST 4 TIMES DAILY insulin lispro (HUMALOG U-100 INSULIN) 100 unit/mL injection FOR USE IN INSULIN PUMP, USING ABOUT 75 UNITS PER DAY glucagon (BAQSIMI) 3 mg/actuation nasal spray Use 1 [place] in the nose as needed. May repeat after 15 minutes using a new device if there is no response. ACCU-CHEK FASTCLIX LANCET DRUM lancets CHECK GLUCOSE FOUR TIMES A DAY alcohol swabs USE TO TEST BLOOD GLUCOSE 4 TIMES A DAY ACCU-CHEK GUIDE ME GLUCOSE MTR CHECK GLUCOSE FOUR TIMES A DAY, BEFORE MEALS AND AT BEDTIME FLUoxetine HCl 20 mg tablet Take 20 mg by mouth once daily. lamoTRIgine (LAMICTAL) 200 mg tablet Take 200 mg by mouth once daily. Blood-Glucose Sensor (DEXCOM G6 SENSOR) verna USE 1 EVERY 10 DAYS Objective BP 131/80 (BP Site: Left Arm, BP Position: Sitting, BP Cuff Size: Regular Adult) Pulse (!) 58 Ht 170.2 cm (5' 7 ) Wt 88.5 kg (195 lb 3.2 oz) SpO2 98% BMI 30.57 kg/m Physical Exam HENT: Head: Normocephalic and atraumatic. Cardiovascular: Rate and Rhythm: Normal rate and regular rhythm. Pulmonary: Effort: Pulmonary effort is normal. Breath sounds: Normal breath sounds. Musculoskeletal: Cervical back: Normal range of motion and neck supple. Skin: General: Skin is warm and dry. Neurological: Mental Status: He is alert and oriented to person, place, and time. Plan ASSESSMENT/PLAN: 1. Type 1 diabetes mellitus with hyperglycemia, with long-term current use of insulin (HCC) - ICD9: 250.01, 790.29, ICD10: E10.65 2. Presence of insulin pump - ICD9: V45.85, ICD10: Z96.41 (primary diagnosis) 3. Insulin pump titration - ICD9: V53.91, ICD10: Z46.81 Insulin: Humalog Plan of care: 1. HbA1C 6.6%. 2. Medication changes: CONTINUE Humalog via Tandem insulin pump. Use Exercise Mode while exercising to avoid hypoglycemia. See below. Your new insulin regimen: Basal rates: 0000 - 0600 1.2 0600 - 2000 0.8 2000 - 0000 1.0 Active insulin time: 5:00 hours Carbohydrate ratio: 0000 - 0600 12 0600 - 2000 9.5 2000 - 0000 9.5 Insulin sensitivity/correction factor: 0000 - 0600 65 0600 - 1400 71 1400 - 0000 71 Blood glucose target: 110 4. Continue Dexcom G6. 5. Answered all questions. 6. Educated patient on therapeutic lifestyle changes. 7. Patient verbalized understanding of all the above instructions. 8. Patient has multiple other questions, all of which are answered. 9. Has Rx for Baqsimi 10. Due for labs: - TSH BLD - T4 FREE/FREE THYROX - LIPID PANEL BASIC - ALBUMIN/CREAT RATIO RND UR - COMP METABOLIC PANEL 4. Class 1 obesity with serious comorbidity and body mass index (BMI) of 30.0 to 30.9 in adult, unspecified obesity type - ICD9: 278.00, V85.30, ICD10: E66.9, Z68.30 - Weight stable - Last 2 Encounter Wt Readings: Date: Wt: 03/02/2023 88.5 kg (195 lb 3.2 oz) 11/21/2022 87.4 kg (192 lb 9.6 oz) - We reviewed diet and exercise goals. Follow up: Return in about 3 months (around 06/01/2023) for Diabetes follow-up. Adeola Bronson CNP 03/02/2023 3:54 PM documented in this encounter [facility] 11-21-2022 History of Present illness Narrative Subjective Bonnie Quinteros is a 37 year old male who presents for diabetes management. Timeline: Diagnosed with type 1 diabetes 10/2019. Established care with endocrinology 11/2019. Current medications for diabetes: Humalog via Tandem insulin pump Current pump settings: Basal rates: 0000 - 0600 1.2 0600 - 2000 0.8 2000 - 0000 1.0 Active insulin time: 5 hours Carbohydrate ratio: 0000 - 0600 12 0600 - 2000 9.5 2000 - 0000 9.5 Insulin sensitivity/correction factor: 0000 - 0600 65 0600 - 1400 71 1400 - 0000 71 Blood glucose target: 110 Today's visit: Patient presents for management of his diabetes. Pump is downloaded today: TIR: 83% High: 10% Low: 7% No patterns. He is following with reproductive endocrinology. He has no complaints or concerns today. 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 Diet: Typical breakfast: Sausage, bread, and eggs. Typical lunch: Salad with raisins and chicken. Typical dinner: Variable. Sweet potatoes, vegetables, chicken. Proficient in counting carbs. Exercise/activity: Walking. Denies frequent periods of hypoglycemia. Patient verbalized understanding of the signs and symptoms of hypoglycemia and its treatment options. Important Diabetes Lab History: HBA1C: 01/2020 6.4%. 06/2020 7.1%. 10/2020 6.9%. 04/2021 8.0%. 07/2021 7.7%. 11/2021 6.9%. 02/2022 6.6%. 05/2022 6.4%. 08/2022 6.6%. 11/2022 7.2%. Thyroid Function Testin01/2021 TSH 1.390, T4 1.1. 05/2022 TSH 1.190, T4 1.1. Renal Function Testin10/2019 creatinine 0.7, GFR >60. 01/2021 creatinine 0.89, GFR >60. 05/2022 creatinine 0.88, GFR >60. Urine for Microalbumin: 01/2021 orders placed. 05/2022 orders placed. Lipid Profile: 01/2021 Cholesterol 178, triglycerides 37, HDL 79, LDL 191, VLDL 7. 05/2022 Cholesterol 189, triglycerides 37, HDL 86, LDL 96, VLDL 7. Liver Profile: 10/2019 AST 97, ALT 10, alk phos 97, total bili 0.4. 01/2021 AST 14, ALT 15, alk phos 56, total bili 0.4. 05/2022 AST 27, ALT 23, alk phos 84, total bili 0.5. C-peptide: 02/2020: 1.19 (0.8-3.9), glucose 108. 01/2021 0.3, glucose 122. Glutamic acid decarboxylase AB: 02/2020: POSITIVE >250 (<5.1). 01/2021 POSITIVE >120. Insulin antibody: 02/2020 <0.4 (<0.4). Important Diabetes Maintenance: Eye Exam: 10/19/2020 see scanned documents. 10/12/2021 see scanned documents. 10/14/2022 see scanned docs. Educated on importance of annual dilated eye exams. Instructed to fax me results. Diabetes Pertinent negatives for hypoglycemia include no dizziness, headaches, nervousness/anxiousness, seizures or tremors. Pertinent negatives for diabetes include no blurred vision, no chest pain, no polydipsia, no weakness and no weight loss. Review of Systems Constitutional: Negative for chills, fever, malaise/fatigue and weight loss. HENT: Negative for ear pain, hearing loss, nosebleeds and sore throat. Eyes: Negative for blurred vision and double vision. Respiratory: Negative for cough, hemoptysis, sputum production, shortness of breath and wheezing. Cardiovascular: Negative for chest pain, palpitations and leg swelling. Gastrointestinal: Negative for abdominal pain, blood in stool, constipation, diarrhea, heartburn, melena, nausea and vomiting. Genitourinary: Negative for dysuria, flank pain, frequency, hematuria and urgency. Musculoskeletal: Negative for back pain, falls, joint pain, myalgias and neck pain. Skin: Negative for itching and rash. Neurological: Negative for dizziness, tingling, tremors, sensory change, speech change, focal weakness, seizures, loss of consciousness, weakness and headaches. Endo/Heme/Allergies: Negative for environmental allergies and polydipsia. Does not bruise/bleed easily. Psychiatric/Behavioral: Negative for depression, hallucinations, memory loss, substance abuse and suicidal ideas. The patient is not nervous/anxious and does not have insomnia. PAST MEDICAL HISTORY Diagnosis Date Depression Diabetes mellitus type 1 (HCC) 10/17/2019 [place] (obstructive sleep apnea) PAST SURGICAL HISTORY Procedure Laterality Date PAST SURGICAL HISTORY OF wisdom teeth TESTICULAR BIOPSY PREP 02/2022 FAMILY HISTORY Problem Relation Age of Onset Thyroid Mother Social History Tobacco Use Smoking status: Former Types: Cigarettes Quit date: 03/24/2000 Years since quittin.6 Smokeless tobacco: Never Vaping Use Vaping Use: Some days Substances: THC Substance Use Topics Alcohol use: Yes Comment: rare wine Drug use: Yes Types: Marijuana Comment: daily Current Meds insulin lispro (HUMALOG U-100 INSULIN) 100 unit/mL injection FOR USE IN INSULIN PUMP, USING ABOUT 75 UNITS PER DAY glucagon (BAQSIMI) 3 mg/actuation nasal spray Use 1 [place] in the nose as needed. May repeat after 15 minutes using a new device if there is no response. ACCU-CHEK FASTCLIX LANCET DRUM lancets CHECK GLUCOSE FOUR TIMES A DAY alcohol swabs USE TO TEST BLOOD GLUCOSE 4 TIMES A DAY ACCU-CHEK GUIDE ME GLUCOSE MTR CHECK GLUCOSE FOUR TIMES A DAY, BEFORE MEALS AND AT BEDTIME FLUoxetine HCl 20 mg tablet Take 20 mg by mouth once daily. lamoTRIgine (LAMICTAL) 200 mg tablet Take 200 mg by mouth once daily. Blood-Glucose Sensor (DEXCOM G6 SENSOR) verna USE 1 EVERY 10 DAYS DEXCOM G6 TRANSMITTER verna 1 Each every 3 months. BD INSULIN SYRINGE ULTRA-FINE 0.3 mL 31 gauge x 5/16 USE DAILY NEEDED FOR PUMP FAILURE ACCU-CHEK GUIDE TEST STRIPS test strip TEST 4 TIMES DAILY Objective BP 112/72 Pulse (!) 58 Ht 170.2 cm (5' 7 ) Wt 87.4 kg (192 lb 9.6 oz) SpO2 97% BMI 30.17 kg/m Physical Exam HENT: Head: Normocephalic and atraumatic. Cardiovascular: Rate and Rhythm: Normal rate and regular rhythm. Pulmonary: Effort: Pulmonary effort is normal. Breath sounds: Normal breath sounds. Musculoskeletal: Cervical back: Normal range of motion and neck supple. Skin: General: Skin is warm and dry. Neurological: Mental Status: He is alert and oriented to person, place, and time. Plan ASSESSMENT/PLAN: 1. Type 1 diabetes mellitus with hyperglycemia, with long-term current use of insulin (HCC) - ICD9: 250.01, 790.29, ICD10: E10.65 2. Presence of insulin pump - ICD9: V45.85, ICD10: Z96.41 (primary diagnosis) 3. Insulin pump titration - ICD9: V53.91, ICD10: Z46.81 Insulin: Humalog Plan of care: 1. HbA1C 7.2%. 2. Medication changes: CONTINUE Humalog via Tandem insulin pump. See below. Your new insulin regimen: Basal rates: 0000 - 0600 1.2 0600 - 1999 0.8 1999 - 0000 1.0 Active insulin time: 5:00 hours Carbohydrate ratio: 0000 - 0600 12 0600 - 2000 9.5 2000 - 0000 9.5 Insulin sensitivity/correction factor: 0000 - 0600 65 0600 - 1400 71 1400 - 0000 71 Blood glucose target: 110 4. Continue Dexcom G6. 5. Answered all questions. 6. Educated patient on therapeutic lifestyle changes. 7. Patient verbalized understanding of all the above instructions. 8. Patient has multiple other questions, all of which are answered. 9. Has Rx for Baqsimi 4. Class 1 obesity with serious comorbidity and body mass index (BMI) of 30.0 to 30.9 in adult, unspecified obesity type - ICD9: 278.00, V85.30, ICD10: E66.9, Z68.30 - Weight stable. - Last 2 Encounter Wt Readings: Date: Wt: 11/21/2022 87.4 kg (192 lb 9.6 oz) 08/22/2022 87.7 kg (193 lb 6.4 oz) - We reviewed diet and exercise goals. Follow up: Return in about 3 months (around 02/21/2023) for Diabetes follow-up. Adeola Bronson CNP 11/21/2022 3:17 PM documented in this encounter [facility] 10-12-2022 Miscellaneous Notes Pharmacy faxed requesting the following refill. Requested Prescriptions Pending Prescriptions Disp Refills insulin lispro (HUMALOG U-100 INSULIN) 100 unit/mL injection 30 mL 3 Sig: FOR USE IN INSULIN PUMP, USING ABOUT 75 UNITS PER DAY Patient last appointment: 08/22/2022 Next Appointment: 11/21/2022 Patient Phone numbers: [phone] (home) [phone] (work) Request is for script(s) to be escript to pharmacy. Shoshana Yates LPN documented in this encounter [facility] 09-15-2022 Miscellaneous Notes Good Morning, I did speak with Adeola's nurse and she advised that you get your labs done a week before your next visit. Thank you. Lexus Self September 15, 2022 11:24 AM documented in this encounter [facility] 05-31-2022 Miscellaneous Notes Pt notified of adeola's message below and pt voiced understanding Shoshana Yates LPN ----- Message from Adeola Bronson APRN.EVON sent at 05/31/2022 9:44 AM EST ----- Please call patient and let them know labs have been reviewed. Kidney, liver, and thyroid function within normal limits. Lipid panel within normal limits. Nice work. Thank you. Adeola Bronson APRN.EVON documented in this encounter [facility] 05-24-2022 Miscellaneous Notes Pt notified of adeola's message below and tp voiced understanding Shoshana Yates LPN Orders placed will need to be done fasting. Thank you. Adeola Bronson APRN.CNP Spoke with [facility] and they have no labs on patient. Spoke with pt and he is asking for new lab orders to be placed to go to any [facility] Shoshana Yates LPN Please request most recent lab results from [facility]. Thank you. Adeola Bronson APRN.EVON documented in this encounter [facility] 05-23-2022 History of Present illness Narrative Subjective Bonnie Quinteros is a 36 year old male who presents for diabetes management. Timeline: Diagnosed with type 1 diabetes 10/2019. Established care with endocrinology 11/2019. Current medications for diabetes: Humalog via Tandem insulin pump Current pump settings: Basal rates: 0000 - 0600 1.2 0600 - 2000 0.8 2000 - 0000 1.0 Active insulin time: 5 hours Carbohydrate ratio: 0000 - 0600 12 0600 - 2000 9.5 2000 - 0000 9.5 Insulin sensitivity/correction factor: 0000 - 0600 60 0600 - 1400 71 1400 - 0000 71 Blood glucose target: 110 Today's visit: Patient presents for management of his diabetes. Pump is downloaded today: TIR: 83% High: 10% Low: 7% No patterns. He is following with reproductive endocrinology. He has no complaints or concerns today. 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 Diet: Typical breakfast: Sausage, bread, and eggs. Typical lunch: Salad with raisins and chicken. Typical dinner: Variable. Sweet potatoes, vegetables, chicken. Proficient in counting carbs. Exercise/activity: Walking. Denies frequent periods of hypoglycemia. Patient verbalized understanding of the signs and symptoms of hypoglycemia and its treatment options. Important Diabetes Lab History: HBA1C: 01/2020 6.4%. 06/2020 7.1%. 10/2020 6.9%. 04/2021 8.0%. 07/2021 7.7%. 11/2021 6.9%. 02/2022 6.6%. 05/2022 6.4%. Thyroid Function Testin01/2021 TSH 1.390, T4 1.1. Renal Function Testin10/2019 creatinine 0.7, GFR >60. 01/2021 creatinine 0.89, GFR >60. Urine for Microalbumin: 01/2021 orders placed. Lipid Profile: 01/2021 Cholesterol 178, triglycerides 37, HDL 79, LDL 191, VLDL 7. Liver Profile: 10/2019 AST 97, ALT 10, alk phos 97, total bili 0.4. 01/2021 AST 14, ALT 15, alk phos 56, total bili 0.4. C-peptide: 02/2020: 1.19 (0.8-3.9), glucose 108. 01/2021 0.3, glucose 122. Glutamic acid decarboxylase AB: 02/2020: POSITIVE >250 (<5.1). 01/2021 POSITIVE >120. Insulin antibody: 02/2020 <0.4 (<0.4). Important Diabetes Maintenance: Eye Exam: 10/19/2020 see scanned documents. 10/12/2021 see scanned documents. Educated on importance of annual dilated eye exams. Instructed to fax me results. Diabetes Pertinent negatives for hypoglycemia include no dizziness, headaches, nervousness/anxiousness, seizures or tremors. Pertinent negatives for diabetes include no blurred vision, no chest pain, no polydipsia, no weakness and no weight loss. Review of Systems Constitutional: Negative for chills, fever, malaise/fatigue and weight loss. HENT: Negative for ear pain, hearing loss, nosebleeds and sore throat. Eyes: Negative for blurred vision and double vision. Respiratory: Negative for cough, hemoptysis, sputum production, shortness of breath and wheezing. Cardiovascular: Negative for chest pain, palpitations and leg swelling. Gastrointestinal: Negative for abdominal pain, blood in stool, constipation, diarrhea, heartburn, melena, nausea and vomiting. Genitourinary: Negative for dysuria, flank pain, frequency, hematuria and urgency. Musculoskeletal: Negative for back pain, falls, joint pain, myalgias and neck pain. Skin: Negative for itching and rash. Neurological: Negative for dizziness, tingling, tremors, sensory change, speech change, focal weakness, seizures, loss of consciousness, weakness and headaches. Endo/Heme/Allergies: Negative for environmental allergies and polydipsia. Does not bruise/bleed easily. Psychiatric/Behavioral: Negative for depression, hallucinations, memory loss, substance abuse and suicidal ideas. The patient is not nervous/anxious and does not have insomnia. PAST MEDICAL HISTORY Diagnosis Date Depression Diabetes mellitus type 1 (HCC) 10/17/2019 [place]COE (obstructive sleep apnea) PAST SURGICAL HISTORY Procedure Laterality Date PAST SURGICAL HISTORY OF wisdom teeth TESTICULAR BIOPSY PREP 02/2022 FAMILY HISTORY Problem Relation Age of Onset Thyroid Mother Social History Tobacco Use Smoking status: Former Types: Cigarettes Quit date: 03/24/2000 Years since quittin.1 Smokeless tobacco: Never Vaping Use Vaping Use: Some days Substances: THC Substance Use Topics Alcohol use: Yes Comment: rare wine Drug use: Yes Types: Marijuana Comment: daily Current Meds DEXCOM G6 SENSOR verna USE 1 EVERY 10 DAYS ibuprofen (MOTRIN) 800 mg tablet Take 1 tablet by mouth every 8 hours as needed for pain. insulin lispro (HUMALOG U-100 INSULIN) 100 unit/mL injection FOR USE IN INSULIN PUMP, USING ABOUT 75 UNITS PER DAY Blood-Glucose Transmitter (DEXCOM G6 TRANSMITTER) verna 1 Each every 3 months. ACCU-CHEK FASTCLIX LANCET DRUM lancets CHECK GLUCOSE FOUR TIMES A DAY BD INSULIN SYRINGE ULTRA-FINE 0.3 mL 31 gauge x 5/16 USE DAILY NEEDED FOR PUMP FAILURE glucagon (GLUCAGON EMERGENCY KIT, HUMAN,) 1 mg injection Inject 1 mg subcutaneously one time only for 1 dose. alcohol swabs USE TO TEST BLOOD GLUCOSE 4 TIMES A DAY ACCU-CHEK GUIDE ME GLUCOSE MTR CHECK GLUCOSE FOUR TIMES A DAY, BEFORE MEALS AND AT BEDTIME FLUoxetine HCl 20 mg tablet Take 20 mg by mouth once daily. lamoTRIgine (LAMICTAL) 200 mg tablet Take 200 mg by mouth once daily. ACCU-CHEK GUIDE TEST STRIPS test strip TEST 4 TIMES DAILY Objective BP 136/80 Pulse (!) 58 Ht 170.2 cm (5' 7 ) Wt 87.2 kg (192 lb 3.2 oz) SpO2 97% BMI 30.10 kg/m Physical Exam HENT: Head: Normocephalic and atraumatic. Cardiovascular: Rate and Rhythm: Normal rate and regular rhythm. Pulses: Dorsalis pedis pulses are 2+ on the right side and 2+ on the left side. Posterior tibial pulses are 2+ on the right side and 2+ on the left side. Pulmonary: Effort: Pulmonary effort is normal. Breath sounds: Normal breath sounds. Musculoskeletal: Cervical back: Normal range of motion and neck supple. Skin: General: Skin is warm and dry. Comments: Feet:Shoes and socks removed, No deformities, ulcers, calluses, normal distal pulses, and sensitive to 10 gm monofilament in all areas Neurological: Mental Status: He is alert and oriented to person, place, and time. Plan ASSESSMENT/PLAN: 1. Type 1 diabetes mellitus with hyperglycemia, with long-term current use of insulin ([facility]) - ICD9: 250.01, 790.29, ICD10: E10.65 2. Presence of insulin pump - ICD9: V45.85, ICD10: Z96.41 (primary diagnosis) 3. Insulin pump titration - ICD9: V53.91, ICD10: Z46.81 Insulin: Humalog Plan of care: 1. HbA1C 6.4%. 2. Medication changes: CONTINUE Humalog via Tandem insulin pump. See below. Your new insulin regimen: Basal rates: 0000 - 0600 1.2 0600 - 1999 0.8 1999 - 1.0 Active insulin time: 5:00 hours Carbohydrate ratio: 0000 - 0600 12 0600 - 2000 9.5 2000 - 0000 9.5 Insulin sensitivity/correction factor: 0000 - 0600 60 0600 - 1400 71 1400 - 0000 71 Blood glucose target: 110 4. Continue Dexcom G6. 5. Answered all questions. 6. Educated patient on therapeutic lifestyle changes. 7. Patient verbalized understanding of all the above instructions. 8. Patient has multiple other questions, all of which are answered. 4. Class 1 obesity with serious comorbidity and body mass index (BMI) of 30.0 to 30.9 in adult, unspecified obesity type - ICD9: 278.00, V85.30, ICD10: E66.9, Z68.30 - Weight increasing. - Last 2 Encounter Wt Readings: Date: Wt: 05/23/2022 87.2 kg (192 lb 3.2 oz) 02/17/2022 85.5 kg (188 lb 9.6 oz) - We reviewed diet and exercise goals. Follow up: Return in about 3 months (around 08/20/2022) for Diabetes follow-up. Adeola Bronson CNP 05/23/2022 3:03 PM documented in this encounter [facility] 05-03-2022 Miscellaneous Notes Aneesh: 02/17/2022 Nov: 05/23/2022 Pharmacy electronically requesting refills as follows: Requested Prescriptions Pending Prescriptions Disp Refills DEXCOM G6 SENSOR verna [Pharmacy Med Name: DEXCOM G6 SENSOR] 3 Each 11 Sig: USE 1 EVERY 10 DAYS Please review and advise. Mike Johnson CMA documented in this encounter [facility] 02-21-2022 Miscellaneous Notes S/p R testis biopsy Path - [facility]CO Plan: Pt will discuss with Discussed very low likelihood of finding viable sperm during mTESE Bibiana Melgar MD documented in this encounter [facility] 02-17-2022 History of Present illness Narrative Subjective Bonnie Quinteros is a 36 year old male who presents for diabetes management. Timeline: Diagnosed with type 1 diabetes 10/2019. Established care with endocrinology 11/2019. Current medications for diabetes: Humalog via Tandem insulin pump Current pump settings: Basal rates: 0000 - 0600 1.2 0600 - 2000 0.8 1999 - 0000 1.0 Active insulin time: 5 hours Carbohydrate ratio: 0000 - 0600 12 0600 - 2000 9.5 2000 - 0000 9.5 Insulin sensitivity/correction factor: 0000 - 0600 60 0600 - 1400 71 1400 - 0000 71 Blood glucose target: 110 Today's visit: Patient presents for management of his diabetes. Pump is downloaded today: TIR: 73% High: 24% Low: 2% No patterns. He is following with reproductive endocrinology. He has no complaints or concerns today. 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 Diet: Typical breakfast: Sausage, bread, and eggs. Typical lunch: Salad with raisins and chicken. Typical dinner: Variable. Sweet potatoes, vegetables, chicken. Proficient in counting carbs. Exercise/activity: Walking. Denies frequent periods of hypoglycemia. Patient verbalized understanding of the signs and symptoms of hypoglycemia and its treatment options. Important Diabetes Lab History: HBA1C: 01/2020 6.4%. 06/2020 7.1%. 10/2020 6.9%. 04/2021 8.0%. 07/2021 7.7%. 11/2021 6.9%. 02/2022 6.6%. Thyroid Function Testin01/2021 TSH 1.390, T4 1.1. Renal Function Testin10/2019 creatinine 0.7, GFR >60. 01/2021 creatinine 0.89, GFR >60. Urine for Microalbumin: 01/2021 orders placed. Lipid Profile: 01/2021 Cholesterol 178, triglycerides 37, HDL 79, LDL 191, VLDL 7. Liver Profile: 10/2019 AST 97, ALT 10, alk phos 97, total bili 0.4. 01/2021 AST 14, ALT 15, alk phos 56, total bili 0.4. C-peptide: 02/2020: 1.19 (0.8-3.9), glucose 108. 01/2021 0.3, glucose 122. Glutamic acid decarboxylase AB: 02/2020: POSITIVE >250 (<5.1). 01/2021 POSITIVE >120. Insulin antibody: 02/2020 <0.4 (<0.4). Important Diabetes Maintenance: Eye Exam: 10/19/2020 see scanned documents. 10/12/2021 see scanned documents. Educated on importance of annual dilated eye exams. Instructed to fax me results. Diabetes Pertinent negatives for hypoglycemia include no dizziness, headaches, nervousness/anxiousness, seizures or tremors. Pertinent negatives for diabetes include no blurred vision, no chest pain, no polydipsia, no weakness and no weight loss. Review of Systems Constitutional: Negative for chills, fever, malaise/fatigue and weight loss. HENT: Negative for ear pain, hearing loss, nosebleeds and sore throat. Eyes: Negative for blurred vision and double vision. Respiratory: Negative for cough, hemoptysis, sputum production, shortness of breath and wheezing. Cardiovascular: Negative for chest pain, palpitations and leg swelling. Gastrointestinal: Negative for abdominal pain, blood in stool, constipation, diarrhea, heartburn, melena, nausea and vomiting. Genitourinary: Negative for dysuria, flank pain, frequency, hematuria and urgency. Musculoskeletal: Negative for back pain, falls, joint pain, myalgias and neck pain. Skin: Negative for itching and rash. Neurological: Negative for dizziness, tingling, tremors, sensory change, speech change, focal weakness, seizures, loss of consciousness, weakness and headaches. Endo/Heme/Allergies: Negative for environmental allergies and polydipsia. Does not bruise/bleed easily. Psychiatric/Behavioral: Negative for depression, hallucinations, memory loss, substance abuse and suicidal ideas. The patient is not nervous/anxious and does not have insomnia. PAST MEDICAL HISTORY Diagnosis Date Depression Diabetes mellitus type 1 (HCC) 10/17/2019 [place] (obstructive sleep apnea) PAST SURGICAL HISTORY Procedure Laterality Date PAST SURGICAL HISTORY OF wisdom teeth TESTICULAR BIOPSY PREP 02/2022 FAMILY HISTORY Problem Relation Age of Onset Thyroid Mother Social History Tobacco Use Smoking status: Former Types: Cigarettes Quit date: 03/24/2000 Years since quittin.9 Smokeless tobacco: Never Vaping Use Vaping Use: Some days Substances: THC Substance Use Topics Alcohol use: Yes Comment: rare wine Drug use: Yes Types: Marijuana Comment: daily Current Meds ibuprofen (MOTRIN) 800 mg tablet Take 1 tablet by mouth every 8 hours as needed for pain. insulin lispro (HUMALOG U-100 INSULIN) 100 unit/mL injection FOR USE IN INSULIN PUMP, USING ABOUT 75 UNITS PER DAY Blood-Glucose Transmitter (DEXCOM G6 TRANSMITTER) verna 1 Each every 3 months. Blood-Glucose Sensor (DEXCOM G6 SENSOR) verna 1 Each every 10 days. ACCU-CHEK FASTCLIX LANCET DRUM lancets CHECK GLUCOSE FOUR TIMES A DAY ACCU-CHEK GUIDE TEST STRIPS test strip TEST 4 TIMES DAILY BD INSULIN SYRINGE ULTRA-FINE 0.3 mL 31 gauge x 16 USE DAILY NEEDED FOR PUMP FAILURE glucagon (GLUCAGON EMERGENCY KIT, HUMAN,) 1 mg injection Inject 1 mg subcutaneously one time only for 1 dose. alcohol swabs USE TO TEST BLOOD GLUCOSE 4 TIMES A DAY ACCU-CHEK GUIDE ME GLUCOSE MTR CHECK GLUCOSE FOUR TIMES A DAY, BEFORE MEALS AND AT BEDTIME FLUoxetine HCl 20 mg tablet Take 20 mg by mouth once daily. lamoTRIgine (LAMICTAL) 200 mg tablet Take 200 mg by mouth once daily. Objective BP 120/80 Pulse 66 Ht 170.2 cm (5' 7 ) Wt 85.5 kg (188 lb 9.6 oz) SpO2 97% BMI 29.54 kg/m Physical Exam HENT: Head: Normocephalic and atraumatic. Cardiovascular: Rate and Rhythm: Normal rate and regular rhythm. Pulmonary: Effort: Pulmonary effort is normal. Breath sounds: Normal breath sounds. Musculoskeletal: Cervical back: Normal range of motion and neck supple. Skin: General: Skin is warm and dry. Neurological: Mental Status: He is alert and oriented to person, place, and time. Plan ASSESSMENT/PLAN: 1. Type 1 diabetes mellitus with hyperglycemia, with long-term current use of insulin ([facility]) - ICD9: 250.01, 790.29, ICD10: E10.65 2. Presence of insulin pump - ICD9: V45.85, ICD10: Z96.41 (primary diagnosis) 3. Insulin pump titration - ICD9: V53.91, ICD10: Z46.81 Insulin: Humalog Plan of care: 1. HbA1C 6.6%. 2. Medication changes: CONTINUE Humalog via Tandem insulin pump. See below. Your new insulin regimen: Basal rates: 0000 - 0600 1.2 0600 - 1999 0.8 1999 - 1.0 Active insulin time: 5 hours Carbohydrate ratio: 0000 - 0600 12 0600 - 2000 9.5 2000 - 0000 9.5 Insulin sensitivity/correction factor: 0000 - 0600 60 0600 - 1400 71 1400 - 0000 71 Blood glucose target: 110 4. Continue Dexcom G6. 5. Answered all questions. 6. Educated patient on therapeutic lifestyle changes. 7. Patient verbalized understanding of all the above instructions. 8. Patient has multiple other questions, all of which are answered. Follow up: Return in about 3 months (around 05/20/2022) for Diabetes follow-up. Adeola Bronson CNP 02/17/2022 2:31 PM documented in this encounter [facility] 02-15-2022 Nurse Note Vital signs stable. Dressing dry and intact. Patient up and dressed self. Discharge instructions given to and patient. documented in this encounter [facility] 02-15-2022 Surgical operation note Surgery/Procedure Date: 02/15/2022 Incision/Procedure Start Time: 1:43 PM Incision Close/Procedure End Time: 2:13 PM Surgeon(s)/Proceduralist(s) and Cutter And Presser(s): Surgeon(s) and Role: * Bibiana Melgar MD - Primary Location: [facility] Operation: Right Testicular biopsy Anesthesia: General Preoperative diagnoses: Atrophic testicle Postoperative diagnoses: SAME Operative indications: The patient is a pleasant 36 year old year-old gentleman with an atrophic testicle. The risks, benefits, alternatives of the procedure were discussed with the patient and adequate informed consent was obtained. Operative findings: 1. Atrophic testis Operative procedure: After obtaining informed consent (including a thorough discussion of the RBAPC), the patient was taken to the operating room and placed on the operating table in the supine position. SCDs were placed and activated. After induction of general anesthesia, the groin was prepped and draped in the usual sterile fashion. A time-out was performed and the patient received a pre-operative course of prophylactic IV antibiotics. A 2-cm transverse incision and the Dartos overlying the RIGHT testis was divided with sharp dissection and electrocautery. The tunica vaginalis was identified and incised revealing scant clear fluid. A 3 cm horizontally oriented incision was made near the mid pole of the testicle. Gentle traction was used to expose a wide swath of seminiferous tubules and judicious cautery was employed to maintain hemostasis. A small sample was placed in formalin and transported to the pathology for assessment of the histology. Inspection of the testicular parenchyma confirmed hemostasis. The tunical albugenia was closed in a water tight manner with a running 5-0 vicryl stitch. The tunical vaginalis and Dartos were reapproximated with running 4-0 chromic stitches and the skin edges were reapproximated with a running 4-0 chromic stitch, each in separate layers. Bacitracin, gauze and supportive underwear were applied as a dressing. The patient was awaked without incident and transported to the Postanesthesia Care Unit in stable condition. There were no intraoperative complications. Dr. Melgar was present, actively involved, and scrubbed throughout the entirety of the case. Specimen: RIGHT testis tissue for permanent histopathalogy assessment Drains: None Complications: None Accidental Puncture or Laceration: None Estimated blood loss: Less than 10cc Implanted tissues or devices: None Counts: Initial and final instruments, needles, and sponge counts correct. Bibiana Melgar MD documented in this encounter [facility] 02-15-2022 History and physical note HISTORY AND PHYSICAL EXAMINATION SERVICE DATE: 02/15/2022 SERVICE TIME: 11:38 AM PRIMARY CARE PHYSICIAN: Dominic Calloway MD REASON FOR VISIT: Bonnie Quinteros is a 36 year old male who is scheduled for Procedure(s): Testicular biopsy (N/A) at the request of Dr. Melgar for routine H&P. The patient has the following: ACTIVE PROBLEM LIST Azoospermia Type 1 Diabetes Mellitus With Hyperglycemia, With Long-Term Current Use of Insulin (Hcc) High risk medication use - insulin Hypoglycemia Due to Type 1 Diabetes Mellitus (Hcc) Subjective CHIEF COMPLAINT: Atrophic testicle [N50.0] HPI: Patient presents for the above procedure. Pt states he has had issues with infertility and they are planning to biopsy. Pt denies any frequency, urgency, dysuria, hematuria. Patient denies any other problems or concerns at this time. Risks and benefits of the procedure discussed by Surgeon and patient agreed to proceed with planned procedure. METS: Run a short distance (8.00 METs) Patient denies any CP/SOB with above activity. PAST MEDICAL HISTORY Diagnosis Date Depression Diabetes mellitus type 1 (HCC) 10/17/2019 PAST SURGICAL HISTORY Procedure Laterality Date PAST SURGICAL HISTORY OF wisdom teeth FAMILY HISTORY Problem Relation Age of Onset Thyroid Mother SOCIAL HISTORY: Social History Tobacco Use Smoking status: Former Types: Cigarettes Quit date: 03/24/2000 Years since quittin.9 Smokeless tobacco: Never Vaping Use Vaping Use: Never used Substance Use Topics Alcohol use: Not Currently Drug use: Yes Types: Marijuana Comment: daily Prior to Admission medications as of 02/15/22 1122 Medication Sig Last Dose Taking insulin lispro (HUMALOG U-100 INSULIN) 100 unit/mL injection FOR USE IN INSULIN PUMP, USING ABOUT 75 UNITS PER DAY Yes FLUoxetine HCl 20 mg tablet Take 20 mg by mouth once daily. 02/15/2022 at 0500 Yes lamoTRIgine (LAMICTAL) 200 mg tablet Take 200 mg by mouth once daily. 02/15/2022 at 0500 Yes Blood-Glucose Transmitter (DEXCOM G6 TRANSMITTER) verna 1 Each every 3 months. Blood-Glucose Sensor (DEXCOM G6 SENSOR) verna 1 Each every 10 days. ACCU-CHEK FASTCLIX LANCET DRUM lancets CHECK GLUCOSE FOUR TIMES A DAY ACCU-CHEK GUIDE TEST STRIPS test strip TEST 4 TIMES DAILY BD INSULIN SYRINGE ULTRA-FINE 0.3 mL 31 gauge x 5/16 USE DAILY NEEDED FOR PUMP FAILURE clomiPHENe (SEROPHENE) 50 mg tablet TAKE 1 CAPSULE BY MOUTH EVERY MONDAY,MONDAY,MONDAY. Patient not taking: No sig reported BD INSULIN SYRINGE 1 mL 29 gauge x 1/2 USE 1 SYRINGE DAILY Patient not taking: No sig reported glucagon (GLUCAGON EMERGENCY KIT, HUMAN,) 1 mg injection Inject 1 mg subcutaneously one time only for 1 dose. lithium carbonate (ESKALITH) 150 mg capsule Take 150 mg by mouth twice daily. Patient not taking: Reported on 11/09/2021 Insulin Syringe-Needle U-100 (INSULIN SYRINGE) 0.5 mL 29 gauge x 1/2 1 Each once daily. Patient not taking: No sig reported LANTUS SOLOSTAR U-100 INSULIN 100 unit/mL (3 mL) Inject 20 Units subcutaneously daily at bedtime. Patient not taking: No sig reported BD INSULIN PEN NEEDLE UF 31 gauge x 5/16 Inject 1 Each subcutaneously four times daily. Patient not taking: No sig reported alcohol swabs USE TO TEST BLOOD GLUCOSE 4 TIMES A DAY ACCU-CHEK GUIDE ME GLUCOSE MTR CHECK GLUCOSE FOUR TIMES A DAY, BEFORE MEALS AND AT BEDTIME No medication comments found. ALLERGIES No Known Allergies REVIEW OF SYSTEMS: PAIN ASSESSMENT: Pain Pain Level: 0 Pain Assessment: Assessment Tool: Verbal (Numeric Rating or Visual Analog Scale) General: Denies fever, chills, and unexpected weight change. Neuro: Denies dizziness and headaches. Respiratory: Denies SOB. Cardiovascular: Denies CP and palpitations. GI: Denies abdominal pain, N/V/D/C. : See HPI. Endocrine: + DM. No history of thyroid conditions. Hematology: Denies history of bleeding or clotting disorder. No known autoimmune disorders. Psych: Denies anxiety/depression. Musculoskeletal: Denies joint pain and swelling. Skin: Denies open sores and rashes. Objective PHYSICAL EXAM: VITALS: BP 110/69 Pulse 49 Temp (Src) 97.5 (Temporal Artery) Resp 18 Ht 5' 7 (1.70m) Wt 192 lb (87.1kg) SpO2 96% BMI 30.06 kg/(m^2). O2 Therapy: Room Air General: NAD. Cooperative. Skin: Skin is warm, no rashes, and no open sores. HEENT: Normocephalic. Cardiovascular: Normal S1 & S2. No murmur. Lungs: CTA Bilaterally. No respiratory distress. Abdomen: Soft. Pos BS x4quad Extremities: No edema. Neurological: Alert and oriented to person, place, and time. Pulses: radial pulses +2 Diagnostic tests reviewed for today's visit: Lab Value Units Date High Low HB No results within date range. HCT No results within date range. WBC No results within date range. PLT No results within date range. NA No results within date range. K No results within date range. GLUC No results within date range. BUN No results within date range. CREAT No results within date range. PTSEC No results within date range. INR No results within date range. APTT No results within date range. ALT No results within date range. AST No results within date range. TBILI No results within date range. TSH No results within date range. Lab Value Units Date High Low HCGQT No results within date range. UHCG No results within date range. HCG, BODY* No results within date range. Lab Value Units Date High Low ABORHD No results within date range. ABSCREEN No results within date range. Hemoglobin A1C (POCT) (%) Date Value 11/09/2021 6.9 07/12/2021 7.7 04/12/2021 8.0 10/02/2020 6.9 06/22/2020 7.1 Assessment/Plan Atrophic testicle [N50.0] Patient has the following medical conditions which may affect mendel-operative course Diabetes - BS 138 in preop. Insulin. ROSCOE - Pt does not use CPAP. Pt states he has lost a lot of weight since this diagnosis. PLAN Planned Procedure: Procedure(s): Testicular biopsy (N/A) The Following Tests/Procedures Have Been Initiated: IV start and Maintenance fluid for the procedure. ANESTHESIA FINDINGS: Significant Anesthesia Considerations: None Planned Anesthetic: General Instructions Given to Patient: Patient given verbal preop instructions and voices comprehension and compliance. SIGNATURE: EUGENE [place] PATIENT NAME: Bonnie Quinteros DATE: February 15, 2022 TIME: 11:04 AM PAGER/CONTACT #: documented in this encounter [facility] 02-11-2022 Miscellaneous Notes Placed a dexcom transmitter up front at desk in green for pt and SN is [id number] and lot number is [id number] Shoshana Yates CMA documented in this encounter [facility] 12-22-2021 History of Present illness Narrative Images from the original note were not included. [facility] UROLOGY VIRTUAL ESTABLISHED PATIENT CLINIC NOTE PATIENT INFO: Bonnie Quinteros PCP: Dominic Calloway MD UROLOGY DIAGNOSES: 1. Atrophic testicle - ICD9: 608.3, ICD10: N50.0 CHIEF COMPLAINT: Infertility HPI: Patient returns for continuing evaluation and management. 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 Martell Discussed adoption, donor sperm, testis biopsy and mTESE Pt and leans towards mTESE, FC info given Discussed fresh vs frozen, they are going to consider and also consider back up plans PMHx/PSHx: see above, otherwise unchanged Rx: reviewed and unchanged ROS: see above, otherwise unchanged Labs: Component Latest Ref Rng & Units 09/23/2020 01/16/2021 Estradiol 17B <40 pg/mL 41 (H) FSH 1.4 - 18.1 mU/mL 38.5 (H) 96.4 (H) LH 1.5 - 9.3 mU/mL 17.2 (H) 58.7 (H) Prolactin 2.1 - 17.7 ng/mL 10.1 Testosterone 123 - 814 ng/dL 482 822 (H) Imaging: None MEDICATIONS: Current Outpatient Medications Medication Sig insulin lispro (HUMALOG U-100 INSULIN) 100 unit/mL injection FOR USE IN INSULIN PUMP, USING ABOUT 75 UNITS PER DAY Blood-Glucose Transmitter ([employer]COM G6 TRANSMITTER) verna 1 Each every 3 months. Blood-Glucose Sensor (DEXCOM G6 SENSOR) verna 1 Each every 10 days. ACCU-CHEK FASTCLIX LANCET DRUM lancets CHECK GLUCOSE FOUR TIMES A DAY ACCU-CHEK GUIDE TEST STRIPS test strip TEST 4 TIMES DAILY BD INSULIN SYRINGE ULTRA-FINE 0.3 mL 31 gauge x 5/16 USE DAILY NEEDED FOR PUMP FAILURE clomiPHENe (SEROPHENE) 50 mg tablet TAKE 1 CAPSULE BY MOUTH EVERY MONDAY,MONDAY,MONDAY. (Patient not taking: No sig reported) BD INSULIN SYRINGE 1 mL 29 gauge x 1/2 USE 1 SYRINGE DAILY (Patient not taking: No sig reported) glucagon (GLUCAGON EMERGENCY KIT, HUMAN,) 1 mg injection Inject 1 mg subcutaneously one time only for 1 dose. lithium carbonate (ESKALITH) 150 mg capsule Take 150 mg by mouth twice daily. (Patient not taking: Reported on 11/09/2021) Insulin Syringe-Needle U-100 (INSULIN SYRINGE) 0.5 mL 29 gauge x 1/2 1 Each once daily. (Patient not taking: No sig reported) LANTUS SOLOSTAR U-100 INSULIN 100 unit/mL (3 mL) Inject 20 Units subcutaneously daily at bedtime. (Patient not taking: No sig reported) BD INSULIN PEN NEEDLE UF 31 gauge x 5/16 Inject 1 Each subcutaneously four times daily. (Patient not taking: No sig reported) alcohol swabs USE TO TEST BLOOD GLUCOSE 4 TIMES A DAY ACCU-CHEK GUIDE ME GLUCOSE MTR CHECK GLUCOSE FOUR TIMES A DAY, BEFORE MEALS AND AT BEDTIME FLUoxetine HCl 20 mg tablet Take 20 mg by mouth once daily. lamoTRIgine (LAMICTAL) 200 mg tablet Take 200 mg by mouth once daily. No current facility-administered medications for this visit. PHYSICAL EXAM: There were no vitals taken for this visit. There is no height or weight on file to calculate BMI. General: Well masculinized, well nourished male Psych: euthymic, NAD Neuro: A&Ox3 DIAGNOSES: 1. Atrophic testicle - ICD9: 608.3, ICD10: N50.0 IMPRESSION/PLAN: Stopped EMT Repeat SA and PEUA - Negative Genetics WNL Discussed adoption, donor sperm, testis biopsy and mTESE Pt aware of low chance of success with mTESE, is pushing for it Pt would like to proceed with testicular biopsy if covered by insurance I spent more than 15 minutes [id number] with the patient and over half the time was devoted to counseling and/or coordination of care. Consent for this telehealth visit obtained from the patient prior to initiation of the encounter. The patient acknowledges the limitations of telehealth and agrees to proceed. The patient understands that this visit will be documented in the medical record as any other patient encounter. Bibiana Melgar MD documented in this encounter [facility] 11-29-2021 Miscellaneous Notes ANEESH 11/09/2021 NOV 02/17/2022 Pharmacy electronically requesting refills as follows: Requested Prescriptions Pending Prescriptions Disp Refills insulin lispro (HUMALOG U-100 INSULIN) 100 unit/mL injection [Pharmacy Med Name: HUMALOG 100 UNIT/ML VIAL] 30 mL 3 Sig: FOR USE IN INSULIN PUMP, USING ABOUT 75 UNITS PER DAY Please review and advise. Mary Waller MA documented in this encounter [facility] 11-11-2021 Miscellaneous Notes Spoke with pt's eye doctor and they are going to be faxing over most recent DM eye exam to our office Shoshana Yates CMA Please request most recent dilated retinal exam from [facility]. Thank you. Adeola Bronson APRN.EVON documented in this encounter [facility] 11-09-2021 History of Present illness Narrative Subjective Bonnie Quinteros is a 36 year old male who presents for diabetes management. Timeline: Diagnosed with type 1 diabetes 10/2019. Established care with endocrinology 11/2019. Current medications for diabetes: Humalog via Tandem insulin pump Current pump settings: Basal rates: 0000 - 0600 0.9 0600 - 2000 0.5 2000 - 0000 0.7 Active insulin time: 5 hours Carbohydrate ratio: 0000 - 0600 12 0600 - 2000 9.5 2000 - 0000 9.5 Insulin sensitivity/correction factor: 0000 - 0600 60 0600 - 1400 71 1400 - 0000 71 Blood glucose target: 110 Today's visit: Patient presents for management of his diabetes. Pump is downloaded today: TIR: 86% High: 10% Low: 5% No patterns. Patient has multiple questions today. He is following with reproductive endocrinology. He has no complaints or concerns today. 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 Diet: Typical breakfast: Sausage, bread, and eggs. Typical lunch: Salad with raisins and chicken. Typical dinner: Variable. Sweet potatoes, vegetables, chicken. Proficient in counting carbs. Exercise/activity: Walking. Denies frequent periods of hypoglycemia. Patient verbalized understanding of the signs and symptoms of hypoglycemia and its treatment options. Important Diabetes Lab History: HBA1C: 01/2020 6.4%. 06/2020 7.1%. 10/2020 6.9%. 04/2021 8.0%. 07/2021 7.7%. 11/2021 6.9%. Thyroid Function Testin01/2021 TSH 1.390, T4 1.1. Renal Function Testin10/2019 creatinine 0.7, GFR >60. 01/2021 creatinine 0.89, GFR >60. Urine for Microalbumin: 01/2021 orders placed. Lipid Profile: 01/2021 Cholesterol 178, triglycerides 37, HDL 79, LDL 191, VLDL 7. Liver Profile: 10/2019 AST 97, ALT 10, alk phos 97, total bili 0.4. 01/2021 AST 14, ALT 15, alk phos 56, total bili 0.4. C-peptide: 02/2020: 1.19 (0.8-3.9), glucose 108. 01/2021 0.3, glucose 122. Glutamic acid decarboxylase AB: 02/2020: POSITIVE >250 (<5.1). 01/2021 POSITIVE >120. Insulin antibody: 02/2020 <0.4 (<0.4). Important Diabetes Maintenance: Eye Exam: 10/19/2020 see scanned documents. Last one 2021 [facility]. Educated on importance of annual dilated eye exams. Instructed to fax me results. Diabetes Pertinent negatives for hypoglycemia include no dizziness, headaches, nervousness/anxiousness, seizures or tremors. Pertinent negatives for diabetes include no blurred vision, no chest pain, no polydipsia, no weakness and no weight loss. Review of Systems Constitutional: Negative for chills, fever, malaise/fatigue and weight loss. HENT: Negative for ear pain, hearing loss, nosebleeds and sore throat. Eyes: Negative for blurred vision and double vision. Respiratory: Negative for cough, hemoptysis, sputum production, shortness of breath and wheezing. Cardiovascular: Negative for chest pain, palpitations and leg swelling. Gastrointestinal: Negative for abdominal pain, blood in stool, constipation, diarrhea, heartburn, melena, nausea and vomiting. Genitourinary: Negative for dysuria, flank pain, frequency, hematuria and urgency. Musculoskeletal: Negative for back pain, falls, joint pain, myalgias and neck pain. Skin: Negative for itching and rash. Neurological: Negative for dizziness, tingling, tremors, sensory change, speech change, focal weakness, seizures, loss of consciousness, weakness and headaches. Endo/Heme/Allergies: Negative for environmental allergies and polydipsia. Does not bruise/bleed easily. Psychiatric/Behavioral: Negative for depression, hallucinations, memory loss, substance abuse and suicidal ideas. The patient is not nervous/anxious and does not have insomnia. PAST MEDICAL HISTORY Diagnosis Date Depression Diabetes mellitus type 1 (HCC) 10/17/2019 No past surgical history on file. FAMILY HISTORY Problem Relation Age of Onset Thyroid Mother Social History Tobacco Use Smoking status: Former Types: Cigarettes Quit date: 03/24/2000 Years since quittin.6 Smokeless tobacco: Never Vaping Use Vaping Use: Never used Substance Use Topics Alcohol use: Not Currently Drug use: Yes Types: Marijuana Current Meds Blood-Glucose Transmitter (DEXCOM G6 TRANSMITTER) verna 1 Each every 3 months. Blood-Glucose Sensor (DEXCOM G6 SENSOR) verna 1 Each every 10 days. insulin lispro (HUMALOG U-100 INSULIN) 100 unit/mL injection FOR USE IN INSULIN PUMP, USING ABOUT 75 UNITS PER DAY ACCU-CHEK FASTCLIX LANCET DRUM lancets CHECK GLUCOSE FOUR TIMES A DAY ACCU-CHEK GUIDE TEST STRIPS test strip TEST 4 TIMES DAILY BD INSULIN SYRINGE ULTRA-FINE 0.3 mL 31 gauge x 5/16 USE DAILY NEEDED FOR PUMP FAILURE glucagon (GLUCAGON EMERGENCY KIT, HUMAN,) 1 mg injection Inject 1 mg subcutaneously one time only for 1 dose. alcohol swabs USE TO TEST BLOOD GLUCOSE 4 TIMES A DAY ACCU-CHEK GUIDE ME GLUCOSE MTR CHECK GLUCOSE FOUR TIMES A DAY, BEFORE MEALS AND AT BEDTIME FLUoxetine HCl 20 mg tablet Take 20 mg by mouth once daily. lamoTRIgine (LAMICTAL) 200 mg tablet Take 200 mg by mouth once daily. clomiPHENe (SEROPHENE) 50 mg tablet TAKE 1 CAPSULE BY MOUTH EVERY MONDAY,MONDAY,MONDAY. (Patient not taking: No sig reported) BD INSULIN SYRINGE 1 mL 29 gauge x 1/2 USE 1 SYRINGE DAILY (Patient not taking: No sig reported) lithium carbonate (ESKALITH) 150 mg capsule Take 150 mg by mouth twice daily. (Patient not taking: Reported on 11/09/2021) Insulin Syringe-Needle U-100 (INSULIN SYRINGE) 0.5 mL 29 gauge x 1/2 1 Each once daily. (Patient not taking: No sig reported) LANTUS SOLOSTAR U-100 INSULIN 100 unit/mL (3 mL) Inject 20 Units subcutaneously daily at bedtime. (Patient not taking: No sig reported) BD INSULIN PEN NEEDLE UF 31 gauge x 5/16 Inject 1 Each subcutaneously four times daily. (Patient not taking: No sig reported) Objective BP 122/80 Pulse (!) 46 Ht 170.2 cm (5' 7 ) Wt 87.3 kg (192 lb 6.4 oz) SpO2 94% BMI 30.13 kg/m Physical Exam HENT: Head: Normocephalic and atraumatic. Cardiovascular: Rate and Rhythm: Normal rate and regular rhythm. Pulmonary: Effort: Pulmonary effort is normal. Breath sounds: Normal breath sounds. Musculoskeletal: Cervical back: Normal range of motion and neck supple. Skin: General: Skin is warm and dry. Neurological: Mental Status: He is alert and oriented to person, place, and time. Plan ASSESSMENT/PLAN: 1. Type 1 diabetes mellitus with hyperglycemia, with long-term current use of insulin (HCC) - ICD9: 250.01, 790.29, ICD10: E10.65 2. Presence of insulin pump - ICD9: V45.85, ICD10: Z96.41 (primary diagnosis) 3. Insulin pump titration - ICD9: V53.91, ICD10: Z46.81 Insulin: Humalog Plan of care: 1. HbA1C 6.9%. 2. Medication changes: CONTINUE Humalog via Tandem insulin pump. Stress importance of pre-bolusing. See below. Your new insulin regimen: Basal rates: 0000 - 0600 0.9 0600 - 2000 0.5 2000 - 0000 0.7 Active insulin time: 5 hours Carbohydrate ratio: 0000 - 0600 12 0600 - 2000 9.5 2000 - 0000 9.5 Insulin sensitivity/correction factor: 0000 - 0600 60 0600 - 1400 71 1400 - 0000 71 Blood glucose target: 110 3. Total time = 45 minutes 4. Continue Dexcom G6. 5. Answered all questions. 6. Educated patient on therapeutic lifestyle changes. 7. Patient verbalized understanding of all the above instructions. 8. Patient has multiple other questions, all of which are answered. 9. Due for labs: - TSH BLD - T4 FREE/FREE THYROX - LIPID PANEL BASIC - ALBUMIN/CREAT RATIO RND UR - COMP METABOLIC PANEL 4. Class 1 obesity with serious comorbidity and body mass index (BMI) of 30.0 to 30.9 in adult, unspecified obesity type - ICD9: 278.00, V85.30, ICD10: E66.9, Z68.30 - Weight decreasing. - Last 2 Encounter Wt Readings: Date: Wt: 11/09/2021 87.3 kg (192 lb 6.4 oz) 07/12/2021 89.4 kg (197 lb 3.2 oz) - We reviewed diet and exercise goals. Follow up: Return in 3 months (on 02/09/2022) for Diabetes follow-up. Adeola Bronson CNP 11/09/2021 3:59 PM documented in this encounter [facility] 10-06-2021 Miscellaneous Notes LM to PT to call back to schedule office or virtual visit with Dr. Melgar to discuss mTESE surgery Thanks ----- Message from Bibiana Melgar MD sent at 10/06/2021 1:24 PM EDT ----- Regarding: FW: sa for IVf/ Please schedule office or virtual visit with me to discuss mTESE surgery thanks ----- Message ----- From: Saundra Rivero APRN.EVON Sent: 10/06/2021 1:14 PM EDT To: Bibiana Melgar MD Subject: RE: sa for IVf/ spoke to Bonnie he will call to get a follow up appointment, unless your refueler can help him out. states they were trying to get in touch with the financial person , Cee, about the Tese .financials never got through to her. can you have the person that needs to discuss with them, call him? or give me name and number and I will send message to patient. thank you, Saundra Rivero APRN.CNP October 06, 2021 1:14 PM ----- Message ----- From: Bibiana Melgar MD Sent: 10/06/2021 1:01 PM EDT To: Soren Martell MD, # Subject: RE: sa for IVf/ Hi Saundra, This patient had all his semen testsing and REUA at [facility]. He was azoo on both his SA and post ejac UA. Most recent one is scanned in 02/16/2021. I do not expect any sperm even if he repeat it. Pt should schedule follow up with me if they are wanting to move forward with micro tese. I gave them the financial counselor info last visit as well. Does not look like they reached out to them either. THanks ----- Message ----- From: Saundra Rivero APRN.CNP Sent: 10/06/2021 10:17 AM EDT To: Bibiana Melgar MD Subject: sa for IVf/ patient calling to schedule SA for IVF he has retrograde / IDDM met with you in 03/2021 do you expect any sperm? and should he use NaBicarb , will that help or not? Dr. Martell did not order any SA for him, and patient is calling. should he freeze the sperm if any obtained in either sa or urine? or should he skip this SA and revisit with yout or Dr. Parekh to make plan for ? mTese thanks Saundra Rivero APRN.CNP October 06, 2021 10:16 AM documented in this encounter [facility] 10-06-2021 Miscellaneous Notes Images from the original note were not included. spoke to patient, IDDM with retrograde ejaculation and azospermia on sperm counts at [facility] I do not see any labs on SA's in epic or scanned. patient said Dr. Fernandez was dwight [place], ? fresh patient said his tolld him to needs SA. Plan- patient notified that I am waiting to hear from Dr. fernandez, if SA and retrograde urine is needed or not, if needed would it help to be on N [place] before collecting? advised patient that I ira let patient know what Dr. Fernandez advises. Saundra Rivero APRN.CNP October 06, 2021 10:29 AM NOTE; couple needs to complete their Myriad testing for genetic carrier status, slaiva ks were sent according to Helveta protal. ira have nurse Dolores check. Saundra Rivero APRN.CNP October 06, 2021 10:42 AM message from MD Saundra Espitia APRN.CNP; MD Frederick Garcia, This patient had all his semen testsing and REUA at [facility]. He was azoo on both his SA and post ejac UA. Most recent one is scanned in 02/16/2021. I do not expect any sperm even if he repeat it. Pt should schedule follow up with me if they are wanting to move forward with micro tese. I gave them the financial counselor info last visit as well. Does not look like they reached out to them either. THanks spoke to patient of paige, sent message back to Dr. Hung to make him aware of getting thorugh has been difficult, he can send me information for patient or have hsi scheduelrs get him appt and alos talk with financials for Tese. couple needs to do their Myriad testing, saliva kit was sent 09-13-21. can hav Jaja, , call to speak to the IVf nurse working with them, Dolores. Saundra Rivero APRN.CNP October 06, 2021 1:16 PM patient notified that Dr[address] Melgar office ira reach out to get him to review plans.etc for m TESE.''make certain to call them back if misses a call. Saundra Rivero APRN.CNP October 06, 2021 2:33 PM Please order semen analysis order for patient, order required. documented in this encounter [facility] 09-06-2021 Miscellaneous Notes Dexcom Sample at front desk agent for pt Shoshana Yates CMA documented in this encounter [facility] 07-12-2021 Instructions Adeola Bronson APRN.CNP - 07/12/2021 4:16 PM EDT Research Metformin, starting dose 500mg twice a day documented in this encounter [facility] 07-12-2021 History of Present illness Narrative Subjective Bonnie Quinteros is a 35 year old male who presents for diabetes management. Timeline: Diagnosed with type 1 diabetes 10/2019. Established care with endocrinology 11/2019. Current medications for diabetes: Humalog via Tandem insulin pump Current pump settings: Basal rates: 0000 - 0600 0.9 0600 - 1999 0.5 1999 - 0000 0.7 Active insulin time: 5 hours Carbohydrate ratio: 0000 - 0600 12 0600 - 1999 9.5 2000 - 0000 9.5 Insulin sensitivity/correction factor: 71 Blood glucose target: 110 Today's visit: Patient presents for management of his diabetes. Pump is downloaded today: TIR: 75% High: 24% Low: 1% Patterns show overnight hyperglycemia. Patient has multiple questions today. He is planning to see reproductive endocrinology and possibly pursue surgery. He has no complaints or concerns today. 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 Diet: Typical breakfast: Sausage, bread, and eggs. Typical lunch: Salad with raisins and chicken. Typical dinner: Variable. Sweet potatoes, vegetables, chicken. Proficient in counting carbs. Exercise/activity: Walking. Denies frequent periods of hypoglycemia. Patient verbalized understanding of the signs and symptoms of hypoglycemia and its treatment options. Important Diabetes Lab History: HBA1C: 01/2020 6.4%. 06/2020 7.1%. 10/2020 6.9%. 04/2021 8.0%. 07/2021 7.7%. Thyroid Function Testin01/2021 TSH 1.390, T4 1.1. Renal Function Testin10/2019 creatinine 0.7, GFR >60. 01/2021 creatinine 0.89, GFR >60. Urine for Microalbumin: 01/2021 orders placed. Lipid Profile: 01/2021 Cholesterol 178, triglycerides 37, HDL 79, LDL 191, VLDL 7. Liver Profile: 10/2019 AST 97, ALT 10, alk phos 97, total bili 0.4. 01/2021 AST 14, ALT 15, alk phos 56, total bili 0.4. C-peptide: 02/2020: 1.19 (0.8-3.9), glucose 108. 01/2021 0.3, glucose 122. Glutamic acid decarboxylase AB: 02/2020: POSITIVE >250 (<5.1). 01/2021 POSITIVE >120. Insulin antibody: 02/2020 <0.4 (<0.4). Important Diabetes Maintenance: Eye Exam: 10/19/2020 see scanned documents. Educated on importance of annual dilated eye exams. Instructed to fax me results. Diabetes Pertinent negatives for hypoglycemia include no dizziness, headaches, nervousness/anxiousness, seizures or tremors. Pertinent negatives for diabetes include no blurred vision, no chest pain, no polydipsia, no weakness and no weight loss. Review of Systems Constitutional: Negative for chills, fever, malaise/fatigue and weight loss. HENT: Negative for ear pain, hearing loss, nosebleeds and sore throat. Eyes: Negative for blurred vision and double vision. Respiratory: Negative for cough, hemoptysis, sputum production, shortness of breath and wheezing. Cardiovascular: Negative for chest pain, palpitations and leg swelling. Gastrointestinal: Negative for abdominal pain, blood in stool, constipation, diarrhea, heartburn, melena, nausea and vomiting. Genitourinary: Negative for dysuria, flank pain, frequency, hematuria and urgency. Musculoskeletal: Negative for back pain, falls, joint pain, myalgias and neck pain. Skin: Negative for itching and rash. Neurological: Negative for dizziness, tingling, tremors, sensory change, speech change, focal weakness, seizures, loss of consciousness, weakness and headaches. Endo/Heme/Allergies: Negative for environmental allergies and polydipsia. Does not bruise/bleed easily. Psychiatric/Behavioral: Negative for depression, hallucinations, memory loss, substance abuse and suicidal ideas. The patient is not nervous/anxious and does not have insomnia. PAST MEDICAL HISTORY Diagnosis Date Depression Diabetes mellitus type 1 (HCC) 10/17/2019 No past surgical history on file. FAMILY HISTORY Problem Relation Age of Onset Thyroid Mother Social History Tobacco Use Smoking status: Former Smoker Types: Cigarettes Quit date: 03/24/2000 Years since quittin.3 Smokeless tobacco: Never Used Vaping Use Vaping Use: Never used Substance Use Topics Alcohol use: Not Currently Drug use: Yes Types: Marijuana Current Meds Blood-Glucose Transmitter (DEXCOM G6 TRANSMITTER) verna 1 Each every 3 months. Blood-Glucose Sensor (DEXCOM G6 SENSOR) verna 1 Each every 10 days. insulin lispro (HUMALOG U-100 INSULIN) 100 unit/mL injection FOR USE IN INSULIN PUMP, USING ABOUT 75 UNITS PER DAY ACCU-CHEK FASTCLIX LANCET DRUM lancets CHECK GLUCOSE FOUR TIMES A DAY ACCU-CHEK GUIDE TEST STRIPS test strip TEST 4 TIMES DAILY BD INSULIN SYRINGE ULTRA-FINE 0.3 mL 31 gauge x 5/16 USE DAILY NEEDED FOR PUMP FAILURE clomiPHENe (SEROPHENE) 50 mg tablet TAKE 1 CAPSULE BY MOUTH EVERY MONDAY,MONDAY,MONDAY. BD INSULIN SYRINGE 1 mL 29 gauge x 1/2 USE 1 SYRINGE DAILY glucagon (GLUCAGON EMERGENCY KIT, HUMAN,) 1 mg injection Inject 1 mg subcutaneously one time only for 1 dose. lithium carbonate (ESKALITH) 150 mg capsule Take 150 mg by mouth twice daily. Insulin Syringe-Needle U-100 (INSULIN SYRINGE) 0.5 mL 29 gauge x 1/2 1 Each once daily. LANTUS SOLOSTAR U-100 INSULIN 100 unit/mL (3 mL) Inject 20 Units subcutaneously daily at bedtime. BD INSULIN PEN NEEDLE UF 31 gauge x 5/16 Inject 1 Each subcutaneously four times daily. alcohol swabs USE TO TEST BLOOD GLUCOSE 4 TIMES A DAY ACCU-CHEK GUIDE ME GLUCOSE MTR CHECK GLUCOSE FOUR TIMES A DAY, BEFORE MEALS AND AT BEDTIME FLUoxetine HCl 20 mg tablet Take 20 mg by mouth once daily. lamoTRIgine (LAMICTAL) 200 mg tablet Take 200 mg by mouth once daily. Objective BP 121/79 Pulse 68 Ht 170.2 cm (5' 7 ) Wt 89.4 kg (197 lb 3.2 oz) SpO2 96% BMI 30.89 kg/m Physical Exam HENT: Head: Normocephalic and atraumatic. Cardiovascular: Rate and Rhythm: Normal rate and regular rhythm. Pulmonary: Effort: Pulmonary effort is normal. Breath sounds: Normal breath sounds. Musculoskeletal: Cervical back: Normal range of motion and neck supple. Skin: General: Skin is warm and dry. Neurological: Mental Status: He is alert and oriented to person, place, and time. Plan ASSESSMENT/PLAN: 1. Type 1 diabetes mellitus with hyperglycemia, with long-term current use of insulin (HCC) - ICD9: 250.01, 790.29, ICD10: E10.65 2. Presence of insulin pump - ICD9: V45.85, ICD10: Z96.41 (primary diagnosis) 3. Insulin pump titration - ICD9: V53.91, ICD10: Z46.81 Insulin: Humalog Plan of care: 1. HbA1C 7.7% 2. Medication changes: CONTINUE Humalog via Tandem insulin pump. Stress importance of pre-bolusing. See below. Your new insulin regimen: Basal rates: 0000 - 0600 0.9 0600 - 2000 0.5 2000 - 0000 0.7 Active insulin time: 5 hours Carbohydrate ratio: 0000 - 0600 12 0600 - 2000 9.5 2000 - 0000 9.5 Insulin sensitivity/correction factor: 71 CHANGE TO: 0000 - 0600 60 0600 - 1400 71 1400 - 0000 71 Blood glucose target: 110 TURN SLEEP MODE ON 24/10 3. Total time = 45 minutes 4. Continue Dexcom G6. 5. Answered all questions. 6. Educated patient on therapeutic lifestyle changes. 7. Patient verbalized understanding of all the above instructions. 8. Patient has multiple other questions, all of which are answered. 4. Class 1 obesity with serious comorbidity and body mass index (BMI) of 31.0 to 31.9 in adult, unspecified obesity type - ICD9: 278.00, V85.30, ICD10: E66.9, Z68.30 - Weight stable - Last 2 Encounter Wt Readings: Date: Wt: 07/12/2021 89.4 kg (197 lb 3.2 oz) 04/12/2021 90.7 kg (200 lb) - We reviewed diet and exercise goals. Follow up: Return in about 3 months (around 10/11/2021) for Diabetes follow-up. Adeola Bronson CNP 07/12/2021 4:01 PM documented in this encounter [facility] 04-19-2021 Chief complaint Narrative - Reported An interactive audio and video telecommunication system which permits real time communications between the patient (at the originating site) and provider (at the distant site) was utilized to provide this telehealth service.Verbal consent was requested and obtained from BONNIE QUINTEROS on this date, 04/19/2021 03:00 PM , for a telehealth visit.infertility [id number] Work Phone: Evaluation note Diagnosis Presence of insulin pump- Primary Insulin pump status Type 1 diabetes mellitus with hyperglycemia, with long-term current use of insulin (HCC) Insulin pump titration Fitting and adjustment of insulin pump Class 1 obesity with serious comorbidity and body mass index (BMI) of 31.0 to 31.9 in adult, unspecified obesity type [facility]* Diagnosis Procreative management- Primary Unspecified procreative management documented [facility] this encounter [facility]* Diagnosis Type 1 diabetes mellitus with hyperglycemia, with long-term current use of insulin (HCC)- Primary Presence of insulin pump Insulin pump status Insulin pump titration Fitting and adjustment of insulin pump Class 1 obesity with serious comorbidity and body mass index (BMI) of 30.0 to 30.9 in adult, unspecified obesity type [facility]* Diagnosis Type 1 diabetes mellitus with hyperglycemia, with long-term current use of insulin (HCC) documented [facility]* Diagnosis Atrophic testicle- Primary Atrophy of testis Encounter for fertility testing Fertility testing documented [facility] this [facility]* Diagnosis Preop examination [Z01.818 (ICD-10-CM)]- Primary Preoperative examination, unspecified Atrophic testicle [N50.0 (ICD-10-CM)] Atrophy of testis Type 1 diabetes mellitus without complication (HCC) [E10.9 (ICD-10-CM)] Type I (juvenile type) diabetes mellitus without mention of complication, not stated as uncontrolled ROSCOE (obstructive sleep apnea) [G47.33 (ICD-10-CM)] Obstructive sleep apnea (adult) (pediatric) Atrophic testicle Atrophy of testis documented [facility]* Diagnosis Type 1 diabetes mellitus with hyperglycemia, with long-term current use of insulin (HCC) documented in this encounter [facility] note* Diagnosis Type 1 diabetes mellitus with hyperglycemia, with long-term current use of insulin (HCC)- Primary documented [facility]* Diagnosis Type 1 diabetes mellitus with hyperglycemia, with long-term current use of insulin (HCC)- Primary Presence of insulin pump Insulin pump status Insulin pump titration Fitting and adjustment of insulin pump Class 1 obesity with serious comorbidity and body mass index (BMI) of 30.0 to 30.9 in adult, unspecified obesity type [facility]* Diagnosis Type 1 diabetes mellitus with hyperglycemia, with long-term current use of insulin (HCC)- Primary [facility]* Diagnosis Type 1 diabetes mellitus with hyperglycemia, with long-term current use of insulin (HCC) documented [facility]* Diagnosis Type 1 diabetes mellitus with hyperglycemia, with long-term current use of insulin (HCC) documented [facility]* Diagnosis Type 1 diabetes mellitus with hyperglycemia, with long-term current use of insulin (HCC)- Primary Presence of insulin pump Insulin pump status Insulin pump titration Fitting and adjustment of insulin pump documented [facility]* Diagnosis Type 1 diabetes mellitus with hyperglycemia, with long-term current use of insulin (HCC)- Primary Presence of insulin pump Insulin pump status Insulin pump titration Fitting and adjustment of insulin pump [facility] Diagnosis Type 1 diabetes mellitus with hyperglycemia, with long-term current use of insulin (HCC)- Primary Presence of insulin pump Insulin pump status Insulin pump titration Fitting and adjustment of insulin pump [facility]* Diagnosis Encounter for routine history and physical examination of adult- Primary Type 2 diabetes mellitus without complication, without long-term current use of insulin ([facility]/HCC) Depression, unspecified depression type Wellness examination Prostate cancer screening Special screening for malignant neoplasm of prostate documented in this encounter [facility] Work Phone: Evaluation note* Diagnosis Type 1 diabetes mellitus with hyperglycemia, with long-term current use of insulin (HCC)- Primary [facility]* Diagnosis Type 1 diabetes mellitus with hyperglycemia, with long-term current use of insulin (HCC) [facility]* Diagnosis Type 1 diabetes mellitus with hyperglycemia, with long-term current use of insulin (HCC)- Primary Presence of insulin pump Insulin pump status Insulin pump titration Fitting and adjustment of insulin pump Class 1 obesity with serious comorbidity and body mass index (BMI) of 30.0 to 30.9 in adult, unspecified obesity type [facility] Diagnosis Chronic left shoulder pain- Primary Pain in joint, shoulder region documented in this encounter [facility] Work Phone: Evaluation note* Diagnosis Pain in left shoulder documented in this encounter [facility] Work Phone: History of Present illness Narrative* 35 year old male referred to me by Dr. Calloway for infertility * name: Jaja Quinteros * Partner/ age: 36 * Attempting for : 18 months * Previous pregnancies for either partner: none * seeing Dr. Martell ([facility]) at [facility] * Seeing Dr. Melgar at [facility] * Previous Semen analysis / Labs: * was on clomipehene * T 482 to 822 * FSH 38 * YCM negative * karyotype normal * Scrotal US: Testicles atrophic * PREVIOUS RISK FACTORS * History of testicular exposure to chemicals, radiation, or toxins: None * History of high fever, epididymitis, orchitis, prostatitis, sexually transmitted diseases, or trauma to the testicles: epididymitis in college * History of a varicocele, testicular torsion, cryptorchidism, postpubertile mumps or a family history of infertility: None * Problems with erections or ejaculation: yes when on psych medications * Smoker? * Previous Testosterone or anabolic steroid Use: none * PRIOR Assisted Reproductive Technology: * None [id number] Work Phone: Reason for referral (narrative)* Consultation (Routine) - Authorized Specialty Diagnoses / Procedures Referred By Cole cartwright Referred To Contact Primary Care Procedures Follow Up In Primary Care - Established Dominic Calloway MD [address] [facility] [place] [address] Referral ID Status Reason Start Date Expiration Date V isits Requested Visits Authorized [id number] Authorized 05/31/2023 05/30/2024 1 1 [facility] Work Phone: Reyuru for referral (narrative)* Consultation (Routine) - Authorized Specialty Diagnoses / Procedures Referred By Cole cartwright Referred To Contact Orthopaedic Surgery Diagnoses Chronic left shoulder pain Dominic Tinoco MD [address] [place] [address] Siva Ellis DO [address] [place] [address] Referral ID Status Reason Start Date Expiration Date Visits Requested Visits Authorized [id number] Authorized Specialty Services Required 4 01/14/2025 1 1 [facility] Work Phone: Reason for visit Narrative* Imaging (Routine) - Authorized Specialty Diagnoses / Procedures Referred By Contac t Referred To Contact Radiology Diagnoses Pain in left shoulder Procedures XR shoulder left 2+ views Siva Ellis DO [address] [place] [address] Phone: tel: fax: Referral ID Status Reason Start Date Expiration Date Visits Requested Visits Authorized [id number] Authorized Perform Procedure 4 01/18/2025 1 1 [facility] Work Phone: Summary Purpose Family History No Family History Records FoundUnknown Family Member Name Dates Details Family history of liver dise ase: Multiple Family Members(V18.59, Z83.79) Status:Active Advance Directives No Advanced Directives Records FoundNo Advanced Directives Records FoundNo Advanced Directives Records FoundNo Advanced Directives Records FoundNo Advanced Directives Records FoundNo Advanced Directives Records FoundNo Advanced Directives Records FoundNo Advanced Directives Records FoundNo Advanced Directives Records Found Reason for Referral Status Reason Specialty Diagnoses / Procedures Referred By Contact Referred To Contact Authorized PCP Requested Referral Diagnoses Type 1 diabetes mellitus with hyperglycemia, with long-term current use of insulin (HCC) Procedures CONSULT TO DIABETES EDUCATION NEW PATIENT VISIT LEVEL 5 Adeola Bronson (Template Storage Clerk Garnishment Specialist) [address] [place] [address] Specialty Diagnoses / Procedures Referred By Contac t Referred To Contact Diagnoses Type 1 diabetes mellitus with hyperglycemia, with long-term current use of insulin (HCC) Adeola Bronson, PUMP STATION OPERATOR.WAIST CUTTER [address] [place] [address] Referral ID Status Reason Start Date Expiration Date Visits Re quested Visits Authorized [id number] Closed 1 1 History of Present Illness * Adeola Bronson (Template Storage Clerk Garnishment Specialist) - 11/18/2019 4:00 PM EDT Subjective Bnonie Quinteros is a 34 year old male who presents for diabetes management. Timeline: Diagnosed with type 1 diabetes 10/2019. Established care with endocrinology 11/2019. Current medications for diabetes: Humalog 4 units with meals plus sliding scale 2:50>150 Lantus 20 units at bedtime Today's visit: Patient presents for management of his diabetes. He was diagnosed last month after he experienced several months of weight loss, nausea, and vision changes. He states his initial fasting glucose when he was admitted to [facility] was >400. He brought Self-monitoring blood glucose data to review today. He is checking glucose 3x per day at home. Overall, he is meeting glucose targets most of the time. Highest glucose over the past 3 weeks was 177. He has had no hypoglycemia. We discussed the possibility that he is in his honeymoon phase. He states his vision has improved greatly since starting insulin. He is interested in a pump and CGM. 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 Diet: Since diabetes diagnosis, he has changed his diet significantly. He is learning to count carbs. He is interested in learning more about how fiber and protein affects glucose. He understands to avoid simple sugars. Exercise/activity: Walking. Denies frequent periods of hypoglycemia. Patient verbalized understanding of the signs and symptomsof hypoglycemia and its treatment options. Important Diabetes Lab History: HBA1C: None available, records requested. Thyroid Function Testing: None available, records requested. Renal Function Testing: None available, records requested. Urine for Microalbumin: None available, records requested. Lipid Profile: None available, records requested. Liver Profile: None available, records requested. Important Diabetes Maintenance: Eye Exam: Next one next week per patient. Educated on importance of annual dilated eye exams. Instructed to fax me results. Review of Systems Constitutional: Negative for chills, fever, malaise/fatigue and weight loss. HENT: Negative for ear pain, hearing loss, nosebleeds and sore throat. Eyes: Negative for blurred vision and double vision. Respiratory: Negative for cough, hemoptysis, sputum production, shortness of breath and wheezing. Cardiovascular: Negative for chest pain, palpitations and leg swelling. Gastrointestinal: Negative for abdominal pain, blood in stool, constipation, diarrhea, heartburn, melena, nausea and vomiting. Genitourinary: Negative for dysuria, flank pain, frequency, hematuria and urgency. Musculoskeletal: Negative for back pain, falls, joint pain, myalgias and neck pain. Skin: Negative for itching and rash. Neurological: Negative for dizziness, tingling, tremors, sensory change, speech change, focal weakness, seizures, loss of consciousness, weakness and headaches. Endo/Heme/Allergies: Negative for environmental allergies and polydipsia. Does not bruise/bleed easily. Psychiatric/Behavioral: Negative for depression, hallucinations, memory loss, substance abuse and suicidal ideas. The patient is not nervous/anxious and does not have insomnia. No past medical history on file. No past surgical history on file. No family history on file. Social History Tobacco Use Smoking status: Not on file Substance Use Topics Alcohol use: Not on file Drug use: Not on file Current Meds No prescriptions on file. Objective BP 124/86 (BP Site: Left Arm, BP Position: Sitting, BP Cuff Size: Large Adult) Pulse (!) 59 Ht 170.2 cm (5' 7 ) Wt 82.1 kg (181 lb) BMI 28.35 kg/m Physical Exam Constitutional: He is oriented to person, place, and time and well-developed, well-nourished, and in no distress. HENT: Head: Normocephalic and atraumatic. Eyes: EOM are normal. Neck: Normal range of motion. Neck supple. Cardiovascular: Pulses: Dorsalis pedis pulses are 2+ on the right side and 2+ on the left side. Posterior tibial pulses are 2+ on the right side and 2+ on the left side. Musculoskeletal: General: No edema. Neurological: He is alert and oriented to person, place, and time. Skin: Skin is warm and dry. Plan ASSESSMENT/PLAN: 1. Type 1 diabetes mellitus with hyperglycemia, with long-term current use of insulin ([facility]) - ICD9:250.01, 790.29, ICD10: E10.65 - CONSULT TO DIABETES EDUCATION Insulin: Humalog and Lantus Plan of care: 1. HbA1C not done today. 2. Medication changes: CONTINUE Humalog and Lantus. See below. Your new insulin regimen: Long acting insulin: Insulin used for this is called: Lantus Bedtime dose 20 Units Rapid acting / mealtime insulin: Insulin used for this is called: Humalog Breakfast dose: 4 Units Lunchtime dose 4 Units Supper dose 4 Units Your sliding scale, for additional units of the rapid acting insulin: Insulin used for this is called: Humalog Take this at meals, in addition to the above doses. If glucose reading is: 100-150 Take an additional 0 Units. 151-200 Take an additional 2 Units. 201-250 Take an additional 4 Units. 251-300 Take an additional 6 Units. 301-350 Take an additional 8 Units. 351-400 Take an additional 10 Units. Over 400 Take an additional 12 Units. 3. Total time in direct patient contact = 60 min. Greater than 50% of the time was spent in counseling and/or coordination of care. 4. Self-monitoring blood glucose log sheets were given to the patient. Patient instructed to fill them out and bring to the next visit. 5. Answered all questions. 6. Educated patient on therapeutic lifestyle changes. 7. Patient verbalized understanding of all the above instructions. 8. Lab records requested. 9. Patient is interested in a pump and CGM. He would do very well with a closed loop system. Patient chooses Tandem with Dexcom and ControlIQ. Rep notified. Follow up: Return in about 3 months (around 02/18/2020) for Diabetes follow-up. Adeola Bronson CNP 11/18/2019 4:48 PM Electronically signed by Adeola Flores (Template Storage Clerk Garnishment Specialist) Gui at 11/18/2019 4:50 PM EDT documented in this encounter* Adeola Sainz - 12/06/2019 10:57 AM EDT DIABETES SELF-MANAGEMENT EDUCATION AND SUPPORT Location: [place] Is this group education? No Types of DSMES: inital diabetes education for type 1 diabetes PATIENT'S MAIN CONCERN TODAY: What to eat Support person present for education today: spouse Cognitive ability: Alert and oriented Motivation to learn: Interested Learning barriers identified by educator: none Method of instruction: written, verbal and demonstration INTERVENTIONS/TOPICS COVERED: -Healthy Eating: impact of carbs on BG, basic carb counting, foods with carbs, portion sizes, fiber, reading food labels, recommendation for 30,15,30,15,45,30 g carb per meal and eating out -Medications: medication safety/timing, medication side effects and action DIABETES ASSESSMENT: Referring Physician: Adeola Bronson (Aprn Cnp) Previous Diabetes Education? No What are you hoping to gain from this visit? More info In your words, what is diabetes? asked/not answered What concerns you about having diabetes? complications Diabetes History: Type of Diabetes: Type 1 What year were you diagnosed? 2020 Does anyone in your family have diabetes? no How do you learn best? listening, observing , reading and doing Demographics: Highest level of education: Some college Race/Ethnic Origin: White/ Does your culture or christian require any of the following: No cultural/pentecostal practices affecting DM Do you have problems with: No difficulty seeing/hearing/reading/writing/speaking Occupation: [employer] Work hours: days Support System: How often does someone help you read hospital materials? never How often does someone help you read your pill bottles? never How often does someone have to help you take care of your diabetes? never Health History: Most recent eye exam: October Most recent dental exam:December Most recent foot exam:November How often do you inspect your feet at home? Daily Do you use tobacco? No Do you use alcohol? No In the past 12 months have you had any: Hospital Admissions: Yes, Number of Times? 1 ER Visits: Yes, Number of Times? 1 Primary Care Visits: Yes, Number of Times? 2 What are your general feelings about you overall health? Good Medical Issues/Complications: None No past medical history on file. Most recent A1C No results found for: HBA1C Physical Activity: Do you do a regular exercise? Yes; how many days per week Asked/not answered How long each day? Less than 30 min Type of Exercise: walking Sick Days: How do you manage your diabetes when you are sick? Call my doctor Sleep: Do you get at least 7 hrs of sleep most nights? yes Current Outpatient Medications Medication Sig ACCU-CHEK FASTCLIX LANCET DRUM lancets CHECK GLUCOSE FOUR TIMES A DAY glucagon (GLUCAGON EMERGENCY KIT, HUMAN,) 1 mg solr Inject 1 mg intramuscularly one time only for 1dose. alcohol swabs USE TO TEST BLOOD GLUCOSE 4 TIMES A DAY ACCU-CHEK GUIDE ME GLUCOSE MTR CHECK GLUCOSE FOUR TIMES A DAY, BEFORE MEALS AND AT BEDTIME FLUoxetine HCl 20 mg tablet LANTUS SOLOSTAR U-100 INSULIN 100 unit/mL (3 mL) INJECT 20 UNITS SUBCUTANEOUSLY ONCE DAILY AT BEDTIME HUMALOG KWIKPEN INSULIN 100 unit/mL lamoTRIgine (LAMICTAL) 200 mg tablet Take 200 mg by mouth once daily. lithium carbonate 300 mg tablet TAKE 1/2 TABLET BY MOUTH EVERY MORNING AND 1 TABLET DAILY AT BEDTIME ondansetron (ZOFRAN) 4 mg tablet 1 TAB BY MOUTH EVERY 8 HOURS NEEDED NAUSEA. WATCH FOR SEDATION ACCU-CHEK GUIDE TEST STRIPS test strip CHECK GLUCOSE FOUR TIMES A DAY BD INSULIN PEN NEEDLE UF 31 gauge x 5/16 Inject 1 Each subcutaneously four times daily. No current facility-administered medications for this visit. Medications for Diabetes: Name of Medication Dose When taken How often missed See above Injections Technique: Do you take insulin or a medication you inject for your diabetes? Yes;then if so answer the following questions: How do you inject your medicine Pen Where are your injections done? Stomach/abdomen Who prepares your syringes, pen, or pump infusion set? Self Who gives you injections or changes your pump sites? Me Where do you throw away your needles? Sharps container Blood Sugar Monitoring: Do you have a blood sugar monitor? Yes; What kind of meter is it? accu chek guide me How often do you check? 3 When you check? Before breakfast and Before all/most meals. Do you log your blood sugars? Yes. Where do you throw away your lancets? Sharps container Management of Low Blood Sugar: What has been your lowest blood sugar in the last month? 80 What are your symptoms of lows?Shaky How do you treat lows? food Do you drive? yes Management of High Blood Sugar: What has been you highest blood sugar in the last month? 130 What are your symptoms of highs? Tired and Other wt loss How do you treat your highs? insulin Meal Planning: Are you currently following any meal plan? None Who does the cooking in your house? Self and Spouse Who does the grocery shopping? Self and Spouse How often do you eat out? 0-1x/week How many meals do you eat per day? Three Which meals do you tend to skip? None Beverages: water Diet History: Breakfast - eggs, toast with avpcado or jam, cereal Lunch - Salad, meat, Snack - grapes, yogurt Dinner - turkey tacos, meat sweet potatoes, veggies Snack - ice cream bar Reproductive Status (Females): Have you reached menopause? N/A (male patient) EDUCATION HANDOUTS: Healthy You: Planning Healthy Meals LEARNING RESPONSE: Performs skills independently. and Verbalizes understanding of topics covered. PATIENT SELECTED THE FOLLOWING GOALS: -Healthy eating goal: follow a meal plan 4: I'm ready to start now DSMS PLAN: -Make an appointment at least once a year to meet with a senior health educator POSSIBLE FUTURE TOPICS: 1. Pattern mgt and ICR DIABETES EDUCATION PLAN: Individual follow-up as needed Time Spent (Minutes): 60 My final report will be communicated back to the requesting provider by way of shared medical record. SIGNATURE: Adeola Sainz MS RD LD CDE PATIENT NAME: Bonnie Quinteros DATE: December 06, 2019 TIME: 10:57 AM PAGER: documented in this encounter* Melvin Kahn - 01/30/2020 4:28 PM EDT Subjective Diabetes: Diagnosed 10/20 with DKA ([facility]). Initial visit at [facility] 11/20 with Adeola Bronson. Currently on Wsleyi45 units QPM and Humalog 4 to 6 units at meals. Has had one diabetic education class. (+) frequent (pretty much daily) hypoglycemia. A1c 6.3% 01/20 Review of Systems Constitutional: Negative for chills, diaphoresis, fever, malaise/fatigue and weight loss. HENT: Negative for congestion, ear discharge, ear pain, hearing loss, nosebleeds, sinus pain, sore throat and tinnitus. Eyes: Negative for blurred vision, double vision, photophobia, pain, discharge and redness. Respiratory: Negative for cough, hemoptysis, sputum production, shortness of breath, wheezing and stridor. Cardiovascular: Negative for chest pain, palpitations, orthopnea, claudication, leg swelling and PND. Gastrointestinal: Negative for abdominal pain, blood in stool, constipation, diarrhea, heartburn, melena, nausea and vomiting. Genitourinary: Negative for dysuria, flank pain, frequency, hematuria and urgency. Musculoskeletal: Negative for back pain, falls, joint pain, myalgias and neck pain. Skin: Negative for itching and rash. Neurological: Negative for dizziness, tingling, tremors, sensory change, speech change, focal weakness, seizures, loss of consciousness, weakness and headaches. Endo/Heme/Allergies: Negative for environmental allergies and polydipsia. Does not bruise/bleed easily. Psychiatric/Behavioral: Negative for depression, hallucinations, memory loss, substance abuse and suicidal ideas. The patient is not nervous/anxious and does not have insomnia. PAST MEDICAL HISTORY Diagnosis Date Depression Diabetes mellitus type 1 (HCC) 10/17/2019 History reviewed. No pertinent surgical history. FAMILY HISTORY Problem Relation Age of Onset Thyroid Mother Social History Tobacco Use Smoking status: Former Smoker Smokeless tobacco: Never Used Substance Use Topics Alcohol use: Not Currently Drug use: Yes Types: Marijuana Current Meds HUMALOG KWIKPEN INSULIN 100 unit/mL Inject 6 Units subcutaneously three times daily before meals. ACCU-CHEK FASTCLIX LANCET DRUM lancets CHECK GLUCOSE FOUR TIMES A DAY LANTUS SOLOSTAR U-100 INSULIN 100 unit/mL (3 mL) Inject 20 Units subcutaneously daily at bedtime. glucagon (GLUCAGON EMERGENCY KIT, HUMAN,) 1 mg solr Inject 1 mg intramuscularly one time only for 1dose. alcohol swabs USE TO TEST BLOOD GLUCOSE 4 TIMES A DAY ACCU-CHEK GUIDE ME GLUCOSE MTR CHECK GLUCOSE FOUR TIMES A DAY, BEFORE MEALS AND AT BEDTIME FLUoxetine HCl 20 mg tablet lamoTRIgine (LAMICTAL) 200 mg tablet Take 200 mg by mouth once daily. lithium carbonate 300 mg tablet TAKE 1/2 TABLET BY MOUTH EVERY MORNING AND 1 TABLET DAILY AT BEDTIME ACCU-CHEK GUIDE TEST STRIPS test strip CHECK GLUCOSE FOUR TIMES A DAY BD INSULIN PEN NEEDLE UF 31 gauge x 16 Inject 1 Each subcutaneously four times daily. ondansetron (ZOFRAN) 4 mg tablet 1 TAB BY MOUTH EVERY 8 HOURS NEEDED NAUSEA. WATCH FOR SEDATION Objective BP 102/70 (BP Site: Right Arm, BP Position: Sitting, BP Cuff Size: Large Adult) Pulse (!) 53 Ht170.2 cm (5' 7 ) Wt 86.6 kg (191 lb) SpO2 97% BMI 29.91 kg/m Physical Exam Constitutional: He is oriented to person, place, and time. No distress. HENT: Mouth/Throat: Oropharynx is clear and moist. Eyes: Pupils are equal, round, and reactive to light. Conjunctivae and EOM are normal. No scleral icterus. Neck: Neck supple. No tracheal deviation present. No thyromegaly present. Cardiovascular: Normal rate, regular rhythm, normal heart sounds and intact distal pulses. Pulmonary/Chest: Effort normal and breath sounds normal. No respiratory distress. He has no wheezes. He has no rales. He exhibits no tenderness. Musculoskeletal: General: No tenderness or edema. Lymphadenopathy: He has no cervical adenopathy. Neurological: He is alert and oriented to person, place, and time. Gait normal. Skin: Skin is warm and dry. No rash noted. Psychiatric: Mood, memory, affect and judgment normal. ASSESSMENT/PLAN: 1. Type 1 diabetes mellitus with hyperglycemia, with long-term current use of insulin (HCC) - ICD9:250.01, 790.29, ICD10: E10.65 (primary diagnosis) - For now reduce insulin doses to 18 units Lantus and 3 to 5 units of Humalog at meals. Will also screen pancreatic function with c-peptide and MAGGIE antibody level, as they were not done in the hospital - HB A1C B/O - HUMALOG KWIKPEN (U-100) INSULIN 100 UNIT/ML SUBCUTANEOUS - ACCU-CHEK FASTCLIX LANCET DRUM - C-PEPTIDE BLD - GLUCOSE RANDOM BLD - GLUTAMIC AC DECARBOXYLASE AB 2. Hypoglycemia due to type 1 diabetes mellitus (HCC) - ICD9: 250.81, 251.2, ICD10: E10.649 uncontrolled - Will start using Freestyle bry system 3. High risk medication use - insulin - ICD9: V58.69, ICD10: Z79.899 - As above. Start using CGM. Already monitoring 4+ times per day documented in this encounter* Adeola Bronson (Template Storage Clerk Garnishment Specialist) - 03/24/2020 3:28 PM EST Subjective Bonnie Quinteros is a 34 year old male who presents for diabetes management. Timeline: Diagnosed with type 1 diabetes 10/2019. Established care with endocrinology 11/2019. Current medications for diabetes: Humalog and Lantus Current insulin regimen: Long acting insulin: Insulin used for this is called: Lantus Bedtime dose 18 Units Rapid acting / mealtime insulin: Insulin used for this is called: Humalog Breakfast dose: 3 Units Lunchtime dose 3 Units Supper dose 3 Units Your sliding scale, for additional units of the rapid acting insulin: Insulin used for this is called: Humalog Take this at meals, in addition to the above doses. If glucose reading is: 100-150 Take an additional 0 Units. 151-200 Take an additional 2 Units. 201-250 Take an additional 4 Units. 251-300 Take an additional 6 Units. 301-350 Take an additional 8 Units. 351-400 Take an additional 10 Units. Over 400 Take an additional 12 Units. Today's visit: Patient presents for management of his diabetes. He is wearing Bry 2 sample, whichis downloaded today: Time in range: 81% High: 14% Very high: 3% Low: 2% Very low: 0% Trends show hypoglycemia most days after lunch. He is here today because he is concerned about his fluctuating glucose. He is interested in Tandem pump and Dexcom. He is proficient at carb counting and would like to transition to a carb ratio for his Humalog dosing. He got a lot of benefit from hisdiabetes education session with Adeola Sainz and would like to have another one to learn more. 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 Diet: Typical breakfast: Sausage, bread, and eggs. Typical lunch: Salad with raisins and chicken. Typical dinner: Variable. Sweet potatoes, vegetables, chicken. Proficient in counting carbs. Exercise/activity: Walking. Denies frequent periods of hypoglycemia. Patient verbalized understanding of the signs and symptomsof hypoglycemia and its treatment options. Important Diabetes Lab History: HBA1C: 01/2020 6.4%. Thyroid Function Testing: None available, records requested. Renal Function Testin10/2019 creatinine 0.7, GFR >60. Urine for Microalbumin: None available, records requested. Lipid Profile: None available, records requested. Liver Profile: 10/2019 AST 97, ALT 10, alk phos 97, total bili 0.4. C-peptide: 02/2020: 1.19 (0.8-3.9), glucose 108. Glutamic acid decarboxylase AB: 02/2020: POSITIVE >250 (<5.1). Insulin antibody: 02/2020 <0.4 (<0.4). Important Diabetes Maintenance: Eye Exam: 11/2019 per patient. Educated on importance of annual dilated eye exams. Instructed to faxme results. Diabetes Pertinent negatives for hypoglycemia include no dizziness, headaches, nervousness/anxiousness, seizures or tremors. Pertinent negatives for diabetes include no blurred vision, no chest pain, no polydipsia, no weakness and no weight loss. Review of Systems Constitutional: Negative for chills, fever, malaise/fatigue and weight loss. HENT: Negative for ear pain, hearing loss, nosebleeds and sore throat. Eyes: Negative for blurred vision and double vision. Respiratory: Negative for cough, hemoptysis, sputum production, shortness of breath and wheezing. Cardiovascular: Negative for chest pain, palpitations and leg swelling. Gastrointestinal: Negative for abdominal pain, blood in stool, constipation, diarrhea, heartburn, melena, nausea and vomiting. Genitourinary: Negative for dysuria, flank pain, frequency, hematuria and urgency. Musculoskeletal: Negative for back pain, falls, joint pain, myalgias and neck pain. Skin: Negative for itching and rash. Neurological: Negative for dizziness, tingling, tremors, sensory change, speech change, focal weakness, seizures, loss of consciousness, weakness and headaches. Endo/Heme/Allergies: Negative for environmental allergies and polydipsia. Does not bruise/bleed easily. Psychiatric/Behavioral: Negative for depression, hallucinations, memory loss, substance abuse and suicidal ideas. The patient is not nervous/anxious and does not have insomnia. PAST MEDICAL HISTORY Diagnosis Date Depression Diabetes mellitus type 1 (HCC) 10/17/2019 No past surgical history on file. FAMILY HISTORY Problem Relation Age of Onset Thyroid Mother Social History Tobacco Use Smoking status: Former Smoker Smokeless tobacco: Never Used Substance Use Topics Alcohol use: Not Currently Drug use: Yes Types: Marijuana Current Meds HUMALOG KWIKPEN INSULIN 100 unit/mL Inject 6 Units subcutaneously three times daily before meals. ACCU-CHEK FASTCLIX LANCET DRUM lancets CHECK GLUCOSE FOUR TIMES A DAY LANTUS SOLOSTAR U-100 INSULIN 100 unit/mL (3 mL) Inject 20 Units subcutaneously daily at bedtime. glucagon (GLUCAGON EMERGENCY KIT, HUMAN,) 1 mg solr Inject 1 mg intramuscularly one time only for 1dose. alcohol swabs USE TO TEST BLOOD GLUCOSE 4 TIMES A DAY ACCU-CHEK GUIDE ME GLUCOSE MTR CHECK GLUCOSE FOUR TIMES A DAY, BEFORE MEALS AND AT BEDTIME FLUoxetine HCl 20 mg tablet lamoTRIgine (LAMICTAL) 200 mg tablet Take 200 mg by mouth once daily. lithium carbonate 300 mg tablet TAKE 1/2 TABLET BY MOUTH EVERY MORNING AND 1 TABLET DAILY AT BEDTIME ondansetron (ZOFRAN) 4 mg tablet 1 TAB BY MOUTH EVERY 8 HOURS NEEDED NAUSEA. WATCH FOR SEDATION ACCU-CHEK GUIDE TEST STRIPS test strip CHECK GLUCOSE FOUR TIMES A DAY BD INSULIN PEN NEEDLE UF 31 gauge x 5/16 Inject 1 Each subcutaneously four times daily. Objective Ht 170.2 cm (5' 7 ) BMI 29.91 kg/m Physical Exam Constitutional: He is oriented to person, place, and time and well-developed, well-nourished, and in no distress. HENT: Head: Normocephalic and atraumatic. Eyes: EOM are normal. Cardiovascular: Normal rate and regular rhythm. Pulses: Dorsalis pedis pulses are 2+ on the right side and 2+ on the left side. Posterior tibial pulses are 2+ on the right side and 2+ on the left side. Pulmonary/Chest: Effort normal and breath sounds normal. Musculoskeletal: General: No edema. Cervical back: Normal range of motion and neck supple. Neurological: He is alert and oriented to person, place, and time. Skin: Skin is warm and dry. Feet:Shoes and socks removed, No deformities, ulcers, calluses, normal distal pulses and sensitive to 10 gm monofilament in all areas. Plan ASSESSMENT/PLAN: 1. Type 1 diabetes mellitus with hyperglycemia, with long-term current use of insulin ([facility]) - ICD9:250.01, 790.29, ICD10: E10.65 Insulin: Humalog and Lantus Plan of care: 1. HbA1C not done today. 2. Medication changes: CONTINUE Humalog and Lantus. See below. Your new insulin regimen: Long acting insulin: Insulin used for this is called: Lantus Bedtime dose 18 Units Rapid acting / mealtime insulin: Insulin used for this is called: Humalog Breakfast dose: 3 Units --> change to 1 unit per 15 grams of CHO Lunchtime dose 3 Units --> change to 1 unit per 15 grams of CHO Supper dose 3 Units --> change to 1 unit per 15 grams of CHO Your sliding scale, for additional units of the rapid acting insulin: Insulin used for this is called: Humalog Take this at meals, in addition to the above doses. If glucose reading is: 100-150 Take an additional 0 Units. 151-200 Take an additional 2 Units. 201-250 Take an additional 4 Units. 251-300 Take an additional 6 Units. 301-350 Take an additional 8 Units. 351-400 Take an additional 10 Units. Over 400 Take an additional 12 Units. 4. Continue Bry 2 sample. 5. Answered all questions. 6. Educated patient on therapeutic lifestyle changes. 7. Patient verbalized understanding of all the above instructions. 8. Lab records requested. 9. Patient is ready for a pump, Tandem rep notified. Follow up: Return in about 3 months (around 06/22/2020) for Diabetes follow-up. Adeola Bronson CNP 03/24/2020 4:18 PM Electronically signed by Adeola Flores (Template Storage Clerk Garnishment Specialist) Gui at 03/24/2020 4:21 PM EST documented in this encounter Assessments Diagnosis Type 1 diabetes mellitus with hyperglycemia, with long-term current use of insulin (HCC)- Primary Diagnosis Type 1 diabetes mellitus with hyperglycemia, with long-term current use of insulin (HCC)- Primary Diagnosis Type 1 diabetes mellitus with hyperglycemia, with long-term current use of insulin (HCC) Diagnosis Type 1 diabetes mellitus with hyperglycemia, with long-term current use of insulin (HCC)- Primary Hypoglycemia due to type 1 diabetes mellitus (HCC) High risk medication use - insulin Encounter for long-term (current) use of other medications Instructions * Patient Instructions* Adeola Bronson (Template Storage Clerk Garnishment Specialist) - 03/24/2020 3:50 PM EST Long acting insulin: Insulin used for this is called: Lantus Bedtime dose 18 Units Rapid acting / mealtime insulin: Insulin used for this is called: Humalog Breakfast dose 1 unit per every 15 grams of carbohydrate Lunchtime dose 1 unit per every 15 grams of carbohydrate Supper dose 1 unit per every 15 grams of carbohydrate Your sliding scale, for additional units of the rapid acting insulin: Insulin used for this is called: Humalog Take this at meals, in addition to the above doses. If glucose reading is: 100-150 Take an additional 0 Units. 151-200 Take an additional 2 Units. 201-250 Take an additional 4 Units. 251-300 Take an additional 6 Units. 301-350 Take an additional 8 Units. 351-400 Take an additional 10 Units. Over 400 Take an additional 12 Units. Blood sugar goals: First thing in the morning and before meals: 80-130 2 hours after meals: <180 documented in this encounter Medications Administered Section Inactive Administered Medications - up to 3 most recent administrations Medication Order MAR Action Action Date Dose Rate Site acetaminophen 975 mg tab(s) (TYLENOL) 975 mg, ORAL, PRE-OP ONCE, 1 dose, On Mon02/15/22 at 1130, If ordered PRN for pain, patient/guardian may elect to receive this medication for higher pain levels INSTEAD of the opioid, if preferred: Yes, Preprocedure Given 02/15/2022 11:40 AM EST 975 mg celecoxib 400 mg cap(s) (CeleBREX) 400 mg, ORAL, PRE-OP ONCE, 1 dose, On Mon02/15/22 at 1130, Preprocedure Given 02/15/2022 11:40 AM EST 400 mg gabapentin 300 mg cap(s) (NEURONTIN) 300 mg, ORAL, PRE-OP ONCE, 1 dose, On Mon02/15/22 at 1130, Preprocedure Given 02/15/2022 11:41 AM EST 300 mg lactated ringers iv infusion 5-30 mL/hr, INTRAVENOUS, CONTINUOUS, Starting on Mon02/15/22 at 1130, Until Mon02/15/22 at 1414, Preprocedure New Bag/Syringe/Bottle 02/15/2022 11:32 AM EST 30 mL/hr 30 mL/hr Additional Source Comments (unrecognized sect ion and content) No Status Records FoundNo Status Records FoundNo Status Records FoundNo Status Records FoundNo Status Records FoundNo Status Records FoundNo Status Records FoundNo Status Records FoundNo Status Records Found INFORMATION SOURCE (unrecogn ized section and content) DATE CREATED AUTHOR 09/26/2017 [facility] [employer] ([place]) DATE CREATED AUTHOR AUTHOR'S ORGANIZ ATION 04/20/2021 [address] DATE CREATED AUTHOR AUTHOR'S ORGANIZ ATION 05/29/2022 [facility] DATE CREATED AUTHOR AUTHOR'S ORGANIZ ATION 11/25/2022 [facility] DATE CREATED AUTHOR AUTHOR'S ORGANIZ ATION 08/18/2023 [facility] DATE CREATED AUTHOR AUTHOR'S ORGANIZ ATION 11/25/2023 [facility] DATE CREATED AUTHOR AUTHOR'S ORGANIZ ATION 01/16/2024 [facility] DATE CREATED AUTHOR AUTHOR'S ORGANIZ ATION 01/28/2024 [facility] DATE CREATED AUTHOR AUTHOR'S ORGANIZ ATION 01/31/2024 [facility] Source Comments (unrecognize d section and content) In the event this informatio n is protected by the Federal Confidentiality of Alcohol and Drug Abuse Patient Records regulations: The Federal rules restrict any use of the information to criminally investigate or prosecute any alcohol or drug abuse patient.[facility] the event this information is protected by the Federal Confidentiality of Alcohol and Drug Abuse Patient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 On Mon02/15/22 at 1130, Preprocedure 1140 (Given - Provid er: Megha Tapia RN) gabapentin 300 mg cap(s) (NEURONTIN) (COMPLETED) 300 mg, ORAL, PRE-OP ONCE, 1 dose, On Mon02/15/22 at 1130, Preprocedure 1141 (Given - Provid er: Megha Tapia RN) Continuous Medication Order 02/13/2022 02/14/2022 02/15/2022 lactated ringers iv infusion (CANCELED) 5-30 mL/hr, INTRAVENOUS, CONTINUOUS, Starting on Mon02/15/22 at 1130, Until Mon02/15/22 at 1414, Preprocedure 1132 (New Bag/Syring e/Bottle - Provider: Megha Tapia RN)1414 (Due: Infusion Complete) PRN Medication Order 02/13/2022 02/14/2022 02/15/2022 bupivacaine HCl injection (SENSORCAINE) (CANCELED) X (OR/PROCEDURE) PRN, Starting on Mon02/15/22 at 1406, Until Mon02/15/22 at 1425, Intraprocedure 1406 (Given - Provid er: Bibiana Melgar MD - Comment: Local injection at op-site) NaCl 0.9% irrigation bottle (CANCELED) X (OR/PROCEDURE) PRN, Starting on Mon02/15/22 at 1348, Until Mon02/15/22 at 1425, Intraprocedure 1348 (Given - Provid er: Bibiana Melgar MD - Comment: On sterile field, used throughout procedure at op-site) FOR RECORDS PERTAINING TO PATIENTS WHO ARE OR HAVE BEEN ENROLLED IN A CHEMICAL DEPENDENCY/SUBSTANCEABUSE PROGRAM, SOME INFORMATION MAY BE OMITTED. This clinical summary was aggregated from multiple sources. Caution should be exercised in using it in the provision of clinical care. This summary normalizes information from multiple sources, and as a consequence, information in this document may materially change the coding, format and clinical context of patient data. In addition, data may be omitted in some cases. CLINICAL DECISIONS SHOULD BE BASED ON THE PRIMARY CLINICAL RECORDS. [employer] [facility]. provides no warranty or guarantee of the accuracy or completeness of information in this document.
== END | disposition home or self-care (01) ==
DX: Z00.00 Encounter for general adult medical examination without abnormal findings (principal); E11.9 Type 2 diabetes mellitus without complications; Z12.5 Encounter for screening for malignant neoplasm of prostate; F32.A Depression, unspecified
CPT/HCPCS: 80053; 84153; 84439; 84443; 85027; G0103

== ENCOUNTER → 2024-05-21 | Outpatient (CLI) | payer BC, SELFPAY ==
[2024-05-21 09:55] LABS: ALB/GLOB Ratio 0.9 RATIO (0.9-2.4); AST(SGOT) 34 U/L (15-37); Alanine Aminotransfer ALT/SGPT 34 U/L (16-61); Albumin, Serum 3.3 g/dL (3.2-5.0); Alkaline Phosphatase 89 U/L (45-117); Anion Gap 6 (5-15); BUN 18 mg/dL (7-18); BUN/Creat Ratio 22.2 RATIO (10-20); Calcium,Total 8.8 mg/dL (8.5-10.1); Chloride 105 mmol/L (98-107); Cholesterol 180 mg/dL (200); Creatinine, Serum 0.81 mg/dL (0.70-1.30); EST Glomerular Filtration Rate 111 mL/min (>60); Est Glom Filt Rate - Afr Amer 135 mL/min (>60); Globulin 3.6 g/dL (2.2-4.2); Glucose 190 mg/dL (74-106); High Density Lipoprotein 82 mg/dL; Potassium 4.3 mmol/L (3.5-5.1); Protein, Total 6.9 g/dL (6.4-8.2); Sodium Level 135 mmol/L (136-145); Triglycerides 66 mg/dL; Very Low Density Lipoprotein 13 mg/dL (5-40)
[2024-05-21 10:37] LABS: Microalbumin,Random Urine 7.5 mg/L (NO RANGE EST.); Microalbumin:Creatinine Ratio 6.5 mg/g CRE (<30 mg/g CRE)
== END | disposition home or self-care (01) ==
LOC: LABSPEC 09:07
DX: E10.65 Type 1 diabetes mellitus with hyperglycemia (principal); Z79.4 Long term (current) use of insulin
CPT/HCPCS: 80053; 80061; 82043; 82570; 84439; 84443